=== PATIENT | male | born 1965 | race Caucasian/White ===

== ENCOUNTER 2017-10-10 13:39 | Emergency (ER) | payer BC, OTHER, SELFPAY ==
[2017-10-10 15:47] VITALS: BP 210/110; PULSE 74; RESP 18; TEMP 37; O2SAT 96; BMI 31.0
[2017-10-10 16:05] LABS: Basophils # 0.1 K/mm3 (0-0.2); Basophils % 0.4 % (0.1-2.0); Eosinophils # 0.1 K/mm3 (0.0-0.4); Eosinophils % 1.1 % (0.1-12.0); Hematocrit 48.6 % (42.0-52.0); Hemoglobin 15.3 g/dL (14.1-18.0); Lymphocytes # 2.2 K/mm3 (0.7-4.5); Lymphocytes % 18.5 K/mm3 (10-50); Mean Corpuscular HGB Conc 31.5 g/dL (31.8-35.4); Mean Corpuscular Hemoglobin 25.1 pg (27.0-31.2); Mean Corpuscular Volume 79.5 fl (80-94); Monocytes # 0.6 K/mm3 (0.1-1.0); Monocytes % 5.3 % (1.7-9.3); Neutrophils # 8.8 K/mm3 (1.8-7.8); Neutrophils % 74.7 % (37.0-80.0); Platelet Count 303 K/mm3 (142-424); Red Blood Count 6.12 M/mm3 (4.60-6.20); Red Cell Distribution Width 14.4 % (11.5-17.5); White Blood Count 11.7 K/mm3 (4.8-10.8)
[2017-10-10 16:28] LABS: Alanine Aminotransferase 29 U/L (12-78); Albumin Level 3.6 gm/dL (3.4-5.0); Albumin/Globulin Ratio 1.1 (1.1-1.8); Alkaline Phosphatase 67 U/L (46-116); Anion Gap 8.5 mEq/L (5-15); Bilirubin,Total 0.4 mg/dL (0.2-1.0); Blood Urea Nitrogen 15 mg/dL (7-18); CKMB Relative Index 0.6 U/L (0-4.0); Calcium 8.4 mg/dL (8.5-10.1); Carbon Dioxide 31 mmol/L (21.0-32.0); Chloride 103 mmol/L (98-107); Creatine Kinase 136 U/L (38-174); Creatine Kinase MB 0.8 mg/ml (0.0-3.6); Creatinine Clearance Estimated 95 mg/ml (0-300); Estimated Glomerular Filt Rate > 60 ml/min (>60); GFR (African American) > 60 ML/MIN (>60); Globulin 3.4 gm/dl (1.3-3.2); Glucose 144 mg/dL (74-106); Sodium 139 mmol/L (136-145); Troponin I < 0.02 ng/ml (0.00-0.06)
[2017-10-10 16:30] LABS: Aspartate Amino Transferase 19 U/L (15-37)
[2017-10-10 16:31] LABS: Potassium 3.5 mmoL/L (3.5-5.1)
--- NOTE | 2017-10-10 16:43 | HMH.EDGENADL ---
ED Disposition Clinical Impression: Uncontrolled hypertension Disposition: Home, Self-Care Condition on Discharge: Good Instructions: High Blood Pressure Additional Instructions: See your physician in the office tomorrow as scheduled. Referrals: Oleksandr Velazquez MD [Primary Care Provider] - - Critical Care Critical Care Time: No Attestation: On 10/10/17, the high probability of a clinically significant, sudden or life threatening deterioration of the following system(s) required my full and direct attention, intervention and personal management. The time I documented below is in addition to time spent performing reported procedures but includes the following listed in this critical care notation. Medical Decision Making - Medical Records Medical records reviewed: Yes: I reviewed the patient's medical records. Vital Signs: 10/10/17 15:47 10/10/17 17:29 10/10/17 18:18 Temperature 98.6 F Temperature Source Oral Pulse Rate [Right Radial] 74 Respiratory Rate 18 Blood Pressure 197/103 206/112 Blood Pressure [Left Arm] 210/110 Blood Pressure Mean [Left Arm] 143 Blood Pressure Source [Left Arm] Manual Cuff/ Auscultation 02 Sat by Pulse Oximetry 96 Oxygen Delivery Method Room Air 10/10/17 19:05 Temperature Temperature Source Pulse Rate [Right Radial] Respiratory Rate Blood Pressure 202/109 Blood Pressure [Left Arm] Blood Pressure Mean [Left Arm] Blood Pressure Source [Left Arm] 02 Sat by Pulse Oximetry Oxygen Delivery Method - Lab Data Lab Results 10/10/17 15:56: WBC 11.7 H, RBC 6.12, Hgb 15.3, Hct 48.6, MCV 79.5 L, MCH 25.1 L, MCHC 31.5 L, RDW 14.4, Plt Count 303, MPV 8.0, Neut % (Auto) 74.7, Lymph % (Auto) 18.5, [place] % (Auto) 5.3, Eos % (Auto) 1.1, Baso % (Auto) 0.4, Neut # (Auto) 8.8 H, Lymph # (Auto) 2.2, [place] # (Auto) 0.6, Eos # (Auto) 0.1, Baso # (Auto) 0.1 10/10/17 15:56: Sodium 139, Potassium 3.5, Chloride 103, Carbon Dioxide 31, Anion Gap 8.5, BUN 15, Creatinine 1.20, Estimated Creat Clear 95, Estimated GFR > 60, Est GFR ( Amer) > 60, Glucose 144 H, Calcium 8.4 L, Total Bilirubin 0.4, AST 19, ALT 29, Alkaline Phosphatase 67, Total Creatine Kinase 136, CK-MB (CK-2) 0.8, CK-MB (CK-2) Rel Index 0.6, Troponin I < 0.02, Total Protein 7.0, Albumin 3.6, Globulin 3.4 H, Albumin/Globulin Ratio 1.1 Result diagrams: 10/10/17 15:56 10/10/17 15:56 Orders (Tests/Meds): ED MEDICATIONS Generic Name Dose Route Start Last Admin Trade Name Freq PRN Reason Stop Dose Admin Sodium Chloride 10 ml 10/10/17 16:22 Saline Flush 10ml Syringe IV 11/09/17 16:21 NEEDED PRN Maintain IV Site Discontinued Medications Generic Name Dose Route Start Last Admin Trade Name Freq PRN Reason Stop Dose Admin Labetalol HCl 10 mg 10/10/17 16:52 10/10/17 17:29 Labetalol Hcl 20mg/4ml Syringe IV 10/10/17 16:53 10 mg ONCE ONE Administration Labetalol HCl 10 mg 10/10/17 18:15 10/10/17 18:18 Labetalol Hcl 20mg/4ml Syringe IV 10/10/17 18:16 10 mg ONCE ONE Administration Labetalol HCl 20 mg 10/10/17 19:01 10/10/17 19:05 Labetalol 5mg/Ml 20ml Mdv IV 10/10/17 19:02 20 mg ONCE ONE Administration ORDERS Category Date Time Status EKG Request [ECG Request by /Spenser] Stat Y 10/10/17 16:38 Ordered - ECG Data Tracing #1 EKG interpreted by Sotero Vee MD: Rhythm: sinus Rate: 72 [place]: normal Ectopy: none Conduction: normal ST Segment Changes: none T Wave Changes: none Q Waves: none No evidence of acute ischemia or injury Baseline artifact present, but I consider the EKG adequate for accurate interpretation. - Max Inquiry Pt receiving controlled substance: No Medical Decision Making Narrative: Patient declines prescription for blood pressure medication. He says that he sees his physician tomorrow and wants to wait to get his prescription from him. He has not seen his physician for a year.
[2017-10-10 17:29] VITALS: BP 197/103
[2017-10-10 18:18] VITALS: BP 206/112
[2017-10-10 19:05] VITALS: BP 202/109
== END 2017-10-10 20:38 | disposition home or self-care (01) ==
PROVIDERS: Emergency Provider Emergency Medicine; PCP Family Medicine
DX: I10 Essential (primary) hypertension (principal)
CPT/HCPCS: 80053; 82550; 82553; 84484; 85025; 93005; 93041; 96374; 96376; 99284

== ENCOUNTER 2020-02-06 14:03 | Emergency (ER) | payer BC, SELFPAY ==
[2020-02-06 14:09] VITALS: BP 188/95; PULSE 102; RESP 22; TEMP 36.7; O2SAT 98; BMI 31.1
[2020-02-06 14:19] VITALS: BP 188/95; PULSE 102; RESP 16; TEMP 36.7; O2SAT 98; BMI 30.2
--- NOTE | 2020-02-06 14:26 | HMH.EDUTC ---
[facility] [place] Clinical Impression: Bronchitis Sinusitis Qualifiers: Sinusitis location: unspecified location Chronicity: unspecified Qualified Code(s): J32.9 - Chronic sinusitis, unspecified Disposition: Home, Self-Care Condition on Discharge: Good Instructions: Sinusitis, Sinus Headache, Acute Bronchitis, DI for Sinusitis, DI for Acute Bronchitis, Albuterol, Azithromycin Additional Instructions: ? Start antibiotic today. Be sure to complete entire prescription even if feeling better ? Monitor temp. Tylenol every 4 hours as needed and / or ibuprofen every 6 hours as needed ( As long as your primary care physician has told you that it ok to take both. For fever/aches/pains ER if no less than 101 despite Tylenol or Motrin ? Humidifier/vaporizer or hot steamy shower ? Inhaler every 4-6 hours as needed like we discussed. If unsure how to use it, ask pharmacist to demonstrate how. Should help open airways and improve cough, wheezing, and shortness of breath ? Mucinex during the day for your cough and cough suppressant only at night. Be sure to drink lots of water. Insurance may not cover a prescriptions for mucinex. Might be cheaper to get 400mg tablets and take 2 tablet in the morning, mid-day and evening with lots of water. Follow up IMMEDIATELY for new or worsening of symptoms OR no noticeable improvement over the next 48-72 hours. 911 immediately for any life threatening symptoms such as chest pain or difficulty breathing Your blood pressure was elevated today in the [facility] make sure to follow up with Your family doctor for evaluation and further treatment Prescriptions: Albuterol Sulfate [Albuterol HFA Inhaler] 1 - 2 puffs IH Q4-6H PRN #1 inh PRN Reason: Shortness Of Breath Or Wheezing Prescription Printed Mometasone Furoate [Nasonex] 2 sprays NS DAILY #1 spray.pump Prescription Printed Azithromycin [Z-Adriano 250mg Tab] 250 mg PO DIRECTED #6 tab Prescription Printed Referrals: Provider,Referral, MD [Primary Care Provider] - As needed Time of Disposition: 14:53 Medical Decision Making - Max Inquiry Pt receiving controlled substance: No Max was queried for this patient: No Vital Signs: 02/06/20 14:09 02/06/20 14:19 02/06/20 15:07 Temperature 98.1 F 98.1 F 98.2 F Temperature Source Oral Oral Oral Pulse Rate 80 Pulse Rate [Right] 102 H 102 H Respiratory Rate 22 16 16 Blood Pressure 180/80 H Blood Pressure [Right Arm] 188/95 H 188/95 H Blood Pressure Mean [Right Arm] 126 126 Blood Pressure Source Automatic Cuff Blood Pressure Source [Right Arm] Automatic Cuff Blood Pressure Position Sitting Blood Pressure Position [Right Arm] Sitting 02 Sat by Pulse Oximetry 98 98 Oxygen Delivery Method Room Air Room Air [facility] [place] HPI - General Stated complaint: sore throat,cough,SOA Time Seen by Provider: 02/06/20 14:26 Mode of Arrival: Ambulatory Source of Information: Patient Limitations: No Limitations Description of Symptoms (Recalled from Triage Doc. by RN): Pt advises he has had a dry nagging cough for the past month. Non-productive, denies fever and advises at times he becomes SOA HEENT Symptoms (Recalled from RN notes): No Resp Symptoms (Recalled from RN notes): No Skin Symptoms (Recalled from RN notes): No MS Symptoms (Recalled from RN notes): No Functional Status (Recalled from RN notes): na - History of Present Illness Provider Complaint: Patient state that he has been having a nagging non-productive cough on and off for about a month States that he has been having throat irritation and feeling scratchy at times States that when he is sitting sometimes the cough feels worse and feels like he gets short of breath at times. 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 - Related Data Home Medications Medication Instructions Recorded Confirmed Pravastatin Sodium [Pravachol 40mg 40 mg PO DAILY 10/10/17 10/10/17 Tablet] Previous Rx's
--- NOTE | 2020-02-06 14:27 | XR_ITS ---
PROCEDURE: XR CHEST 2V CLINICAL HISTORY: cough COMPARISON: No exams were available for comparison FINDINGS: The cardiomediastinal silhouette and pulmonary vascularity are within normal limits. The lungs are clear without infiltrates, suspicious nodules, or pleural effusions. There is evidence of old granulomatous disease. IMPRESSION: No acute findings. Dictated by: Fortunato Aranda MD 02/06/2020 14:52 Electronically signed by Fortunato Aranda MD in [place] 02/06/2020 14:52
[2020-02-06 15:07] VITALS: BP 180/80; PULSE 80; RESP 16; TEMP 36.8; O2SAT 98
== END 2020-02-06 15:08 | disposition home or self-care (01) ==
PROVIDERS: Emergency Provider Nurse Practitioner
DX: J20.9 Acute bronchitis, unspecified (principal); J32.9 Chronic sinusitis, unspecified
CPT/HCPCS: 71046; 99201

== ENCOUNTER 2020-06-08 13:57 | Emergency (ER) | payer BC, SELFPAY ==
[2020-06-08 13:58] VITALS: BP 137/100; PULSE 69; RESP 20; O2SAT 97; BMI 22.9
[2020-06-08 14:33] VITALS: BP 213/104; PULSE 62; RESP 20; TEMP 36.7; O2SAT 97; BMI 22.8
--- NOTE | 2020-06-08 15:04 | HMH.EDUTC ---
[facility] [place] Disposition Clinical Impression: Dental abscess Hypertension Qualifiers: Hypertension type: unspecified Qualified Code(s): I10 - Essential (primary) hypertension Disposition: Home, Self-Care Condition on Discharge: Good Instructions: Hypertension (Alternative Therapy), Tooth Abscess Additional Instructions: You was given list of accepting physicans make sure to get Family Doctor and follow up for further treatment Return if needed Straight to ER if any life threatening symptoms Straight to ER if any life threatening symptoms Follow up with Dentist as soon as possible Prescriptions: Amlodipine Besylate/Benazepril [Amlodipine-Benazepril 10-40 mg] 1 each PO DAILY 30 Days #30 cap Transmission [facility]: [facility] Amoxicillin [Amoxicillin 500mg Cap] 500 mg PO TID #30 cap Transmission Status: Received by [facility] 359 Referrals: PCP,No [Primary Care Provider] - As needed Cresencio Trotter [Referring] - Forms: Work/School Release Time of Disposition: 15:15 Medical Decision Making - Max Inquiry Pt receiving controlled substance: No Max was queried for this patient: No Vital Signs: 06/08/20 13:58 06/08/20 14:33 06/08/20 15:06 Temperature 98.0 F Temperature Source Oral Pulse Rate Pulse Rate [Left Radial] 69 62 Respiratory Rate 20 20 Blood Pressure Blood Pressure [Right Arm] 137/100 H 213/104 H 148/78 H Blood Pressure Mean [Right Arm] 112 140 101 Blood Pressure Source [Right Arm] Automatic Cuff Automatic Cuff Blood Pressure Position [Right Arm] Sitting Sitting 02 Sat by Pulse Oximetry 97 97 Oxygen Delivery Method Room Air Room Air 06/08/20 15:13 06/08/20 15:17 Temperature 98.0 F Temperature Source Pulse Rate 62 Pulse Rate [Left Radial] Respiratory Rate 20 Blood Pressure 148/78 H Blood Pressure [Right Arm] 148/78 H Blood Pressure Mean [Right Arm] 101 Blood Pressure Source [Right Arm] Automatic Cuff Blood Pressure Position [Right Arm] Sitting 02 Sat by Pulse Oximetry Oxygen Delivery Method [facility] [place] HPI - General Stated complaint: bp high dizzy Time Seen by Provider: 06/08/20 15:04 Mode of Arrival: Ambulatory Source of Information: Patient Limitations: No Limitations Description of Symptoms (Recalled from Triage Doc. by RN): PATIENT C/O ELEVATED BLOOD PRESSURE. HE REPORTS HE HAS BEEN OUT OF HIS BLOOD PRESSURE MEDICATIONS FOR AT LEAST 1 MONTH. HE STATES HE DID HAVE SOME DIZZINESS EARLY IN THE DAY AT WORK, BUT THAT HAS SUBSIDED. DENIES ANY SYMPTOMS AT THIS TIME HEENT Symptoms (Recalled from RN notes): No Resp Symptoms (Recalled from RN notes): No Skin Symptoms (Recalled from RN notes): No MS Symptoms (Recalled from RN notes): No Functional Status (Recalled from RN notes): WNL - History of Present Illness Provider Complaint: Patient state that he has high blood pressure and has been out of his medication for over a month States that he thinks he is getting an abscessed tooth that for the last couple of days he has been having some swelling and pain in his right lower teeth and not sure if that is causing his blood pressure to be elevated or not States that he was dizzy earlier and they checked his blood pressure and it was elevated so they made him come in States that he is no longer feeling dizzy and feeling better but wanted to see if he could get a refill on his medication until he can get a PCP - Related Data Home Medications Medication Instructions Recorded Confirmed Pravastatin Sodium [Pravachol 40mg 40 mg PO DAILY 10/10/17 10/10/17 Tablet] Amlodipine Besylate/Benazepril 1 cap PO DAILY 06/08/20 06/08/20 [Amlodipine-Benazepril 10-40 mg] Previous Rx's Medication Instructions Recorded Albuterol Sulfate [Albuterol HFA 1 - 2 puffs IH Q4-6H PRN #1 inh 02/06/20 Inhaler] Azithromycin [Z-Adriano 250mg Tab] 250 mg PO DIRECTED #6 tab 02/06/20 Mometasone Furoate [Nasonex] 2 sprays NS DAILY #1 spray.pump 02/06/20
[2020-06-08 15:06] VITALS: BP 148/78
[2020-06-08 15:13] VITALS: BP 148/78
[2020-06-08 15:17] VITALS: BP 148/78; PULSE 62; RESP 20; TEMP 36.7; O2SAT 97
== END 2020-06-08 15:20 | disposition home or self-care (01) ==
PROVIDERS: Emergency Provider Nurse Practitioner
DX: K04.7 Periapical abscess without sinus (principal); I10 Essential (primary) hypertension
CPT/HCPCS: 99202

== ENCOUNTER → 2020-08-25 14:33 | Outpatient (CLI) | payer BC, SELFPAY ==
[2020-08-27 10:10] LABS: Covid-19 Nasal PCR Sendout Lex POSITIVE
== END ==
PROVIDERS: PCP Family Medicine; Visit Provider Family Medicine
DX: Z20.828 Contact with and (suspected) exposure to other viral communicable diseases (principal); U07.1 COVID-19
CPT/HCPCS: U0004

== ENCOUNTER → 2020-12-22 15:24 | Outpatient (CLI) | payer BC, SELFPAY | PROVIDERS: PCP Family Medicine; Visit Provider Family Medicine | DX: Z20.822 Contact with and (suspected) exposure to COVID-19 (principal) | CPT/HCPCS: U0003 ==

== ENCOUNTER 2020-12-29 21:40 | Inpatient (IN) | payer BC, SELFPAY ==
[2020-12-29] VITALS (7 sets, daily range): BP systolic 147–204; BP diastolic 100–160; PULSE 155–181; RESP 16–22; TEMP 37; O2SAT 93–96; BMI 30.4
--- NOTE | 2020-12-29 21:48 | ECG_ITS ---
APPROVED REPORT Exam: Resting ECG HR:186 bpm ECG Measurements Heart Rate 186 AXES QRSd 88 QRS 76 QT 248 T -26 QTc 436 Conclusion Atrial fibrillation with rapid ventricular response with premature ventricular or aberrantly conducted complexes Minimal voltage criteria for LVH, may be normal variant Septal infarct, age undetermined Abnormal ECG Electronically signed by : Christophe Mary, 12/30/2020 17:39:00
--- NOTE | 2020-12-29 22:01 | XR_ITS ---
PROCEDURE: XR CHEST PORTABLE CLINICAL HISTORY: SOa Shortness of air COMPARISON: CR XR CHEST 2V from 02/06/2020 FINDINGS: Cardiomegaly. There are low lung volumes. There is prominence of the interstitium which appears greater on the right compared to the left. This in part may be due to the radiographic technique with right aspect of the chest be less penetrated. No lobar consolidation or collapse. Nodularity is present in the left perihilar region. This had a somewhat similar appearance on the previous exam and is felt to be due to a overlapping vessels. No acute bony abnormalities. IMPRESSION: Low lung volumes with mild cardiomegaly. Interstitium appears prominent as described above which may in part be due to the low lung volumes and radiographic technique. Cannot exclude interstitial pneumonitis on the right. Upright PA and lateral chest or chest CT may provide further evaluation. Dictated by: Fortunato Aranda MD 12/30/2020 05:21 Fortunato Aranda MD in [place] 12/30/2020 05:21
[2020-12-29 22:12] LABS: Basophils # 0.1 K/mm3 (0-0.2); Basophils % 0.4 % (0.1-2.0); Eosinophils # 0.2 K/mm3 (0.0-0.4); Eosinophils % 1.7 % (0.1-12.0); Hematocrit 51.8 % (42.0-52.0); Hemoglobin 16.5 g/dL (14.1-18.0); Lymphocytes # 2.7 K/mm3 (0.7-4.5); Lymphocytes % 20.8 % (10-50); Mean Corpuscular HGB Conc 31.8 g/dL (31.8-35.4); Mean Corpuscular Hemoglobin 23.9 pg (27.0-31.2); Mean Corpuscular Volume 75.2 fl (80-94); Mean Platelet Volume 7.5 fl (7.4-10.4); Monocytes # 0.7 K/mm3 (0.1-1.0); Monocytes % 5.7 % (1.7-9.3); Neutrophils # 9.1 K/mm3 (1.8-7.8); Neutrophils % 71.4 % (37.0-80.0); Platelet Count 253 K/mm3 (142-424); Red Blood Count 6.89 M/mm3 (4.60-6.20); Red Cell Distribution Width 14.8 % (11.5-17.5); White Blood Count 12.8 K/mm3 (4.8-10.8)
[2020-12-29 22:14] LABS: Alanine Aminotransferase 25 U/L (12-78); Albumin Level 4.2 g/dl (3.5-5.0); Albumin/Globulin Ratio 1.4 (1.1-1.8); Alkaline Phosphatase 87 U/L (38-126); Aspartate Amino Transferase 26 U/L (17-59); Bilirubin,Total 0.7 mg/dl (0.2-1.3); Blood Urea Nitrogen 19 mg/dl (9-20); Calcium 9.4 mg/dl (8.4-10.2); Carbon Dioxide 21 mmol/L (22.0-30.0); Creatinine Clearance Estimated 105 mL/min (50-200); Estimated Glomerular Filt Rate 77 ml/min (>60); GFR (African American) 93 ML/MIN (>60); Globulin 2.9 g/dL (1.3-3.2); Glucose 128 mg/dl (74-100); Potassium 4.1 mmoL/L (3.5-5.1); Sodium 140 mmol/L (136-145); Total Protein,Serum 7.1 g/dl (6.3-8.2)
[2020-12-29 22:19] LABS: C-Reactive Protein 8.1 mg/L (0-4)
--- NOTE | 2020-12-29 22:29 | HMH.EDSOB ---
ED Disposition Clinical Impression: Atrial fibrillation with rapid ventricular response Disposition: Admitted As Inpatient Condition on Discharge: Good - Critical Care Critical Care Time: No Attestation: On 12/29/20, the high probability of a clinically significant, sudden or life threatening deterioration of the following system(s) required my full and direct attention, intervention and personal management. The time I documented below is in addition to time spent performing reported procedures but includes the following listed in this critical care notation. Medical Decision Making - Medical Records Medical records reviewed: Yes: I reviewed the patient's medical records. - Max Inquiry Pt receiving controlled substance: No Vital Signs: 12/29/20 21:41 12/29/20 22:30 Temperature 98.6 F Temperature Source Oral Pulse Rate 177 H Pulse Rate [Right] 179 H Respiratory Rate 16 20 Blood Pressure 147/119 H Blood Pressure [Right Arm] 165/128 H Blood Pressure Mean 126 Blood Pressure Mean [Right Arm] 140 02 Sat by Pulse Oximetry 95 94 L Oxygen Delivery Method Room Air Room Air - Lab Data Lab results reviewed: Yes: I reviewed the patient's lab results. Lab Results 12/29/20 21:55: WBC 12.8 H, RBC 6.89 H, Hgb 16.5, Hct 51.8, MCV 75.2 L, MCH 23.9 L, MCHC 31.8, RDW 14.8, Plt Count 253, MPV 7.5, Neut % (Auto) 71.4, Lymph % (Auto) 20.8, [place] % (Auto) 5.7, Eos % (Auto) 1.7, Baso % (Auto) 0.4, Neut # (Auto) 9.1 H, Lymph # (Auto) 2.7, [place] # (Auto) 0.7, Eos # (Auto) 0.2, Baso # (Auto) 0.1, ESR 1 12/29/20 21:55: Sodium 140, Potassium 4.1, Carbon Dioxide 21 L, BUN 19, Creatinine 1.00, Estimated Creat Clear 105, Estimated GFR 77, Est GFR ( Amer) 93, Glucose 128 H, Calcium 9.4, Total Bilirubin 0.7, AST 26, ALT 25, Alkaline Phosphatase 87, Troponin I < 0.01, C-Reactive Protein 8.1 H, Total Protein 7.1, Albumin 4.2, Globulin 2.9, Albumin/Globulin Ratio 1.4, Procalcitonin 0.056 Result diagrams: 12/29/20 21:55 12/29/20 21:55 Orders (Tests/Meds): ED MEDICATIONS Generic Name Dose Route Start Last Admin Trade Name Freq PRN Reason Stop Dose Admin Diltiazem HCl 100 mg/ Sodium 100 mls @ 5 mls/hr 12/29/20 22:15 12/29/20 22:13 Chloride IV 01/28/21 22:14 5 mls/hr .Q20H KARLIE Administration Protocol Discontinued Medications Generic Name Dose Route Start Last Admin Trade Name Freq PRN Reason Stop Dose Admin Diltiazem HCl 10 mg 12/29/20 22:11 12/29/20 22:13 Diltiazem 25mg/5ml Vial IV 12/29/20 22:12 10 mg ONCE ONE Administration Furosemide 40 mg 12/29/20 22:22 12/29/20 22:29 Furosemide 40mg/4ml Vial IV 12/29/20 22:23 40 mg ONCE ONE Administration ORDERS Category Date Time Status Chest XR -- portable [XR chest portable] Stat Exams 12/29/20 22:01 Taken BNP [Brain Natriuretic Peptide] Stat Lab 12/29/20 21:55 Received C-Reactive Protein Stat Lab 12/29/20 21:55 Results Comprehensive Metabolic Panel Stat Lab 12/29/20 21:55 Results Covid-19 Nasal PCR ([facility]) Routine Lab 12/29/20 22:10 Received Free T4 (Free Thyroxine) Stat Lab 12/29/20 21:55 Received Procalcitonin Stat Lab 12/29/20 21:55 Results Thyroid Stimulating Hormone Stat Lab 12/29/20 21:55 Results Troponin I Q3H Lab 12/30/20 01:15 Ordered Troponin I Q3H Lab 12/30/20 04:15 Ordered Troponin I Stat Lab 12/29/20 21:55 Results - Radiology Data #1 Image(s): Chest Image Reviewed: Yes I reviewed the patient's radiology image Preliminary Findings: Abnormal (cm/chf) - ECG Data Tracing #1 Arrhythmias present: afib, aflutter Ischemic changes: non-specific ST-T wave changes - Physician Consults Physician Consulted: rosa Reason -: Pt condition - KISHORE Score for Non-Stemi Age of Patient: 50-59 years old Heart Rate: 150-199 bpm Systolic Blood Pressure: 160-199 mmHg Serum Creatinine: 0.80-1.19 mg/dl CHF [place] Class: II-Pulmonary Rales or Jug Other Risk Factors: None Non-Stemi Risk Sco
[2020-12-29 22:33] LABS: Procalcitonin 0.056 ng/mL (0.0-2.0)
[2020-12-29 22:36] LABS: Erythrocyte Sedimentation Rate 1 mm/hr (0-20); Troponin I < 0.01 ng/ml (0.00-0.034)
[2020-12-29 22:46] LABS: NT Pro Brain Natriuretic Pep. 2370 pg/mL (0-125)
[2020-12-29 22:57] LABS: Lactic Acid 0.9 mmol/L (0.7-2.1)
[2020-12-29 22:57] LABS: Anion Gap 13.1 mEq/L (5-15); Chloride 110 mmol/L (98-107)
[2020-12-29 23:02] LABS: Thyroid Stimulating Hormone < 0.02 uIU/mL (0.465-4.68)
--- NOTE | 2020-12-29 23:07 | PC.NURSE ---
cardizem increased to 10
--- NOTE | 2020-12-29 23:11 | PC.NURSE ---
Enoxaparin medication would not scan. verified by Briana Barone.
[2020-12-29 23:14] LABS: Free T4 (Free Thyroxine) 4.05 ng/dl (0.78-2.19)
--- NOTE | 2020-12-29 23:27 | PC.NURSE ---
cardizem increased to 15
[2020-12-30] VITALS (26 sets, daily range): BP systolic 119–164; BP diastolic 77–109; PULSE 100–186; RESP 15–20; TEMP 36.6–37.3; O2SAT 90–98; BMI 30.3; BMI 28.2
--- NOTE | 2020-12-30 00:20 | PC.NURSE ---
cardizem dcreased to 10
--- NOTE | 2020-12-30 00:58 | PC.NURSE ---
patient to the floor at this time via wheelchair.
--- NOTE | 2020-12-30 01:04 | PC.NURSE ---
patient up to floor via wheelchair.
[2020-12-30 01:22] LABS: Troponin I < 0.01 ng/ml (0.00-0.034)
--- NOTE | 2020-12-30 03:46 | PC.NURSE ---
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 blood pressures remain systolic greater than 130s and diastolic greater than 100. patient denies any soa. o2 was applied for history of sleep apnea, patient states he doesn't wear cpap at home but is supposed to. denies pain, soa, cp. dr. bolanos notified, no new orders received
[2020-12-30 04:26] LABS: Basophils % 0.2 % (0.1-2.0); Eosinophils # 0.1 K/mm3 (0.0-0.4); Hematocrit 50.9 % (42.0-52.0); Hemoglobin 16.3 g/dL (14.1-18.0); Lymphocytes # 0.7 K/mm3 (0.7-4.5); Lymphocytes % 5.5 % (10-50); Mean Corpuscular Hemoglobin 24.3 pg (27.0-31.2); Mean Corpuscular Volume 75.9 fl (80-94); Mean Platelet Volume 7.6 fl (7.4-10.4); Monocytes # 0.2 K/mm3 (0.1-1.0); Monocytes % 1.8 % (1.7-9.3); Neutrophils # 11.5 K/mm3 (1.8-7.8); Neutrophils % 91.6 % (37.0-80.0); Platelet Count 245 K/mm3 (142-424); White Blood Count 12.6 K/mm3 (4.8-10.8)
[2020-12-30 04:32] LABS: MANUAL DIFFERENTIAL MANUAL DIFFERENTIAL (MANUAL DIFF)
[2020-12-30 04:33] LABS: Anion Gap 15.7 mEq/L (5-15); Blood Urea Nitrogen 19 mg/dl (9-20); Calcium 9.3 mg/dl (8.4-10.2); Carbon Dioxide 19 mmol/L (22.0-30.0); Chloride 109 mmol/L (98-107); Chol/HDL Ratio 6.1 (1-3.5); Cholesterol 188 mg/dl (140-200); Creatinine Clearance Estimated 97 mL/min (50-200); Estimated Glomerular Filt Rate 77 ml/min (>60); GFR (African American) 93 ML/MIN (>60); Glucose 163 mg/dl (74-100); HDL Cholesterol 31 mg/dl (40-60); Magnesium 2.1 mg/dl (1.6-2.3); Potassium 3.7 mmoL/L (3.5-5.1); Sodium 140 mmol/L (136-145); Triglycerides 66 mg/dl (30-150); VLDL Cholesterol 13 mg/dL (0-40)
[2020-12-30 04:45] LABS: Direct LDL Cholesterol 136.34 mg/dL (100-129)
[2020-12-30 05:05] LABS: Troponin I < 0.01 ng/ml (0.00-0.034)
[2020-12-30 05:26] LABS: Lymphocytes % 4 % (10-50); Neutrophils % 96 % (42-76); Total Cells Counted 100
[2020-12-30 05:27] LABS: Acanthocytes 1+; Ovalocytes 1+; Platelet Estimate Normal; Stomatocytes 1+
--- NOTE | 2020-12-30 05:34 | PC.NURSE ---
shift summary. patient has denies cp, soa, nausea or vomiting. panel monitor has continued to show afib with rvr with rate 130s to 160s. patient remains hypertensive. patient prepped for possible heart cath with cardiology consult. voiding clear, yellow urine.
--- NOTE | 2020-12-30 07:33 | HMH.HP ---
*Admission Date: 12/30/20 *Chief complaint: Shortness of breath *History of present illness: 55-year-old male with history of hypertension presented to the emergency department after 2 to 3 days of shortness of breath with activity. Patient admits that approximately 4 to 5 days prior to his visit to the ER he was out walking was able to walk the [place]. The following day he noticed significant lack of activity tolerance and became winded rather easily when ambulating. He denies having chest pain during any of these events. He does report 1 day prior to coming to the ER sensation as if his heart was beating rapidly. He denies diaphoresis. He denies cough, orthopnea, paroxysmal nocturnal dyspnea. He denies swelling in the feet. Patient's past medical history is significant for hypertension. Patient was admitted and placed on a Cardizem drip with very little change in heart rate as patient remains in atrial fibrillation with pulse of 150s to 160s [facility] History I have reviewed the patient's past medical history: Yes Medical History: Reports:: Hypertension Denies:: Cancer, Diabetes Mellitus Type 1, Diabetes Mellitus Type 2, MRSA *Have you ever received a pneumonia vaccine?: No *Have you received a flu vaccine this season?: No Laterality Cases: Bilateral: Other Amputation: No Fractures: No - *Social History Smoking Status: Never smoker Alcohol Intake: never *Occupational Status:: employed *Travel in the last 8 weeks: None Family Hx:: Coronary Artery Disease Comment: Possible arrhythmia in his mother Review of Systems - Constitutional Denies anorexia, Denies body ache(s) - Eyes Denies blind spots, Denies blurry vision - ENT Denies difficulty swallowing - *Cardiovascular Reports shortness of breath with activity, Reports rapid, pounding, or irregular heartbeat, Denies chest pain, Denies chest pain at rest, Denies chest pain with activity, Denies leg pain with activity, Denies generalized swelling, Denies irregular heart rhythm - *Respiratory Reports shortness of breath with activity, Denies change in phlegm color, Denies chest congestion, Denies cough, Denies shortness of breath - *Gastrointestinal Denies belching, Denies bloating - *Genitourinary Denies difficulty urinating, Denies difficulty with ejaculations - *Musculoskeletal Denies abnormal walking, Denies joint pain - Integumentary/Breasts Denies hair loss - *Neurologic Denies abnormal walking, Denies localized weakness, Denies headache(s) - Psychiatric Denies abnormal sleep pattern, Denies lack of enjoyment Meds Home Medications Medication Instructions Recorded Confirmed Type Amlodipine Besylate/Benazepril 1 cap PO DAILY 06/08/20 12/30/20 History [Amlodipine-Benazepril 10-40 mg] Allergies Allergy/AdvReac Type Severity Reaction Status Date / Time From [facility] (FOOD/DRUG) Allergy Intermediate I-ITCHING Uncoded 09/25/17 15:04 Exam Vital signs and Labs for Last 24 Hours: Temp Pulse Resp BP Pulse Ox 98.7 F 152 H 20 152/86 H 94 L 12/30/20 04:00 12/30/20 06:00 12/30/20 06:00 12/30/20 06:00 12/30/20 06:00 Laboratory Results - last 24 hr 12/29/20 21:55: WBC 12.8 H, RBC 6.89 H, Hgb 16.5, Hct 51.8, MCV 75.2 L, MCH 23.9 L, MCHC 31.8, RDW 14.8, Plt Count 253, MPV 7.5, Neut % (Auto) 71.4, Lymph % (Auto) 20.8, [place] % (Auto) 5.7, Eos % (Auto) 1.7, Baso % (Auto) 0.4, Neut # (Auto) 9.1 H, Lymph # (Auto) 2.7, [place] # (Auto) 0.7, Eos # (Auto) 0.2, Baso # (Auto) 0.1, ESR 1 12/29/20 21:55: Sodium 140, Potassium 4.1, Chloride 110 H, Carbon Dioxide 21 L, Anion Gap 13.1, BUN 19, Creatinine 1.00, Estimated Creat Clear 105, Estimated GFR 77, Est GFR ( Amer) 93, Glucose 128 H, Calcium 9.4, Total Bilirubin 0.7, AST 26, ALT 25, Alkaline Phosphatase 87, Troponin I < 0.01, C-Reactive Protein 8.1 H, Total Protein 7.1, Albumin 4.2, Globulin 2.9, Albumin/Globulin Ratio 1.4, Procalcitonin 0.056, TSH < 0.02 L 12/29
--- NOTE | 2020-12-30 07:43 | P.CONPHA_ITS ---
[facility] Pharmacy VTE Monitoring - Patient Demographics Admission date: 12/30/20 Report Date: 12/30/20 Time: 07:43 Allergies/Adverse Reactions: Patient Allergies From [facility] (FOOD/DRUG) Allergy (Intermediate, Uncoded 09/25/17 15:04) I-ITCHING Height: 1.73 m Weight: 84.141 kg Patient Problems: Current Active Problems Hypertension (Acute) Atrial fibrillation with rapid ventricular response (Acute) - VTE Risk Labs: VTE Related Lab Results Hgb 16.3 g/dL (14.1-18.0) 12/30/20 04:15 Hct 50.9 % (42.0-52.0) 12/30/20 04:15 Plt Count 245 K/mm3 (142-424) 12/30/20 04:15 BUN 19 mg/dl (9-20) 12/30/20 04:15 Creatinine 1.00 mg/dl (0.66-1.25) 12/30/20 04:15 Estimated Creat Clear 97 mL/min (50-200) 12/30/20 04:15 VTE Score: 2 VTE Risk Level: Very Low Risk - Prophylaxis VTE Prophylaxis Ordered?: Yes Types of VTE Prophylaxis: TEDS Knee High, Pharmacological Location of Applied Device: Bilateral Lower Extremeties Pharmacologic Type: Other (ELIQUIS)
--- NOTE | 2020-12-30 07:55 | US_ITS ---
PROCEDURE: US THYROID CLINICAL INDICATION: hyperthyroidism COMPARISON: No exams were available for comparison FINDINGS: Right lobe: 3.9cm x 5.8cm x 4.0cm there is diffuse heterogeneous echogenicity. 11 mm mostly cystic nodule present in the upper pole. In light of the diffuse heterogeneous echogenicity some areas have a nodular contour but not demonstrated in both planes. Left lobe: 3.5cm x 5.8cm x 4.1cm. Diffuse heterogeneous echogenicity. Complex cystic nodule in the mid polar region at 12 mm. The isthmus is thickened at 17 mm. Isthmus: Thickened at 17 mm Additional findings: IMPRESSION: Enlarged thyroid gland consistent with goiter with diffuse heterogeneous echogenicity. Some areas have a nodular contour but not definitely identified in both planes. Benign-appearing cystic nodules are present bilaterally. Consider six-month follow-up to confirm stability of the heterogeneous echogenicity with questionable nodular involvement. Dictated by: Fortunato Aranda MD 12/31/2020 06:01 Fortunato Aranda MD in [place] 12/31/2020 06:01
--- NOTE | 2020-12-30 08:00 | CA_ITS ---
APPROVED REPORT EXAM: Comprehensive 2D, Doppler, and color-flow Echocardiogram Land [employer] Specialist: Almaz Harris RVT Ht: 5 ft 8 in Wt: 200lbs BSA: 2.04 BP: 147/119 mmHg Indications: A-FIB,SOA 2D Dimensions LVOT 1.59 cm (M/F) 1.5-2.5 LA Volume 73.00 mL LA Volume Index 35.78 mL/m2 (M/F) 16-34 M-Mode Dimensions RVDd 2.45 cm (0.9-2.6) LA Diam 5.09 cm (1.9-4.0) LVDd 5.07 cm (3.5-5.7) Ao Diam 2.93 cm (2.0-3.7) LVDs 3.62 cm (3.5-5.7) IVSd 0.84 cm (0.6-1.1) PWd 1.17 cm (0.6-1.1) EF (Teich) 54.80% FS 28.60% EDV (Teich) 122.10 mL ESV (Teich) 55.20 mL Pulmonary Valve PV Peak Velocity 118.00 (50-150 cm/s) Tricuspid Valve TR P. Velocity 248.00 cm/s RAP Estimate 10.00 mmHg RVSP 34.60 mmHg Left Ventricle Technically difficult study because of the patient factors, patient was in atrial fibrillation with rapid ventricular response throughout this study. Left atrium is moderately enlarged, left ventricle is normal size, visually estimated ejection fraction is 40 to 45%, there is no obvious regional wall motion abnormality, ejection fraction is difficult for accurate assessment due to A. fib with rapid ventricular response. Right Ventricle Right atrium and right ventricle are normal size and contractility. Aortic Valve Aortic valve is minimally thickened and calcified, there is no aortic stenosis or aortic insufficiency. Mitral Valve Mitral valve is grossly normal, there is mild mitral regurgitation. Tricuspid Valve Tricuspid valve grossly normal, there is trace tricuspid regurgitation. Pulmonic Valve Pulmonic valve is poorly visualized. Great Vessels Aortic root is normal size. Pericardium No significant pericardial effusion noted. Conclusion 1. Technically difficult study because of the patient factors and patient was in atrial fibrillation with rapid ventricular response throughout this study, which makes it difficult to accurately assess systolic function. Visually estimated ejection fraction is approximately 40 to 45%. 2. Mild mitral and tricuspid regurgitation. 3. No significant pericardial effusion noted. Electronically signed by : Dipak Bradford, 12/30/2020 17:03:41
--- NOTE | 2020-12-30 09:57 | HMH.CNCARD ---
History of Present Illness Consult date: 12/30/20 Requesting physician: Christophe Kumar Consult reason: atrial fibrillation Chief complaint: SOA Additional Medical History:: 1. Hypertension, treated for about 10 years 2. Hyperthyroidism, noticed this admission 12/2020 3. Family history of coronary artery disease in his mother and father in their 70s 4. Obstructive sleep apnea, noncompliant with CPAP therapy History of present illness: 55-year-old male with history of hypertension presented to the emergency department after 2 to 3 days of shortness of breath with activity. Patient admits that approximately 4 to 5 days prior to his visit to the ER he was out walking was able to walk the [place]. The following day he noticed significant lack of activity tolerance and became winded rather easily when ambulating. He denies having chest pain during any of these events. He does report 1 day prior to coming to the ER sensation as if his heart was beating rapidly. He denies diaphoresis. He denies cough, orthopnea, paroxysmal nocturnal dyspnea. He denies swelling in the feet. The above per Dr. Kumar The patient does admit to missing his medication (including carvedilol) over the last several days after running out while being self quarantined due to 's recent Covid diagnosis prior to a procedure. Both have been asymptomatic except for the patient's above shortness of air for the last couple of days. He does admit that he has sleep apnea but has not been using his CPAP regularly. Non-smoker, nondrinker Denies history of diabetes or hyperlipidemia. [facility] History Medical History: Reports:: Hypertension Denies:: Cancer, Diabetes Mellitus Type 1, Diabetes Mellitus Type 2, MRSA *Have you ever received a pneumonia vaccine?: No *Have you received a flu vaccine this season?: No Laterality Cases: Bilateral: Other Amputation: No Fractures: No - *Social History Smoking Status: Never smoker Alcohol Intake: never *Occupational Status:: employed *Travel in the last 8 weeks: None Family Hx:: Coronary Artery Disease Meds Home Medications Medication Instructions Recorded Confirmed Type Amlodipine Besylate/Benazepril 1 cap PO DAILY 06/08/20 12/30/20 History [Amlodipine-Benazepril 10-40 mg] carvediloL [Carvedilol 12.5mg Tab] 12.5 mg PO BID 12/30/20 12/30/20 History Allergies Allergy/AdvReac Type Severity Reaction Status Date / Time From [facility] (FOOD/DRUG) Allergy Intermediate I-ITCHING Uncoded 09/25/17 15:04 Exam Vital signs and Labs for Last 24 Hours: Temp Pulse Resp BP Pulse Ox 98.2 F 152 H 20 152/86 H 94 L 12/30/20 07:58 12/30/20 06:00 12/30/20 06:00 12/30/20 06:00 12/30/20 06:00 Laboratory Results - last 24 hr 12/29/20 21:55: WBC 12.8 H, RBC 6.89 H, Hgb 16.5, Hct 51.8, MCV 75.2 L, MCH 23.9 L, MCHC 31.8, RDW 14.8, Plt Count 253, MPV 7.5, Neut % (Auto) 71.4, Lymph % (Auto) 20.8, [place] % (Auto) 5.7, Eos % (Auto) 1.7, Baso % (Auto) 0.4, Neut # (Auto) 9.1 H, Lymph # (Auto) 2.7, [place] # (Auto) 0.7, Eos # (Auto) 0.2, Baso # (Auto) 0.1, ESR 1 12/29/20 21:55: Sodium 140, Potassium 4.1, Chloride 110 H, Carbon Dioxide 21 L, Anion Gap 13.1, BUN 19, Creatinine 1.00, Estimated Creat Clear 105, Estimated GFR 77, Est GFR ( Amer) 93, Glucose 128 H, Calcium 9.4, Total Bilirubin 0.7, AST 26, ALT 25, Alkaline Phosphatase 87, Troponin I < 0.01, C-Reactive Protein 8.1 H, Total Protein 7.1, Albumin 4.2, Globulin 2.9, Albumin/Globulin Ratio 1.4, Procalcitonin 0.056, TSH < 0.02 L 12/29/20 21:55: Free T4 4.05 H 12/29/20 21:55: NT-Pro-B Natriuret Pep 2370 H 12/29/20 22:25: Lactate 0.9 12/30/20 00:53: Troponin I < 0.01 12/30/20 04:15: Troponin I < 0.01 12/30/20 04:15: WBC 12.6 H, RBC 6.70 H, Hgb 16.3, Hct 50.9, MCV 75.9 L, MCH 24.3 L, MCHC 32.0, RDW 15.0, Plt Count 245, MPV 7.6, Neut % (Auto) 91.6 H, Lymph % (Auto) 5.5 L, [place] % (Auto) 1.8, Eos % (Auto) 1.0, Baso % (Auto) 0.2, Neut # (Auto) 11.5 H, Lymp
--- NOTE | 2020-12-30 10:15 | HMH.PHAINT ---
MEDICATION RECONCILIATION COMPLETED ON PATIENT USING LIST FROM MD OFFICE. -LEATHA LIU, ABDULLAHID
--- NOTE | 2020-12-30 10:28 | CT_ITS ---
PROCEDURE: CT ANGIO CHEST CLINCIAL INDICATION: Interstitial pneumonitis on R, SOA, look for PE COMPARISON: CR XR CHEST PORTABLE from 12/29/2020 TECHNIQUE: IV Contrast: 70ML Isovue 370 Axial images obtained with sagittal and coronal reformats. All CT scans at the facility use one or more dose reduction, viz: automated exposure control, ma/kV adjustment per patient size (including targeted exams where dose is matched to indication, i.e. head), or iterative reconstruction technique. FINDINGS: Routine post enhanced images are performed along with. The thyroid gland is enlarged on both sides and is incompletely imaged. There is a 8 mm nodule in the right thyroid lobe with heterogeneous density bilaterally. There is mild deviation of the trachea toward the right. High-resolution images. No evidence of aortic aneurysm. No evidence of pulmonary embolus. No mediastinal or hilar mass. There is a small medium-sized right effusion and a small left effusion. There is bibasilar atelectasis. There is a faint nodular opacity in the right CP angle laterally. This measures approximately 6 mm and may be due to an area of atelectasis. Stability may be confirmed with follow-up There is evidence of old granulomatous disease. No lobar consolidation or collapse is evident. Previous radiograph suggested prominence of the interstitium of the right lung greater than left. High-resolution images are obtained in do not support that finding. The abnormality may been related to interstitial changes from CHF which have improved. None the less common interstitium has an unremarkable appearance at this time. No acute bony findings. IMPRESSION: 1. Medium-sized right effusion and small left effusion with bibasilar atelectasis. 2. Enlarged thyroid gland 3. Unremarkable appearing pulmonary interstitium 4. Nonspecific 6 mm nodular opacity right CP angle which may be due to overlying atelectatic change. Stability may be confirmed with follow-up Dictated by: Fortunato Aranda MD 12/30/2020 15:04 Fortunato Aranda MD in [place] 12/30/2020 15:04
--- NOTE | 2020-12-30 14:29 | PC.NURSE ---
Addendum entered by Ирина Denney RN 12/30/20 14:34: new orders: dc ivf Original Note: notified Sushma Denny that pt CTA shows possible excess fluid. pt hr also noted to be consistently 120's to 130's. and pt states he would like to have something to eat, new orders: 60mg IV Lasix (order entered by cherie) metoprolol 25mg (order entered by cherie) pt may have diet order.
--- NOTE | 2020-12-30 19:40 | PC.NURSE ---
pt has rested well, lung sounds are clear. hr has remained in the mid 110's -to upper 120's. pt has remained asymptomatic. multiple meds attempted to lower rate without success. nad noted.
[2020-12-31] VITALS (15 sets, daily range): BP systolic 105–151; BP diastolic 60–102; PULSE 82–139; RESP 17–18; TEMP 36.8; O2SAT 92–95; BMI 28.4
--- NOTE | 2020-12-31 05:31 | PC.NURSE ---
shift summary. patient remains in a-fib with more controlled rate this am. cardizem drip increased to 10 approximately 2200 for rates sustaining 105 to 120s. cardizahidam
--- NOTE | 2020-12-31 05:38 | PC.NURSE ---
shift summary patient remains in afib with more controlled rate this am. cardizem drip currently infusing at 5 mg/hr with rate sustaining 70s to 90s. cardizem was increased at 2200 for rates up into the 120s. at approximately 0200 rates where sustaining in the high 90s low 100s so cardizem drip decreased back down to 5 mg. patient had one short episode of run of aberrant beats, patient remained symptom free. breath sounds remain clear throughout. voiding clear yellow urine. denies pain, nausea, vomiting or diarrhea
--- NOTE | 2020-12-31 07:24 | HMH.ACPN2 ---
Internal Medicine - PN: Subj *Date: 12/31/20 *Time: 07:24 Interval history: Patient remains in A. fib. Right has been as low as the high 90s but when patient is awake primarily is in the 110s to 120s. Additional thyroid labs and ultrasound results are still pending Exam Vital signs and Labs for Last 24 Hours: Temp Pulse Resp BP Pulse Ox 98.2 F 99 H 18 128/75 92 L 12/31/20 04:00 12/31/20 06:00 12/31/20 06:00 12/31/20 06:00 12/31/20 06:00 I & O for Last 24 hours: Intake & Output 12/28/20 12/29/20 12/30/20 12/31/20 11:59 11:59 11:59 11:59 Intake Total 326 / 326 449 / 449 Output Total 1480 / 1480 2049 / 2049 Balance -1154 / -1154 -1601 / -1601 Weight 185 lb 8 oz 187 lb 7 oz Narrative: Patient looks well. Lungs remain clear. Heart is irregularly irregular and tachycardic. Abdomen is soft. Extremities are without edema Assessment and Plan (1) Atrial fibrillation with rapid ventricular response Status: Acute Category: Medical Code(s): I48.91 - Unspecified atrial fibrillation (2) Hypertension Status: Acute Qualifiers: Hypertension type: unspecified Qualified Code(s): I10 - Essential (primary) hypertension Category: Medical Code(s): I10 - Essential (primary) hypertension (3) Obstructive sleep apnea Status: Acute Category: Medical Code(s): G47.33 - Obstructive sleep apnea (adult) (pediatric) (4) Hyperthyroidism Status: Acute Category: Medical Code(s): E05.90 - Thyrotoxicosis, unspecified without thyrotoxic crisis or storm - Assessment and plan all Dx Assessment and Plan for all problems:: 1. Increase his metoprolol to 100 mg twice daily. 2. Start propylthiouracil 50 mg every 8 hours first dose this morning
--- NOTE | 2020-12-31 11:01 | HMH.PNCARD ---
Subjective Date: 12/31/20 Time: 10:00 Principal diagnosis: Atrial fibrillation with RVR Interval history: 55-year-old male with history of hypertension presented to the emergency department after 2 to 3 days of shortness of breath with activity yesterday. The following day he noticed significant lack of activity tolerance and became winded rather easily when ambulating. He denies having chest pain during any of these events. Pt does complain of palpitations. Patient denies chest pain, tightness or pressure this a.m. Patient denies shortness of breath. Patient does admit he has not been taking his medications as he should. Stressed to patient the importance of taking medications as prescribed. Patient verbalized understanding. teletypesetter monitor reveals atrial fibrillation RVR. Patient does remain on Cardizem drip at 5 mg/h. Heart rate ranges from 111 to 136 bpm. Patient is noted to have hyperthyroidism in which medication has been started per PCP. Hyperthyroidism may be attributed to the atrial fibrillation RVR. Once hyperthyroidism is more manageable, hopefully the atrial fibrillation will be more controlled. PCP did increase metoprolol 100 mg twice daily for better heart rate and BP control. Will add digoxin 0.125 mg daily for rate and rhythm control. We will continue Cardizem drip at 5 mg/h and will also try to titrate down as long as heart rate and BP can be tolerated. Echo: Conclusion 1. Technically difficult study because of the patient factors and patient was in atrial fibrillation with rapid ventricular response throughout this study, which makes it difficult to accurately assess systolic function. Visually estimated ejection fraction is approximately 40 to 45%. 2. Mild mitral and tricuspid regurgitation. 3. No significant pericardial effusion noted. Chest CTA:IMPRESSION: 1. Medium-sized right effusion and small left effusion with bibasilar atelectasis. 2. Enlarged thyroid gland 3. Unremarkable appearing pulmonary interstitium 4. Nonspecific 6 mm nodular opacity right CP angle which may be due to overlying atelectatic change. Stability may be confirmed with follow-up Thank you for allowing cardiology to participate in the care of this patient. Exam Vital signs and Labs for Last 24 Hours: Temp Pulse Resp BP Pulse Ox 98.2 F 130 H 18 151/79 H 93 L 12/31/20 04:00 12/31/20 10:00 12/31/20 10:00 12/31/20 10:00 12/31/20 10:00 I & O for Last 24 hours: Intake & Output 12/28/20 12/29/20 12/30/20 12/31/20 23:59 23:59 23:59 23:59 Intake Total 686 / 686 449 / 449 Output Total 980 / 980 2350 / 2350 200 / 200 Balance -980 / -980 -1664 / -1664 249 / 249 Weight 200 lb 185 lb 8 oz 187 lb 7 oz - Constitutional no acute distress, mild distress, average body habitus, cooperative - *Routine HEENT Exam Head: Present: normocephalic ENT: Present: mucous membranes moist - *Routine Neck Exam Present: supple, full ROM, normal carotid upstroke. Absent: JVD, carotid bruit, lymphadenopathy - *Routine Respiratory Exam Present: accessory muscle use, CTA bilaterally - *Routine Cardiovascular Exam Present: RRR, Normal S1, Normal S2, irregular rhythm, irregularly irregular. Absent: JVD - *Routine Abdominal Exam Present: soft, normoactive bowel sounds. Absent: distended, rebound - *Routine Extremities Exam Present: full ROM, pulses intact, normal capillary refill. Absent: edema - *Routine Skin Exam Present: intact, dry, warm - *Routine Neurological Exam Present: alert, oriented X3, CN II-XII intact, moving all extremities, normal speech - Routine Psychiatric Exam Present: normal affect, normal thought process Progress Note: A&P (1) Atrial fibrillation with rapid ventricular response Status: Acute (2) Hypertension Status: Acute (3) Obstructive sleep apnea Status: Acute (4) Hyperthyroidism Status: Acute Assessment and Plan for All Diagnoses:: Plan
[2020-12-31 14:01] LABS: Thyroid Peroxidase Antibodies 77 IU/mL (0-34); Triiodothyronine (T3) Free 9.9 pg/mL (2.0-4.4)
--- NOTE | 2020-12-31 17:40 | PC.NURSE ---
Late Entry: Sushma Anthony called for update on pt at 0850. notified Sushma Anthony of new orders to increase dilt drip to 10ml/hr. Orders adjusted at this time. new order for DIgoxin 250mcg and to get pt off the drip if able, do not increase to 10ml/hr. Notified sushma Anthony at 1451 that the pt hr has not been consistently below 100 and he is still on Diltiazem drip at 5ml. Per Sushma Anthony change metoprolol to 150mg po Bid, give an additional 50mg now. given 40mg lasix and 20meq potassium at this time. also given order to check BMP in the am.
--- NOTE | 2020-12-31 20:19 | PC.NURSE ---
Pt has had a good day today. was at bedside visiting. has remained in afib and hypertensive. lungs clear, pt was able to get a shower today and states he feels much better. nad noted. pt kept informed of all changes of medications when made by MD.
--- NOTE | 2020-12-31 21:00 | PC.NURSE ---
pt had no needs,restock gloves in room tech already did snacks. Sherman
[2021-01-01] VITALS (19 sets, daily range): BP systolic 120–163; BP diastolic 74–119; PULSE 70–153; RESP 12–22; TEMP 36.6–37.2; O2SAT 91–98; BMI 28.1
--- NOTE | 2021-01-01 04:33 | PC.NURSE ---
His pulse has fluctuated between 112-150s but did drop to 86 once. He denies SOA and dizziness.
--- NOTE | 2021-01-01 05:32 | PC.NURSE ---
pt has no needs. Ice water,trash,dirty linen and room straighten done by other tech angela.Sherman
[2021-01-01 06:25] LABS: Anion Gap 11.3 mEq/L (5-15); Blood Urea Nitrogen 26 mg/dl (9-20); Carbon Dioxide 25 mmol/L (22.0-30.0); Chloride 107 mmol/L (98-107); Creatinine Clearance Estimated 108 mL/min (50-200); Estimated Glomerular Filt Rate 87 ml/min (>60); GFR (African American) 105 ML/MIN (>60); Glucose 109 mg/dl (74-100); Potassium 4.3 mmoL/L (3.5-5.1); Sodium 139 mmol/L (136-145)
--- NOTE | 2021-01-01 07:55 | PC.NURSE ---
Dr. Kumar rounded and ordered to restart Dilt gtt secondary to uncontrolled Afib 150s. Medication started @ 0805. Per gtt protocol, gave initial bolus of 0.25mg/kg IV over 2min (84kg x 0.25 = 21mg/21mL over 2min). After initial bolus, gtt started @ 10mg/hr. Uncontrolled Afib 120s continues after bolus and initiation of cont rate. BP 141/89 @ 0815 after gtt started.
--- NOTE | 2021-01-01 08:26 | P.PN_ITS ---
Internal Medicine - PN: Subj *Date: 01/01/21 *Time: 08:26 Interval history: Patient complains of some dyspnea. Patient's Cardizem drip was turned off yesterday evening. Since that time heart rates have been between 130 and 160 Exam Vital signs and Labs for Last 24 Hours: Temp Pulse Resp BP Pulse Ox 97.8 F 150 H 16 156/98 H 94 L 01/01/21 07:51 01/01/21 08:00 01/01/21 03:59 01/01/21 07:00 01/01/21 07:00 Laboratory Results - last 24 hr 12/30/20 04:15: Free T3 9.9 H, Thyroid Peroxidase Ab 77 H 01/01/21 05:20: Sodium 139, Potassium 4.3, Chloride 107, Carbon Dioxide 25 D, Anion Gap 11.3, BUN 26 H D, Creatinine 0.90, Estimated Creat Clear 108, Estimated GFR 87, Est GFR ( Amer) 105, Glucose 109 H, Calcium 9.0 I & O for Last 24 hours: Intake & Output 12/29/20 12/30/20 12/31/20 01/01/21 11:59 11:59 11:59 11:59 Intake Total 326 / 326 809 / 809 620 / 620 Output Total 1480 / 1480 2049 / 0 1705 / 1705 Balance -1154 / -1154 -1241 / -1241 -1085 / -1085 Weight 185 lb 8 oz 187 lb 7 oz 185 lb 9 oz Microbiology Reports for the Last 24 Hours: Microbiology 12/29/20 22:25 Blood Blood Culture - Preliminary NO GROWTH AFTER 48 HOURS 12/29/20 22:25 Blood Blood Culture - Preliminary NO GROWTH AFTER 48 HOURS - Constitutional no acute distress - *Routine Respiratory Exam Comments: Diminished breath sounds right base - *Routine Cardiovascular Exam Present: tachycardia, irregularly irregular Assessment and Plan (1) Atrial fibrillation with rapid ventricular response Status: Acute Category: Medical Code(s): I48.91 - Unspecified atrial fibrillation (2) Hypertension Status: Acute Qualifiers: Hypertension type: unspecified Qualified Code(s): I10 - Essential (primary) hypertension Category: Medical Code(s): I10 - Essential (primary) hypertension (3) Obstructive sleep apnea Status: Acute Category: Medical Code(s): G47.33 - Obstructive sleep apnea (a dult) (pediatric) (4) Hyperthyroidism Status: Acute Category: Medical Code(s): E05.90 - Thyrotoxicosis, unspecified without thyrotoxic crisis or storm - Assessment and plan all Dx Assessment and Plan for all problems:: 1. Restart Cardizem drip. Continue digoxin and metoprolol 2. Increase propylthiouracil to 150 every 8 hours
--- NOTE | 2021-01-01 09:42 | PC.NURSE ---
Per Dr. Kumar' note, Digoxin and Metoprolol given this morning. Cardizem gtt continues @ 10mg/hr. Uncontrolled Afib persists with rate 75-115. Occasional PVCs noted on tele.
[2021-01-02] VITALS (14 sets, daily range): BP systolic 107–155; BP diastolic 77–97; PULSE 80–120; RESP 16–20; TEMP 37.2; O2SAT 92–97; BMI 28.0
--- NOTE | 2021-01-02 00:52 | PC.NURSE ---
He reports that he feels better tonight. Denies SOA and dizziness. He ambulated to the BR and tolerated well. Controlled afib on telemetry with pulse ranging from 70s-90s. Cardizem has remained at 10mg/hr. His only compliant tonight has been nasal congestion.
[2021-01-02 06:26] LABS: Basophils # 0.1 K/mm3 (0-0.2); Basophils % 0.4 % (0.1-2.0); Eosinophils # 0.3 K/mm3 (0.0-0.4); Eosinophils % 2.2 % (0.1-12.0); Hematocrit 47.4 % (42.0-52.0); Lymphocytes # 3.4 K/mm3 (0.7-4.5); Lymphocytes % 22.7 % (10-50); Mean Corpuscular HGB Conc 31.6 g/dL (31.8-35.4); Mean Corpuscular Hemoglobin 23.7 pg (27.0-31.2); Mean Corpuscular Volume 74.8 fl (80-94); Mean Platelet Volume 7.1 fl (7.4-10.4); Monocytes # 1.2 K/mm3 (0.1-1.0); Monocytes % 8.1 % (1.7-9.3); Neutrophils # 9.8 K/mm3 (1.8-7.8); Neutrophils % 66.6 % (37.0-80.0); Platelet Count 257 K/mm3 (142-424); Red Blood Count 6.33 M/mm3 (4.60-6.20); Red Cell Distribution Width 14.7 % (11.5-17.5); White Blood Count 14.8 K/mm3 (4.8-10.8)
[2021-01-02 06:33] LABS: Chloride 106 mmol/L (98-107); Sodium 137 mmol/L (136-145)
[2021-01-02 06:34] LABS: Potassium 3.8 mmoL/L (3.5-5.1)
[2021-01-02 06:37] LABS: Anion Gap 9.8 mEq/L (5-15); Blood Urea Nitrogen 21 mg/dl (9-20); Carbon Dioxide 25 mmol/L (22.0-30.0); Creatinine Clearance Estimated 108 mL/min (50-200); Estimated Glomerular Filt Rate 87 ml/min (>60); GFR (African American) 105 ML/MIN (>60); Glucose 103 mg/dl (74-100)
--- NOTE | 2021-01-02 08:01 | HMH.ACPN2 ---
Internal Medicine - PN: Subj *Date: 01/02/21 *Time: 08:01 Interval history: No acute events over the last 24 hours. After restarting Cardizem drip patient's pulse rate came down to the 90s when he is stationary. Only complaint from patient over the last 24 hours is nasal congestion successfully treated with Flonase Exam Vital signs and Labs for Last 24 Hours: Temp Pulse Resp BP Pulse Ox 98.9 F 115 H 16 122/88 93 L 01/02/21 07:56 01/02/21 08:00 01/01/21 20:00 01/02/21 06:00 01/02/21 06:00 Laboratory Results - last 24 hr 01/02/21 05:25: WBC 14.8 H, RBC 6.33 H, Hgb 15.0, Hct 47.4, MCV 74.8 L, MCH 23.7 L, MCHC 31.6 L, RDW 14.7, Plt Count 257, MPV 7.1 L, Neut % (Auto) 66.6, Lymph % (Auto) 22.7, [place] % (Auto) 8.1, Eos % (Auto) 2.2, Baso % (Auto) 0.4, Neut # (Auto) 9.8 H, Lymph # (Auto) 3.4, [place] # (Auto) 1.2 H, Eos # (Auto) 0.3, Baso # (Auto) 0.1 01/02/21 05:25: Sodium 137, Potassium 3.8, Chloride 106, Carbon Dioxide 25, Anion Gap 9.8, BUN 21 H, Creatinine 0.90, Estimated Creat Clear 108, Estimated GFR 87, Est GFR ( Amer) 105, Glucose 103 H, Calcium 9.0 I & O for Last 24 hours: Intake & Output 12/30/20 12/31/20 01/01/21 01/02/21 11:59 11:59 11:59 11:59 Intake Total 326 / 326 809 / 809 860 / 860 1318 / 1318 Output Total 1480 / 1480 2049 / 2049 2305 / 2305 2380 / 2380 Balance -1154 / -1154 -1241 / -1241 -1445 / -1445 -1062 / -1062 Weight 185 lb 8 oz 187 lb 7 oz 185 lb 9 oz 185 lb 8.656 oz - Constitutional no acute distress - *Routine Neck Exam Comments: Nontender thyroid - *Routine Respiratory Exam Comments: Overall clear with diminished breath sounds right base consistent with small pleural effusion - *Routine Cardiovascular Exam Present: tachycardia, irregularly irregular - *Routine Abdominal Exam Present: soft - *Routine Extremities Exam Absent: edema Assessment and Plan (1) Atrial fibrillation with rapid ventricular response Status: Acute Category: Medical Code(s): I48.91 - Unspecified atrial fibrillation (2) Hypertension Status: Acute Qualifiers: Hypertension type: unspecified Qualified Code(s): I10 - Essential (primary) hypertension Category: Medical Code(s): I10 - Essential (primary) hypertension (3) Obstructive sleep apnea Status: Acute Category: Medical Code(s): G47.33 - Obstructive sleep apnea (adult) (pediatric) (4) Hyperthyroidism Status: Acute Category: Medical Code(s): E05.90 - Thyrotoxicosis, unspecified without thyrotoxic crisis or storm - Assessment and plan all Dx Assessment and Plan for all problems:: 1. Continue digoxin, metoprolol, and I will transition the patient to oral Cardizem in an attempt for better heart rate control. 2. For patient's hyperthyroidism will increase propylthiouracil to 150 mg every 8 hours. Repeat TSH tomorrow. Thyroid receptor antibody is still pending
[2021-01-02 08:23] LABS: Magnesium 2.3 mg/dl (1.6-2.3)
--- NOTE | 2021-01-02 09:00 | PC.NURSE ---
Diltiazem 60mg po given @ 0900.
--- NOTE | 2021-01-02 09:30 | PC.NURSE ---
Diltiazem gtt decreased to 5mg/hr. Uncontrolled Afib continues @ 70-110.
--- NOTE | 2021-01-02 10:00 | PC.NURSE ---
Diltiazem gtt turned OFF @ 1000. Uncontrolled Afib continues @ 70-110.
[2021-01-03] VITALS (9 sets, daily range): BP systolic 105–151; BP diastolic 66–97; PULSE 65–130; RESP 14–20; TEMP 36.4–36.8; O2SAT 92–98; BMI 28.0
--- NOTE | 2021-01-03 05:47 | PC.NURSE ---
His pulse was 120s-130s upon shift change. Approximately 1.5 hours after med administration his rate became controlled. No complaints tonight.
[2021-01-03 06:29] LABS: Basophils % 0.3 % (0.1-2.0); Eosinophils # 0.2 K/mm3 (0.0-0.4); Eosinophils % 1.8 % (0.1-12.0); Hemoglobin 14.9 g/dL (14.1-18.0); Lymphocytes % 23.9 % (10-50); Mean Corpuscular HGB Conc 31.8 g/dL (31.8-35.4); Mean Corpuscular Hemoglobin 23.9 pg (27.0-31.2); Mean Corpuscular Volume 75.3 fl (80-94); Mean Platelet Volume 8.2 fl (7.4-10.4); Monocytes # 0.9 K/mm3 (0.1-1.0); Monocytes % 7.4 % (1.7-9.3); Neutrophils # 8.3 K/mm3 (1.8-7.8); Neutrophils % 66.5 % (37.0-80.0); Platelet Count 271 K/mm3 (142-424); Red Blood Count 6.24 M/mm3 (4.60-6.20); Red Cell Distribution Width 14.9 % (11.5-17.5); White Blood Count 12.4 K/mm3 (4.8-10.8)
[2021-01-03 06:36] LABS: Anion Gap 11.3 mEq/L (5-15); Blood Urea Nitrogen 20 mg/dl (9-20); Calcium 8.8 mg/dl (8.4-10.2); Carbon Dioxide 24 mmol/L (22.0-30.0); Chloride 106 mmol/L (98-107); Creatinine Clearance Estimated 108 mL/min (50-200); Estimated Glomerular Filt Rate 87 ml/min (>60); GFR (African American) 105 ML/MIN (>60); Glucose 107 mg/dl (74-100); Potassium 4.3 mmoL/L (3.5-5.1); Sodium 137 mmol/L (136-145)
--- NOTE | 2021-01-03 07:02 | PC.NURSE ---
[facility]. He denied SOA. HR in 120s.
[2021-01-03 07:07] LABS: Thyroid Stimulating Hormone < 0.02 uIU/mL (0.465-4.68)
--- NOTE | 2021-01-03 07:19 | HMH.ACPN2 ---
Internal Medicine - PN: Subj *Date: 01/03/21 *Time: 07:19 Interval history: With transition off of the Cardizem drip to oral Cardizem in addition to the metoprolol and digoxin patient's pulse rate has remained between 70 and 120. It generally is in the 120s with ambulation. With ambulation in the hallway patient denies shortness of breath, chest pain, palpitations. Exam Vital signs and Labs for Last 24 Hours: Temp Pulse Resp BP Pulse Ox 97.6 F 106 H 16 146/68 H 94 L 01/03/21 04:00 01/03/21 06:00 01/03/21 04:00 01/03/21 06:00 01/03/21 06:00 Laboratory Results - last 24 hr 01/02/21 00:00: Magnesium 2.3 I & O for Last 24 hours: Intake & Output 12/31/20 01/01/21 01/02/21 01/03/21 11:59 11:59 11:59 11:59 Intake Total 809 / 809 860 / 860 1678 / 1678 423 / 423 Output Total 2049 / 2049 2305 / 2305 3030 / 3030 1055 / 1055 Balance -1241 / -1241 -1445 / -1445 -1352 / -1352 -632 / -632 Weight 187 lb 7 oz 185 lb 9 oz 185 lb 8.656 oz 185 lb 4 oz - Constitutional no acute distress - *Routine Respiratory Exam Present: CTA bilaterally - *Routine Cardiovascular Exam Present: tachycardia, irregular rhythm - *Routine Abdominal Exam Present: soft. Absent: tenderness Assessment and Plan (1) Atrial fibrillation with rapid ventricular response Status: Acute Category: Medical Code(s): I48.91 - Unspecified atrial fibrillation (2) Hypertension Status: Acute Qualifiers: Hypertension type: unspecified Qualified Code(s): I10 - Essential (primary) hypertension Category: Medical Code(s): I10 - Essential (primary) hypertension (3) Obstructive sleep apnea Status: Acute Category: Medical Code(s): G47.33 - Obstructive sleep apnea (adult) (pediatric) (4) Hyperthyroidism Status: Acute Category: Medical Code(s): E05.90 - Thyrotoxicosis, unspecified without thyrotoxic crisis or storm - Assessment and plan all Dx Assessment and Plan for all problems:: 1. Increase patient's beta-marko to 150 3 times daily 2. Continue to ambulate in hallways and monitor closely for bradycardia 3. Repeat TSH is pending
--- NOTE | 2021-01-03 15:40 | PC.NURSE ---
No acute changes noted this shift, remains afib per telemetry, rate 70-120, has ambulated in hallway, alert and oriented x4, perrla, supervisor graphite equal, HR irregular, lungs cta, on RA, abd soft and nontender, active bowel sounds in all quads, reports BM this morning, peripheral pulses 2+, no edema noted, voids per urinal w/o difficulty, vss, denies any cp or soa, will continue to monitor.
--- NOTE | 2021-01-03 17:16 | HMH.DCSUM ---
General - General Admission date:: 12/30/20 Discharge date: 01/03/21 HPI HPI: 55-year-old male with history of hypertension presented to the emergency department after 2 to 3 days of shortness of breath with activity. Patient admits that approximately 4 to 5 days prior to his visit to the ER he was out walking was able to walk the [place]. The following day he noticed significant lack of activity tolerance and became winded rather easily when ambulating. He denies having chest pain during any of these events. He does report 1 day prior to coming to the ER sensation as if his heart was beating rapidly. He denies diaphoresis. He denies cough, orthopnea, paroxysmal nocturnal dyspnea. He denies swelling in the feet. Patient's past medical history is significant for hypertension and obstructive sleep apnea. Patient was admitted and placed on a Cardizem drip with very little change in heart rate as patient remains in atrial fibrillation with pulse of 150s to 160s Hospital Course Hospital Course: Patient was admitted and placed on Cardizem drip with initial poor response. Patient's atrial fibrillation was primarily felt to be secondary to his hyperthyroid state. Patient was placed on oral metoprolol which was gradually titrated upward. At discharge patient was being placed on metoprolol 150 mg every 8 hours. Digoxin was added onto the patient's regimen at a dose of 0.125 mg daily. Patient was on a Cardizem drip for over 24 hours initially and this was discontinued on the afternoon of the . Subsequently patient's heart rate climbed back to the 150s and patient noticed a return of dyspnea. Patient was started on a Cardizem drip again on January 01 and this was continued for 24 hours and then patient was transitioned to oral immediate release Cardizem 60 mg 4 times per day. The combination of metoprolol, digoxin, Cardizem did bring the patient's heart rate down to a range of 70-110. With ambulation heart rate would climb to 120 but patient remained asymptomatic in regards to dyspnea. Once patient's heart rate was better controlled and he was asymptomatic he was discharged to home. Patient was found to be in a hyperthyroid state with depressed TSH and elevated free T4 and free T3. Patient did not had fevers and had mild leukocytosis which was likely due to to his hyperthyroid state. On further questioning there is a family history of Graves' disease and his mother had radioiodine ablation therapy for her Graves' disease. Thyroid receptor antibody and thyroperoxidase antibodies were ordered. At discharge thyroid peroxidase antibody was back and elevated at 77. Patient was started on propylthiouracil initially 50 mg every 8 hours and this was increased to 150 mg every 8 hours during his hospitalization. Patient will require close outpatient follow-up. He will begin with follow-up in my office in 48 hours for reassessment of symptoms. Patient has a home blood pressure and pulse monitor and has been advised to use these twice daily to assess his pulse rate. Patient should contact me if his pulse is below 60. Patient will require outpatient endocrinology referral for his hyperthyroidism as well. His thyroid receptor antibody test is still pending. On January 03 patient was discharged home in stable condition. He will follow-up in the office in 48 hours Objective Vital signs: Temp Pulse Resp BP Pulse Ox 97.9 F 65 14 145/80 H 98 01/03/21 16:00 01/03/21 16:00 01/03/21 16:00 01/03/21 16:00 01/03/21 16:00 no acute distress - *Routine Respiratory Exam Present: CTA bilaterally - *Routine Cardiovascular Exam Present: tachycardia, irregular rhythm Results Labs on day of discharge: Labs from last 24 hours 01/03/21 01/03/21 05:25 05:25 WBC 12.4 H RBC 6.24 H Hgb 14.9 Hct 47.0 MCV 75.3 L MCH 23.9 L MCHC 31.8 RDW 14.9 Plt Count 271 MPV 8.2 Neut % (Aut
[2021-01-12 10:45] LABS: Thyroid Stimulating Immunoglob 3.55
== END 2021-01-03 18:01 | disposition home or self-care (01) | DRG 310 ==
LOC: ER 22:32 → 2ND 12-30 10:28
PROVIDERS: Physician Assistant; Admitting Provider Emergency Medicine; Emergency Provider Emergency Medicine; PCP Family Medicine; Visit Provider Family Medicine
DX: I48.91 Unspecified atrial fibrillation (principal); I48.92 Unspecified atrial flutter; Z91.018 Allergy to other foods; I10 Essential (primary) hypertension; Z82.49 Family history of ischemic heart disease and other diseases of the circulatory system; E05.90 Thyrotoxicosis, unspecified without thyrotoxic crisis or storm; G47.33 Obstructive sleep apnea (adult) (pediatric); Z79.899 Other long term (current) drug therapy
CPT/HCPCS: 36415; 71045; 71275; 76536; 80048; 80053; 80061; 83605; 83735; 83880; 84145; 84439; 84443; 84445; 84481; 84484; 85007; 85025; 85651; 86140; 86376; 87040; 93005; 93306; 96365; 96366; 99284; Q9967; U0003

== ENCOUNTER → 2021-01-12 10:50 | Outpatient (CLI) | payer BC, SELFPAY ==
[2021-01-12 12:34] LABS: Free T4 (Free Thyroxine) 2.76 ng/dl (0.78-2.19)
[2021-01-13 14:04] LABS: Triiodothyronine (T3) Free 5.1 pg/mL (2.0-4.4)
== END ==
PROVIDERS: Visit Provider Family Medicine
DX: E05.00 Thyrotoxicosis with diffuse goiter without thyrotoxic crisis or storm (principal)
CPT/HCPCS: 36415; 84439; 84481

== ENCOUNTER 2021-01-24 19:25 | Emergency (ER) | payer BC, SELFPAY ==
[2021-01-24 20:09] VITALS: BP 127/110; PULSE 86; RESP 18; TEMP 36.6; O2SAT 94
[2021-01-24 20:11] VITALS: BP 157/110; PULSE 91; RESP 18; TEMP 36.6; O2SAT 96; BMI 27.2
--- NOTE | 2021-01-24 20:34 | XR_ITS ---
PROCEDURE: XR CHEST 2V CLINICAL HISTORY: palpatations COMPARISON: CR XR CHEST 2V from 02/06/2020 CR XR CHEST PORTABLE from 12/29/[address] ANGIO CHEST from 12/30/2020 FINDINGS: Mild cardiomegaly without failure. There are small bilateral pleural effusions. No lobar consolidation or collapse. No acute bony findings. IMPRESSION: Cardiomegaly with small bilateral pleural effusions. Dictated by: Fortunato Aranda MD 01/25/2021 05:31 Fortunato Aranda MD in [facility] 01/25/2021 05:31
--- NOTE | 2021-01-24 20:47 | ECG_ITS ---
APPROVED REPORT Exam: Resting ECG HR:146 bpm ECG Measurements Heart Rate 146 AXES QRSd 90 QRS 99 QT 298 T -41 QTc 464 Conclusion Atrial fibrillation with rapid ventricular response with premature ventricular or aberrantly conducted complexes Rightward axis Septal infarct, age undetermined ST & T wave abnormality, consider inferior ischemia or digitalis effect Abnormal ECG Electronically signed by : Christophe Mary, 01/26/2021 17:36:32
[2021-01-24 20:53] LABS: Basophils % 0.4 % (0.1-2.0); Eosinophils # 0.4 K/mm3 (0.0-0.4); Eosinophils % 3.3 % (0.1-12.0); Hemoglobin 16.1 g/dL (14.1-18.0); Lymphocytes # 2.6 K/mm3 (0.7-4.5); Lymphocytes % 23.1 % (10-50); Mean Corpuscular HGB Conc 31.6 g/dL (31.8-35.4); Mean Corpuscular Hemoglobin 23.8 pg (27.0-31.2); Mean Corpuscular Volume 75.3 fl (80-94); Mean Platelet Volume 7.5 fl (7.4-10.4); Monocytes # 0.6 K/mm3 (0.1-1.0); Monocytes % 5.7 % (1.7-9.3); Neutrophils # 7.5 K/mm3 (1.8-7.8); Neutrophils % 67.5 % (37.0-80.0); Platelet Count 302 K/mm3 (142-424); Red Blood Count 6.77 M/mm3 (4.60-6.20); Red Cell Distribution Width 15.4 % (11.5-17.5); White Blood Count 11.1 K/mm3 (4.8-10.8)
[2021-01-24 20:56] LABS: Chloride 105 mmol/L (98-107); Sodium 139 mmol/L (136-145)
[2021-01-24 20:59] LABS: Alanine Aminotransferase 28 U/L (12-78); Albumin Level 4.4 g/dl (3.5-5.0); Albumin/Globulin Ratio 1.6 (1.1-1.8); Alkaline Phosphatase 89 U/L (38-126); Aspartate Amino Transferase 23 U/L (17-59); Bilirubin,Total 0.7 mg/dl (0.2-1.3); Blood Urea Nitrogen 14 mg/dl (9-20); Calcium 9.7 mg/dl (8.4-10.2); Carbon Dioxide 26 mmol/L (22.0-30.0); Creatinine Clearance Estimated 107 mL/min (50-200); Estimated Glomerular Filt Rate 87 ml/min (>60); GFR (African American) 105 ML/MIN (>60); Globulin 2.8 g/dL (1.3-3.2); Glucose 108 mg/dl (74-100); Total Protein,Serum 7.2 g/dl (6.3-8.2)
[2021-01-24 21:05] LABS: C-Reactive Protein 7.6 mg/L (0-4)
--- NOTE | 2021-01-24 21:11 | HMH.EDARPALP ---
ED Disposition Clinical Impression: Atrial fibrillation with rapid ventricular response, Hyperthyroidism Disposition: Home, Self-Care Condition on Discharge: Good Instructions: DI for Atrial Fibrillation Additional Instructions: call pcp in am Referrals: Christophe Kumar MD [Primary Care Provider] - - Critical Care Critical Care Time: No Attestation: On 01/24/21, the high probability of a clinically significant, sudden or life threatening deterioration of the following system(s) required my full and direct attention, intervention and personal management. The time I documented below is in addition to time spent performing reported procedures but includes the following listed in this critical care notation. Medical Decision Making - Medical Records Medical records reviewed: Yes: I reviewed the patient's medical records. - Max Inquiry Pt receiving controlled substance: No Vital Signs: 01/24/21 20:09 01/24/21 20:11 01/24/21 21:30 Temperature 97.8 F 97.8 F Temperature Source Oral Oral Pulse Rate 86 173 H Pulse Rate [Apical] 91 H Respiratory Rate 18 18 16 Blood Pressure 127/110 H 174/118 H Blood Pressure [Right Arm] 157/110 H Blood Pressure Mean [Right Arm] 125 Blood Pressure Source Automatic Cuff Automatic Cuff Blood Pressure Source [Right Arm] Automatic Cuff Blood Pressure Position Sitting Blood Pressure Position [Right Arm] Sitting 02 Sat by Pulse Oximetry 94 L 96 95 Oxygen Delivery Method Room Air Room Air Room Air - Lab Data Lab results reviewed: Yes: I reviewed the patient's lab results. Lab Results 01/24/21 20:40: TSH < 0.02 L, Thyroxine (T4) 18.9 H 01/24/21 20:40: Digoxin 0.40 01/24/21 20:41: WBC 11.1 H, RBC 6.77 H, Hgb 16.1, Hct 51.0, MCV 75.3 L, MCH 23.8 L, MCHC 31.6 L, RDW 15.4, Plt Count 302, MPV 7.5, Neut % (Auto) 67.5, Lymph % (Auto) 23.1, Rich % (Auto) 5.7, Eos % (Auto) 3.3, Baso % (Auto) 0.4, Neut # (Auto) 7.5, Lymph # (Auto) 2.6, Rich # (Auto) 0.6, Eos # (Auto) 0.4, Baso # (Auto) 0.0 01/24/21 20:41: Sodium 139, Potassium 4.0, Chloride 105, Carbon Dioxide 26, Anion Gap 12.0, BUN 14, Creatinine 0.90, Estimated Creat Clear 107, Estimated GFR 87, Est GFR ( Amer) 105, Glucose 108 H, Calcium 9.7, Total Bilirubin 0.7, AST 23, ALT 28, Alkaline Phosphatase 89, Troponin I < 0.01, C-Reactive Protein 7.6 H, Total Protein 7.2, Albumin 4.4, Globulin 2.8, Albumin/Globulin Ratio 1.6 01/24/21 20:41: ESR 1 01/24/21 20:41: Procalcitonin 0.049 Result diagrams: 01/24/21 20:41 01/24/21 20:41 Orders (Tests/Meds): ED MEDICATIONS Generic Name Dose Route Start Last Admin Trade Name Freq PRN Reason Stop Dose Admin Sodium Chloride 500 mls @ 999 mls/hr 01/24/21 21:45 01/24/21 21:46 Sod Chlor 0.9% 1000ml Bag IV 01/24/21 22:15 999 mls/hr .Q31M KARLIE Administration Discontinued Medications Generic Name Dose Route Start Last Admin Trade Name Freq PRN Reason Stop Dose Admin Diltiazem HCl 10 mg 01/24/21 21:28 01/24/21 21:43 Diltiazem 25mg/5ml Vial IV 01/24/21 21:29 10 mg ONCE ONE Administration Lorazepam 0.5 mg 01/24/21 21:27 01/24/21 21:42 Lorazepam 0.5mg Tablet PO 01/24/21 21:28 0.5 mg ONCE ONE Administration Metoprolol Tartrate 2.5 mg 01/24/21 22:02 01/24/21 22:04 Metoprolol Tartrate 5mg/5ml Vial IV 01/24/21 22:03 2.5 mg ONCE ONE Administration ORDERS Category Date Time Status CXR 2 view (NOT portable) [XR chest 2V] Stat Exams 01/24/21 20:34 Taken Troponin I Q3H Lab 01/24/21 23:45 Ordered Troponin I Q3H Lab 01/25/21 02:45 Ordered - Radiology Data #1 Image(s): Chest Image Reviewed: Yes I reviewed the patient's radiology image Preliminary Findings: Normal/NAD - ECG Data Tracing #1 Arrhythmias present: afib Ischemic changes: non-specific ST-T wave changes - Physician Consults Physician Consulted: nella Reason -: Pt condition - Reevaluation(s) Time: 22:20 Reevaluation #1: doing better -
[2021-01-24 21:17] LABS: Procalcitonin 0.049 ng/mL (0.0-2.0); Troponin I < 0.01 ng/ml (0.00-0.034)
[2021-01-24 21:28] LABS: Erythrocyte Sedimentation Rate 1 mm/hr (0-20)
[2021-01-24 21:30] VITALS: BP 174/118; PULSE 173; RESP 16; O2SAT 95
[2021-01-24 21:43] LABS: T4 (Thyroxine) 18.9 ug/dl (5.53-11.0)
[2021-01-24 21:56] LABS: Thyroid Stimulating Hormone < 0.02 uIU/mL (0.465-4.68)
[2021-01-24 23:11] VITALS: BP 162/102; PULSE 132; RESP 18; TEMP 36.6; O2SAT 95
== END 2021-01-24 23:15 | disposition home or self-care (01) ==
PROVIDERS: Emergency Medicine; Emergency Provider Emergency Medicine; PCP Family Medicine
DX: I48.20 Chronic atrial fibrillation, unspecified (principal); E05.90 Thyrotoxicosis, unspecified without thyrotoxic crisis or storm; I10 Essential (primary) hypertension; F41.9 Anxiety disorder, unspecified; Z79.899 Other long term (current) drug therapy
CPT/HCPCS: 71046; 80053; 80162; 84145; 84436; 84443; 84484; 85025; 85651; 86140; 93005; 96365; 96375; 99282

== ENCOUNTER → 2021-02-02 10:45 | Outpatient (CLI) | payer BC, SELFPAY ==
--- NOTE | 2021-02-02 10:52 | XR_ITS ---
PROCEDURE: XR CHEST 2V CLINICAL HISTORY: SOB COMPARISON: CR XR CHEST 2V from 02/06/2020 CR XR CHEST PORTABLE from 12/29/[address] ANGIO CHEST from 12/30/2020 CR XR CHEST 2V from 01/24/2021 FINDINGS: There is mild cardiomegaly without failure. There are small bilateral pleural effusions. Calcified granuloma is present in the left upper lobe. No acute bony abnormalities. IMPRESSION: Cardiomegaly with small bilateral pleural effusions Dictated by: Fortunato Aranda MD 02/02/2021 11:54 Fortunato Aranda MD in [facility] 02/02/2021 11:54
== END ==
PROVIDERS: PCP Family Medicine; Visit Provider Family Medicine
DX: R06.02 Shortness of breath (principal)
CPT/HCPCS: 71046

== ENCOUNTER 2021-02-03 12:24 | Emergency (ER) | payer BC, SELFPAY ==
[2021-02-03 12:24] VITALS: BP 137/110; PULSE 60; RESP 16; TEMP 36.8; O2SAT 99; BMI 28.3
--- NOTE | 2021-02-03 12:36 | XR_ITS ---
PROCEDURE: XR CHEST PORTABLE CLINICAL HISTORY: soa COMPARISON: CR XR CHEST PORTABLE from 12/29/[address] ANGIO CHEST from 12/30/2020 CR XR CHEST 2V from 01/24/2021 CR XR CHEST 2V from 02/02/2021 FINDINGS: Mild cardiomegaly without failure. Small bilateral pleural effusions. No lobar consolidation or collapse No acute bony abnormalities. IMPRESSION: Cardiomegaly with small bilateral pleural effusions overall not significantly changed Dictated by: Fortunato Aranda MD 02/03/2021 14:49 Fortunato Aranda MD in [facility] 02/03/2021 14:49
[2021-02-03 13:00] VITALS: BP 139/94; PULSE 70; O2SAT 98
[2021-02-03 13:04] LABS: Basophils # 0.1 K/mm3 (0-0.2); Basophils % 0.4 % (0.1-2.0); Eosinophils # 0.1 K/mm3 (0.0-0.4); Eosinophils % 1.4 % (0.1-12.0); Hematocrit 51.1 % (42.0-52.0); Lymphocytes # 2.1 K/mm3 (0.7-4.5); Lymphocytes % 20.3 % (10-50); Mean Corpuscular HGB Conc 31.4 g/dL (31.8-35.4); Mean Corpuscular Hemoglobin 24.4 pg (27.0-31.2); Mean Corpuscular Volume 77.8 fl (80-94); Mean Platelet Volume 7.9 fl (7.4-10.4); Monocytes # 0.6 K/mm3 (0.1-1.0); Monocytes % 5.8 % (1.7-9.3); Neutrophils # 7.4 K/mm3 (1.8-7.8); Neutrophils % 72.1 % (37.0-80.0); Platelet Count 225 K/mm3 (142-424); Red Blood Count 6.57 M/mm3 (4.60-6.20); Red Cell Distribution Width 16.1 % (11.5-17.5); White Blood Count 10.3 K/mm3 (4.8-10.8)
[2021-02-03 13:06] LABS: Chloride 105 mmol/L (98-107); Potassium 3.9 mmoL/L (3.5-5.1); Sodium 139 mmol/L (136-145)
--- NOTE | 2021-02-03 13:07 | HMH.EDGENADL ---
ED Disposition Clinical Impression: Bilateral pleural effusion, Acute pulmonary edema Disposition: Home, Self-Care Condition on Discharge: Good Additional Instructions: Follow-up with your primary care physician within the next few days. Take Lasix as instructed return for difficulty breathing chest pain or any other concerns Prescriptions: Furosemide [Lasix 20mg tab] 20 mg PO DAILY 5 Days #5 tab Transmission Status: Pending to [facility] [place] [address] Referrals: Christophe Kumar MD [Primary Care Provider] - - Critical Care Critical Care Time: No Attestation: On 02/03/21, the high probability of a clinically significant, sudden or life threatening deterioration of the following system(s) required my full and direct attention, intervention and personal management. The time I documented below is in addition to time spent performing reported procedures but includes the following listed in this critical care notation. Medical Decision Making - Medical Records Medical records reviewed: Yes: I reviewed the patient's medical records. - Max Inquiry Pt receiving controlled substance: No Vital Signs: 02/03/21 12:24 02/03/21 13:00 02/03/21 13:30 Temperature 98.3 F Temperature Source Oral Pulse Rate 70 75 Pulse Rate [Right] 60 Respiratory Rate 16 Blood Pressure 139/94 H 150/117 H Blood Pressure [Right Arm] 137/110 H Blood Pressure Mean 114 128 Blood Pressure Mean [Right Arm] 119 Blood Pressure Source [Right Arm] Automatic Cuff Blood Pressure Position [Right Arm] Sitting 02 Sat by Pulse Oximetry 99 98 98 Oxygen Delivery Method Room Air 02/03/21 14:06 Temperature Temperature Source Pulse Rate 52 L Pulse Rate [Right] Respiratory Rate 18 Blood Pressure 149/99 H Blood Pressure [Right Arm] Blood Pressure Mean 129 Blood Pressure Mean [Right Arm] Blood Pressure Source [Right Arm] Blood Pressure Position [Right Arm] 02 Sat by Pulse Oximetry 96 Oxygen Delivery Method - Lab Data Lab Results 02/03/21 12:36: VBG pH 7.35, VBG pCO2 43.1, VBG pO2 49.5 H, VBG HCO3 23.5, VBG Total CO2 24.8, VBG O2 Saturation 83.9 H, VBG Base Excess -2.1 02/03/21 12:44: WBC 10.3, RBC 6.57 H, Hgb 16.0, Hct 51.1, MCV 77.8 L, MCH 24.4 L, MCHC 31.4 L, RDW 16.1, Plt Count 225, MPV 7.9, Neut % (Auto) 72.1, Lymph % (Auto) 20.3, [place] % (Auto) 5.8, Eos % (Auto) 1.4, Baso % (Auto) 0.4, Neut # (Auto) 7.4, Lymph # (Auto) 2.1, [place] # (Auto) 0.6, Eos # (Auto) 0.1, Baso # (Auto) 0.1 02/03/21 12:44: D-Dimer 0.62 H 02/03/21 12:44: Sodium 139, Potassium 3.9, Chloride 105, Carbon Dioxide 25, Anion Gap 12.9, BUN 18, Creatinine 1.10, Estimated Creat Clear 88, Estimated GFR 69, Est GFR ( Amer) 83, Glucose 135 H, Calcium 9.1, Troponin I < 0.01, NT-Pro-B Natriuret Pep 6260 H, TSH < 0.02 L Result diagrams: 02/03/21 12:44 02/03/21 12:44 Orders (Tests/Meds): ED MEDICATIONS Discontinued Medications Generic Name Dose Route Start Last Admin Trade Name Freq PRN Reason Stop Dose Admin Furosemide 20 mg 02/03/21 13:56 02/03/21 14:21 Furosemide 20 Mg/2 Ml Vial IV 02/03/21 13:57 20 mg ONCE ONE Administration Iopamidol 70 ml 02/03/21 13:46 02/03/21 13:47 Iopamidol-370 (76%);100ml Bottle IV 02/03/21 13:47 70 ml ONCE ONE Administration Sodium Chloride 10 ml 02/03/21 13:46 02/03/21 13:47 Sodium Chloride 0.9% 10ml Syr (Rad Only) IV 02/03/21 13:47 10 ml ONCE ONE Administration Sodium Chloride 50 ml 02/03/21 13:46 02/03/21 13:47 0.9 % Sodium Chloride 50 Ml Vial IV 02/03/21 13:47 50 ml ONCE ONE Administration ORDERS Category Date Time Status Troponin I Q3H Lab 02/03/21 15:45 Ordered Troponin I Q3H Lab 02/03/21 18:45 Ordered Medical Decision Narrative: The patient in [id number] exam. On my exam he was in no acute distress nontoxic-appearing with saturations near 100%. History is consistent with torsional dyspnea. D-dimer was elevated 0.6, CTA obtained that show
[2021-02-03 13:09] LABS: Anion Gap 12.9 mEq/L (5-15); Blood Urea Nitrogen 18 mg/dl (9-20); Calcium 9.1 mg/dl (8.4-10.2); Carbon Dioxide 25 mmol/L (22.0-30.0); Creatinine Clearance Estimated 88 mL/min (50-200); Estimated Glomerular Filt Rate 69 ml/min (>60); GFR (African American) 83 ML/MIN (>60); Glucose 135 mg/dl (74-100)
[2021-02-03 13:15] LABS: D-Dimer 0.62 ug/mL (0.0-0.5)
--- NOTE | 2021-02-03 13:18 | CT_ITS ---
PROCEDURE: CT ANGIO CHEST CLINCIAL INDICATION: pulmonary embolism Shortness of air COMPARISON: CT CT ANGIO CHEST from 12/30/2020 TECHNIQUE: IV Contrast: 70ML Isovue 370 Axial images obtained with sagittal and coronal reformats. All CT scans at the facility use one or more dose reduction, viz: automated exposure control, ma/kV adjustment per patient size (including targeted exams where dose is matched to indication, i.e. head), or iterative reconstruction technique. FINDINGS: HEART AND MEDIASTINAL STRUCTURES: Thyroid gland is enlarged. No evidence of aortic aneurysm. No evidence of pulmonary embolus. There is mild haziness of the anterior mediastinal fat nonspecific and unchanged. Small amount fluid is present in the superior recess of the pericardium. Mild cardiomegaly. LUNGS AND PLEURAL SPACES: Small to medium-sized bilateral pleural effusions are present with atelectatic changes in the lung bases. BONY STRUCTURES: No acute bony abnormalities apparent. UPPER ABDOMEN: Unusual layering contrast is present within the inferior vena cava. The gallbladder wall appears thickened. ADDITIONAL FINDINGS: No other significant abnormalities. IMPRESSION: 1. No evidence of pulmonary embolus. 2. Medium-sized bilateral pleural effusions with bibasilar atelectatic changes. The right effusion is not significantly changed. The left effusion is slightly larger. Dictated by: Fortunato Aranda MD 02/03/2021 14:24 Fortunato Aranda MD in [facility] 02/03/2021 14:24
[2021-02-03 13:21] LABS: NT Pro Brain Natriuretic Pep. 6260 pg/mL (0-125)
[2021-02-03 13:28] LABS: Troponin I < 0.01 ng/ml (0.00-0.034)
[2021-02-03 13:30] VITALS: BP 150/117; PULSE 75; O2SAT 98
--- NOTE | 2021-02-03 13:38 | ECG_ITS ---
APPROVED REPORT Exam: Resting ECG HR:107 bpm ECG Measurements Heart Rate 107 AXES QRSd 98 QRS -20 QT 346 T 202 QTc 461 Conclusion Atrial fibrillation with rapid ventricular response with premature ventricular or aberrantly conducted complexes Possible Anterior infarct, age undetermined Abnormal ECG Electronically signed by : Christophe Mary, 02/04/2021 10:35:49
[2021-02-03 13:40] LABS: VBG Base Excess -2.1 mmol/L (-2.4-2.3); VBG HCO3 23.5 mmol/L (23-30); VBG Oxygen Saturation 83.9 % (50-70); VBG PCO2 43.1 mmol/L (35-51); VBG PH 7.35 mmol/L (7.31-7.41); VBG PO2 49.5 mmol/L (28-40); VBG Total CO2 24.8 mmol/L (23-27)
[2021-02-03 13:42] LABS: Thyroid Stimulating Hormone < 0.02 uIU/mL (0.465-4.68)
[2021-02-03 14:06] VITALS: BP 149/99; PULSE 52; RESP 18; O2SAT 96
[2021-02-03 15:17] VITALS: BP 132/70; PULSE 78; RESP 16; TEMP 36.8; O2SAT 98
== END 2021-02-03 15:19 | disposition home or self-care (01) ==
PROVIDERS: Emergency Provider Emergency Medicine; PCP Family Medicine
DX: J90 Pleural effusion, not elsewhere classified (principal); J81.0 Acute pulmonary edema; I10 Essential (primary) hypertension; Z79.899 Other long term (current) drug therapy
CPT/HCPCS: 71045; 71275; 80048; 82803; 83880; 84443; 84484; 85025; 85378; 93005; 96374; 99282; Q9967

== ENCOUNTER → 2021-02-09 09:14 | Outpatient (CLI) | payer BC, SELFPAY ==
[2021-02-09 10:43] LABS: Blood Urea Nitrogen 21 mg/dl (9-20); Calcium 9.4 mg/dl (8.4-10.2); Carbon Dioxide 25 mmol/L (22.0-30.0); Chloride 107 mmol/L (98-107); Estimated Glomerular Filt Rate 77 ml/min (>60); GFR (African American) 93 ML/MIN (>60); Glucose 122 mg/dl (74-100); Sodium 137 mmol/L (136-145)
[2021-02-09 11:01] LABS: Free T4 (Free Thyroxine) 2.07 ng/dl (0.78-2.19)
[2021-02-09 11:16] LABS: Thyroid Stimulating Hormone < 0.02 uIU/mL (0.465-4.68)
== END ==
PROVIDERS: Visit Provider Family Medicine
DX: E05.90 Thyrotoxicosis, unspecified without thyrotoxic crisis or storm (principal); I10 Essential (primary) hypertension
CPT/HCPCS: 36415; 80048; 84439; 84443; 84481

== ENCOUNTER 2021-02-27 23:03 | Emergency (ER) | payer BC, SELFPAY ==
[2021-02-27 23:04] VITALS: BMI 28.4
--- NOTE | 2021-02-27 23:16 | ECG_ITS ---
APPROVED REPORT Exam: Resting ECG HR:117 bpm ECG Measurements Heart Rate 117 AXES QRSd 94 QRS -6 QT 314 T 249 QTc 438 Conclusion Atrial fibrillation with rapid ventricular response STTW changes are old Old Rwave progression delay Abnormal ECG Electronically signed by : Christophe Mary, 03/05/2021 07:40:15
[2021-02-27 23:19] VITALS: BP 151/110; PULSE 113; RESP 18; TEMP 36.9; O2SAT 98; BMI 28.4
[2021-02-27 23:25] LABS: Basophils # 0.1 K/mm3 (0-0.2); Basophils % 0.7 % (0.1-2.0); Eosinophils # 0.4 K/mm3 (0.0-0.4); Eosinophils % 3.2 % (0.1-12.0); Hematocrit 49.8 % (42.0-52.0); Hemoglobin 15.9 g/dL (14.1-18.0); Lymphocytes # 2.5 K/mm3 (0.7-4.5); Lymphocytes % 21.4 % (10-50); Mean Corpuscular HGB Conc 31.9 g/dL (31.8-35.4); Mean Corpuscular Hemoglobin 24.8 pg (27.0-31.2); Mean Corpuscular Volume 77.9 fl (80-94); Mean Platelet Volume 8.1 fl (7.4-10.4); Monocytes # 0.7 K/mm3 (0.1-1.0); Monocytes % 5.7 % (1.7-9.3); Neutrophils # 7.9 K/mm3 (1.8-7.8); Platelet Count 203 K/mm3 (142-424); Red Blood Count 6.39 M/mm3 (4.60-6.20); Red Cell Distribution Width 16.1 % (11.5-17.5); White Blood Count 11.4 K/mm3 (4.8-10.8)
[2021-02-27 23:29] VITALS: BP 151/110; PULSE 118; RESP 14; O2SAT 98
[2021-02-27 23:30] VITALS: BP 152/116; PULSE 112; RESP 17; O2SAT 98
[2021-02-27 23:33] LABS: Adenovirus,PCR Not Detected (NotDetected); Bordetella Pertussis Not Detected (NotDetected); Chlamydophila Pneumoniae, PCR Not Detected (NotDetected); Coronavirus 19, PCR Not Detected (NotDetected); Coronavirus 229E Not Detected (NotDetected); Coronavirus NL63 Not Detected (NotDetected); Coronavirus OC43 Not Detected (NotDetected); Coronovirus HKU1,PCR Not Detected (NotDetected); Human Metapneumovirus Not Detected (NotDetected); Influenza A, PCR Not Detected (NotDetected); Influenza AH1, 2009 Not Detected (NotDetected); Influenza AH1, PCR Not Detected (NotDetected); Influenza AH3,PCR Not Detected (NotDetected); Influenza B, PCR Not Detected (NotDetected); Mycoplasma Pneumoniae, PCR Not Detected (NotDetected); Parainfluenza 1, PCR Not Detected (NotDetected); Parainfluenza 2, PCR Not Detected (NotDetected); Parainfluenza 3, PCR Not Detected (NotDetected); Parainfluenza 4, PCR Not Detected (NotDetected); Respiratory Syncytial Virus Not Detected (NotDetected); Rhinovirus/Enterovirus Not Detected (NotDetected)
[2021-02-27 23:33] LABS: Alanine Aminotransferase 29 U/L (12-78); Alkaline Phosphatase 65 U/L (38-126); Aspartate Amino Transferase 27 U/L (17-59); Bilirubin,Direct 0.4 mg/dl (0.0-0.4); Bilirubin,Indirect 0.4 mg/dL (0.0-0.9); Bilirubin,Total 0.8 mg/dl (0.2-1.3); Bilirubin,Unconjugated 0.3 mg/dL (0.0-1.1); Blood Urea Nitrogen 23 mg/dl (9-20); Calcium 9.1 mg/dl (8.4-10.2); Carbon Dioxide 29 mmol/L (22.0-30.0); Chloride 106 mmol/L (98-107); Creatinine Clearance Estimated 81 mL/min (50-200); Estimated Glomerular Filt Rate 62 ml/min (>60); GFR (African American) 76 ML/MIN (>60); Glucose 111 mg/dl (74-100); Sodium 141 mmol/L (136-145); Total Protein,Serum 6.6 g/dl (6.3-8.2)
[2021-02-27 23:42] LABS: NT Pro Brain Natriuretic Pep. 6880 pg/mL (0-125)
[2021-02-27 23:45] VITALS: PULSE 81; RESP 17; O2SAT 96
[2021-02-27 23:47] LABS: Troponin I < 0.01 ng/ml (0.00-0.034)
[2021-02-27 23:55] LABS: C-Reactive Protein 4.1 mg/L (0-4)
--- NOTE | 2021-02-28 00:01 | XR_ITS ---
PROCEDURE INFORMATION: Exam: XR Chest Exam date and time: 02/28/21 12:01 AM Age: 55 years old Clinical indication: Shortness of breath; Patient HX: Near syncope, SOA, a fib TECHNIQUE: Imaging protocol: XR of the chest. Views: 2 views. COMPARISON: CR XR CHEST PORTABLE 02/03/21 12:45 PM FINDINGS: Lungs: Unremarkable. No consolidation. Pleural spaces: Unremarkable. No pleural effusion. No pneumothorax. Heart/Mediastinum: Unremarkable. No cardiomegaly. Bones/joints: Unremarkable. IMPRESSION: No acute findings.
--- NOTE | 2021-02-28 00:01 | CT_ITS ---
PROCEDURE INFORMATION: Exam: CT Head Without Contrast Exam date and time: 02/28/21 12:01 AM Age: 55 years old Clinical indication: Syncope and collapse; Patient HX: Near syncope, a fib, nonsmoker TECHNIQUE: Imaging protocol: Computed tomography of the head without contrast. Radiation optimization: All CT scans at this facility use at least one of these dose optimization techniques: automated exposure control; mA and/or kV adjustment per patient size (includes targeted exams where dose is matched to clinical indication); or iterative reconstruction. COMPARISON: No relevant prior studies available. FINDINGS: Brain: Normal. No hemorrhage. Unremarkable white matter. No mass effect. Cerebral ventricles: No ventriculomegaly. Bones/joints: Unremarkable. No acute fracture. Paranasal sinuses: Visualized sinuses are unremarkable. No fluid levels. Mastoid air cells: Visualized mastoid air cells are well aerated. Soft tissues: Unremarkable. IMPRESSION: No acute intracranial abnormality.
[2021-02-28 00:05] LABS: Thyroid Stimulating Hormone < 0.02 uIU/mL (0.465-4.68)
[2021-02-28 00:09] LABS: Procalcitonin 0.067 ng/mL (0.0-2.0)
[2021-02-28 00:10] VITALS: PULSE 86; O2SAT 99
[2021-02-28 00:11] LABS: Erythrocyte Sedimentation Rate 1 mm/hr (0-20)
[2021-02-28 00:15] VITALS: BP 160/114; PULSE 130; RESP 17; O2SAT 98
[2021-02-28 00:30] VITALS: BP 162/121; PULSE 82; RESP 14; O2SAT 95
--- NOTE | 2021-02-28 00:52 | HMH.EDCP ---
ED Disposition Clinical Impression: Atypical chest pain, Atrial fibrillation with rapid ventricular response, Hyperthyroidism Disposition: Home, Self-Care Condition on Discharge: Good Instructions: DI for Atypical Chest Pain Additional Instructions: see pcp this week Referrals: Christophe Kumar MD [Primary Care Provider] - - Critical Care Critical Care Time: No Attestation: On 02/27/21, the high probability of a clinically significant, sudden or life threatening deterioration of the following system(s) required my full and direct attention, intervention and personal management. The time I documented below is in addition to time spent performing reported procedures but includes the following listed in this critical care notation. Medical Decision Making - Medical Records Medical records reviewed: Yes: I reviewed the patient's medical records. - Max Inquiry Pt receiving controlled substance: No Vital Signs: 02/27/21 23:19 02/27/21 23:29 02/27/21 23:30 Temperature 98.4 F Temperature Source Oral Pulse Rate 118 H 112 H Pulse Rate [Right Brachial] 113 H Respiratory Rate 18 14 17 Blood Pressure 151/110 H 152/116 H Blood Pressure [rt arm] 151/110 H Blood Pressure Mean 117 125 Blood Pressure Mean [rt arm] 123 Blood Pressure Source Blood Pressure Source [rt arm] Automatic Cuff Blood Pressure Position [rt arm] Sitting 02 Sat by Pulse Oximetry 98 98 98 Oxygen Delivery Method Room Air 02/27/21 23:45 02/28/21 00:10 02/28/21 00:15 Temperature Temperature Source Pulse Rate 81 86 130 H Pulse Rate [Right Brachial] Respiratory Rate 17 17 Blood Pressure 160/114 H Blood Pressure [rt arm] Blood Pressure Mean Blood Pressure Mean [rt arm] Blood Pressure Source Manual Cuff/ Auscultation Blood Pressure Source [rt arm] Blood Pressure Position [rt arm] 02 Sat by Pulse Oximetry 96 99 98 Oxygen Delivery Method 02/28/21 00:30 02/28/21 01:00 Temperature Temperature Source Pulse Rate 82 Pulse Rate [Right Brachial] Respiratory Rate 14 Blood Pressure 162/121 H 154/110 H Blood Pressure [rt arm] Blood Pressure Mean 124 Blood Pressure Mean [rt arm] Blood Pressure Source Blood Pressure Source [rt arm] Blood Pressure Position [rt arm] 02 Sat by Pulse Oximetry 95 Oxygen Delivery Method - Lab Data Lab results reviewed: Yes: I reviewed the patient's lab results. Lab Results 02/27/21 23:18: WBC 11.4 H, RBC 6.39 H, Hgb 15.9, Hct 49.8, MCV 77.9 L, MCH 24.8 L, MCHC 31.9, RDW 16.1, Plt Count 203, MPV 8.1, Neut % (Auto) 69.0, Lymph % (Auto) 21.4, [place] % (Auto) 5.7, Eos % (Auto) 3.2, Baso % (Auto) 0.7, Neut # (Auto) 7.9 H, Lymph # (Auto) 2.5, [place] # (Auto) 0.7, Eos # (Auto) 0.4, Baso # (Auto) 0.1 02/27/21 23:18: Sodium 141, Potassium 4.0, Chloride 106, Carbon Dioxide 29, Anion Gap 10.0, BUN 23 H, Creatinine 1.20, Estimated Creat Clear 81, Estimated GFR 62, Est GFR ( Amer) 76, Glucose 111 H, Calcium 9.1, Total Bilirubin 0.8, Direct Bilirubin 0.4, Conjugated Bilirubin 0.0, Indirect Bilirubin 0.4, Unconjugated Bilirubin 0.3, AST 27, ALT 29, Alkaline Phosphatase 65, Troponin I < 0.01, Total Protein 6.6, Albumin 4.0, TSH < 0.02 L, Thyroxine (T4) 10.0 02/27/21 23:18: NT-Pro-B Natriuret Pep 6880 H 02/27/21 23:18: ESR 1 02/27/21 23:18: C-Reactive Protein 4.1 H, Procalcitonin 0.067 Result diagrams: 02/27/21 23:18 02/27/21 23:18 Orders (Tests/Meds): ED MEDICATIONS Generic Name Dose Route Start Last Admin Trade Name Freq PRN Reason Stop Dose Admin Sodium Chloride 1,000 mls @ 999 mls/hr 02/27/21 23:30 02/27/21 23:24 Sod Chlor 0.9% 1000ml Bag IV 02/28/21 00:30 999 mls/hr .Q1H1M KARLIE Administration ORDERS Category Date Time Status Digoxin Stat Lab 02/28/21 00:00 Received Full Resp Panel w/COVID ([facility]) Routine Lab 02/27/21 23:25 Received Troponin I Q3H Lab 02/28/21 02:30 Ordered Troponin I Q3H Lab 02/28/21 05:30 Ordered
[2021-02-28 01:00] VITALS: BP 154/110
--- NOTE | 2021-02-28 01:10 | PC.NURSE ---
Dr. Serrano s/w Dr. Kumar
[2021-02-28 01:14] VITALS: BP 154/100; PULSE 107; RESP 18; TEMP 36.6; O2SAT 95
== END 2021-02-28 01:31 | disposition home or self-care (01) ==
PROVIDERS: Emergency Provider Emergency Medicine; PCP Family Medicine
DX: R07.89 Other chest pain (principal); I48.91 Unspecified atrial fibrillation; E05.90 Thyrotoxicosis, unspecified without thyrotoxic crisis or storm; I10 Essential (primary) hypertension; Z79.899 Other long term (current) drug therapy
CPT/HCPCS: 70450; 71046; 80048; 80076; 80162; 83880; 84145; 84436; 84443; 84484; 85025; 85651; 86140; 87581; 87633; 87798; 93005; 96365; 99283

== ENCOUNTER → 2021-03-03 11:50 | Outpatient (CLI) | payer BC, SELFPAY | PROVIDERS: PCP Family Medicine; Visit Provider Family Medicine | DX: G47.30 Sleep apnea, unspecified (principal); R40.0 Somnolence | CPT/HCPCS: G0399 ==

== ENCOUNTER 2021-03-07 01:48 | Inpatient (IN) | payer BC, SELFPAY ==
[2021-03-07] VITALS (41 sets, daily range): BP systolic 101–175; BP diastolic 62–113; PULSE 68–147; RESP 16–40; TEMP 36.2–36.6; O2SAT 91–97; BMI 31.4; BMI 28.0
--- NOTE | 2021-03-07 01:48 | ECG_ITS ---
APPROVED REPORT Exam: Resting ECG HR:152 bpm ECG Measurements Heart Rate 152 AXES QRSd 86 QRS 96 QT 276 T -28 QTc 438 Conclusion Atrial fibrillation with rapid ventricular response Rightward axis Septal infarct, age undetermined ST & T wave abnormality, consider inferolateral ischemia or digitalis effect Abnormal ECG Electronically signed by : Christophe Mary, 03/07/2021 07:09:12
--- NOTE | 2021-03-07 01:54 | XR_ITS ---
PROCEDURE INFORMATION: Exam: XR Chest Exam date and time: 03/07/2021 1:54 AM Age: 55 years old Clinical indication: Shortness of breath; Patient HX: SOA; Additional info: Dyspnea TECHNIQUE: Imaging protocol: XR of the chest. Views: 1 view. COMPARISON: CR XR CHEST 2V 02/27/2021 11:52 PM FINDINGS: Tubes, catheters and devices: Leads overlying chest. Lungs: Mild underinflation. Perihilar interstitial and alveolar opacities. Pleural spaces: Probable small bilateral pleural effusions. No pneumothorax. Heart/Mediastinum: Mild cardiomegaly. Prominence of central pulmonary vasculature. Bones/joints: No displaced fracture. Soft tissues: Unremarkable. IMPRESSION: Findings compatible with mild pulmonary edema. Clinical correlation is needed.
--- NOTE | 2021-03-07 02:26 | HMH.EDSOB ---
ED Disposition Clinical Impression: Acute respiratory acidosis Acute respiratory failure Qualifiers: Respiratory failure complication: hypercapnia Qualified Code(s): J96.02 - Acute respiratory failure with hypercapnia CHF exacerbation Qualifiers: Heart failure type: diastolic Qualified Code(s): I50.33 - Acute on chronic diastolic (congestive) heart failure Sepsis Qualifiers: Sepsis acute organ dysfunction status: with acute organ dysfunction Disposition: Admitted As Inpatient Condition on Discharge: Serious Time of Disposition: 03:42 - Critical Care Critical Care Time: Yes Attestation: On 03/07/21, the high probability of a clinically significant, sudden or life threatening deterioration of the following system(s) required my full and direct attention, intervention and personal management. The time I documented below is in addition to time spent performing reported procedures but includes the following listed in this critical care notation. Total Critical Care Time: 30 Vital system(s) involved:: Circulatory Failure, Respiratory Failure My critical care processes included: Assessment & monitoring of V/S, Initial and Re-exams, Data Review/Interpretation, Coordinating Care, Medication Orders and management Medical Decision Making - Medical Records Medical records reviewed: Yes: I reviewed the patient's medical records. - Max Inquiry Pt receiving controlled substance: No Vital Signs: 03/07/21 01:49 Temperature 97.9 F Temperature Source Oral Pulse Rate [Right] 147 H Respiratory Rate 28 H Blood Pressure [Right Arm] 175/113 H Blood Pressure Mean [Right Arm] 133 02 Sat by Pulse Oximetry 93 L - Lab Data Lab Results 03/07/21 02:05: WBC 17.4 H, RBC 6.83 H, Hgb 16.8, Hct 55.4 H, MCV 81.0, MCH 24.6 L, MCHC 30.4 L, RDW 16.3, Plt Count 236, MPV 9.2, Neut % (Auto) 84.0 H, Lymph % (Auto) 11.2, [place] % (Auto) 3.4, Eos % (Auto) 0.9, Baso % (Auto) 0.4, Neut # (Auto) 14.6 H, Lymph # (Auto) 2.0, [place] # (Auto) 0.6, Eos # (Auto) 0.2, Baso # (Auto) 0.1, Total Counted 100, Neutrophils % (Manual) 83 H, Lymphocytes % (Manual) 12, Atypical Lymphs % 3.0, Monocytes % (Manual) 1 L, Eosinophils % (Manual) 1, Platelet Estimate Normal, RBC Morphology Not Reportable, Microcytosis 1+, Spherocytes 1+ 03/07/21 02:05: Sodium 135 L, Potassium 4.8, Chloride 101, Carbon Dioxide 23, Anion Gap 15.8 H, BUN 17, Creatinine 1.50 H, Estimated Creat Clear 78, Estimated GFR 48 L, Est GFR ( Amer) 58 L, Glucose 277 H, Calcium 9.5, Total Bilirubin 1.6 H, AST 32, ALT 32, Alkaline Phosphatase 70, Troponin I 0.01, Total Protein 6.9, Albumin 4.4, Globulin 2.5, Albumin/Globulin Ratio 1.8, TSH < 0.02 L 03/07/21 02:05: Free T4 1.32 03/07/21 02:05: NT-Pro-B Natriuret Pep 52419 H 03/07/21 02:05: Digoxin 0.60 03/07/21 02:30: Lactate 4.5 H 03/07/21 02:48: VBG pH 7.20 L, VBG pCO2 56.9 H, VBG pO2 29.6, VBG HCO3 21.8 L, VBG Total CO2 23.5, VBG O2 Saturation 49.1 L, VBG Base Excess -6.2 L Result diagrams: 03/07/21 02:05 03/07/21 02:05 Orders (Tests/Meds): ED MEDICATIONS Generic Name Dose Route Start Last Admin Trade Name Freq PRN Reason Stop Dose Admin Diltiazem HCl 100 mg/ Sodium 100 mls @ 5 mls/hr 03/07/21 02:10 03/07/21 02:16 Chloride IV 04/06/21 02:09 5 mls/hr .Q20H KARLIE Administration Protocol Ceftriaxone Sodium 1 gm/ 50 mls @ 100 mls/hr 03/07/21 02:45 03/07/21 03:29 Sodium Chloride IV 03/21/21 02:44 100 mls/hr Q24H KARLIE Administration Protocol Discontinued Medications Generic Name Dose Route Start Last Admin Trade Name Freq PRN Reason Stop Dose Admin Albuterol/Ipratropium 3 ml 03/07/21 02:33 03/07/21 02:34 Ipratropium/Albuterol 3 Ml Neb IH 03/07/21 02:34 3 ml ONCE ONE Administration Diltiazem HCl 10 mg 03/07/21 01:55 03/07/21 02:15 Diltiazem 25mg/5ml Vial IV 03/07/21 01:56 10 mg ONCE ONE Administration Furosemide 40 mg 03/07/21 02:36 03/07/21 02:47 Furosemide 40mg/4ml Vial IV
[2021-03-07 02:28] LABS: Alanine Aminotransferase 32 U/L (12-78); Albumin Level 4.4 g/dl (3.5-5.0); Albumin/Globulin Ratio 1.8 (1.1-1.8); Alkaline Phosphatase 70 U/L (38-126); Anion Gap 15.8 mEq/L (5-15); Aspartate Amino Transferase 32 U/L (17-59); Bilirubin,Total 1.6 mg/dl (0.2-1.3); Blood Urea Nitrogen 17 mg/dl (9-20); Calcium 9.5 mg/dl (8.4-10.2); Carbon Dioxide 23 mmol/L (22.0-30.0); Chloride 101 mmol/L (98-107); Creatinine Clearance Estimated 78 mL/min (50-200); Estimated Glomerular Filt Rate 48 ml/min (>60); GFR (African American) 58 ML/MIN (>60); Globulin 2.5 g/dL (1.3-3.2); Glucose 277 mg/dl (74-100); Potassium 4.8 mmoL/L (3.5-5.1); Sodium 135 mmol/L (136-145); Total Protein,Serum 6.9 g/dl (6.3-8.2)
[2021-03-07 02:29] LABS: Basophils # 0.1 K/mm3 (0-0.2); Basophils % 0.4 % (0.1-2.0); Eosinophils # 0.2 K/mm3 (0.0-0.4); Eosinophils % 0.9 % (0.1-12.0); Hematocrit 55.4 % (42.0-52.0); Hemoglobin 16.8 g/dL (14.1-18.0); Lymphocytes % 11.2 % (10-50); Mean Corpuscular HGB Conc 30.4 g/dL (31.8-35.4); Mean Corpuscular Hemoglobin 24.6 pg (27.0-31.2); Mean Platelet Volume 9.2 fl (7.4-10.4); Monocytes # 0.6 K/mm3 (0.1-1.0); Monocytes % 3.4 % (1.7-9.3); Neutrophils # 14.6 K/mm3 (1.8-7.8); Platelet Count 236 K/mm3 (142-424); Red Blood Count 6.83 M/mm3 (4.60-6.20); Red Cell Distribution Width 16.3 % (11.5-17.5); White Blood Count 17.4 K/mm3 (4.8-10.8)
[2021-03-07 02:32] LABS: MANUAL DIFFERENTIAL MANUAL DIFFERENTIAL (MANUAL DIFF)
[2021-03-07 02:41] LABS: NT Pro Brain Natriuretic Pep. 16300 pg/mL (0-125)
[2021-03-07 02:44] LABS: Free T4 (Free Thyroxine) 1.32 ng/dl (0.78-2.19)
[2021-03-07 02:49] LABS: VBG Base Excess -6.2 mmol/L (-2.4-2.3); VBG HCO3 21.8 mmol/L (23-30); VBG Oxygen Saturation 49.1 % (50-70); VBG PCO2 56.9 mmol/L (35-51); VBG PO2 29.6 mmol/L (28-40); VBG Total CO2 23.5 mmol/L (23-27)
[2021-03-07 02:54] LABS: Troponin I 0.01 ng/ml (0.00-0.034)
[2021-03-07 02:54] LABS: Lactic Acid 4.5 mmol/L (0.7-2.1)
--- NOTE | 2021-03-07 02:55 | PC.NURSE ---
Critical Lactic Acid called from lab and relayed to Dr Chau
[2021-03-07 02:57] LABS: Eosinophils % 1 % (0-3); Lymphocytes % 12 % (10-50); Monocytes % 1 % (2-9); Neutrophils % 83 % (42-76); Platelet Estimate Normal; Total Cells Counted 100
[2021-03-07 02:58] LABS: Microcytosis 1+; Spherocytes 1+
[2021-03-07 02:59] LABS: Thyroid Stimulating Hormone < 0.02 uIU/mL (0.465-4.68)
[2021-03-07 03:31] LABS: Microscopic, Urine URINE MICROSCOPIC (MICROSCOPIC)
[2021-03-07 03:36] LABS: Appearance,Urine SL CLOUDY (Clear); Bilirubin,Urine Negative (Negative); Blood, Urine 1+ (Negative); Color,Urine DK YELLOW (Yellow); Glucose,Urine (UA) Negative (Negative); Ketones,Urine TRACE (Negative); Leukocyte Esterase,Urine Negative (Negative); Nitrate,Urine Negative (Negative); PH,Urine 5.5 (5.0-8.5); Protein,Urine 3+ (Negative); Specific Gravity, Urine >= 1.030 (1.005-1.030); Urobilinogen,Urine 0.2 EU/dl (0.2)
[2021-03-07 03:52] LABS: Bacteria,Urine 1+ /lpf; Mucus,Urine 3+ /lpf; Squamous Epithelial Cell,Urine Occasional #/hpf (0-5)
[2021-03-07 05:36] LABS: Troponin I 0.03 ng/ml (0.00-0.034)
[2021-03-07 06:34] LABS: Reflex Lactic Add Lactic Reflex
--- NOTE | 2021-03-07 08:33 | HMH.HP ---
*Admission Date: 03/07/21 *Chief complaint: Shortness of breath *History of present illness: 55-year-old male with hyperthyroidism and atrial fibrillation presented to the emergency department after acute onset of shortness of breath at home yesterday evening. Patient was attending a family event when he began to feel short of breath. As the evening progressed his dyspnea worsened and patient had unrelenting cough. He denies chest pain. Patient had run out of furosemide 48 hours prior. Earlier in the week patient had also seen local cardiology were medication adjustments were made to his rate control regimen. When patient's dyspnea progressed to the point where patient was afraid he presented to the emergency department. Patient was found to be in acute respiratory failure from acute congestive heart failure. Patient was placed on BiPAP and diuresed with Lasix. Patient was admitted to the stepdown unit due to his need for IV Cardizem drip for his A. fib with RVR and BiPAP for respiratory failure. Since administration of Lasix patient has had over 1700 mL of urine output. Patient's pulse rate is in the low 100s on a Cardizem drip. Patient reports improvement with diuresis. During interview patient was taken off BiPAP and placed on nasal cannula at 2 L/min which has maintained his O2 sats between 93 and 97%. Past medical history is significant for hospitalization in late December when patient presented with atrial fibrillation and hyperthyroidism. At that time patient required high doses of both metoprolol tartrate and diltiazem to keep his heart rate below 100. Patient was also started on propylthiouracil 150 mg 3 times daily at that time. Since that time patient is undergone periodic adjustments to medications to control his rate as his hyperthyroidism has become under better control. He is seeing endocrinology in [place] and current dose of propylthiouracil is 100 mg each morning, 50 mg in the afternoon, and 50 mg at night. Patient was treated with 10 days of SSKI by his tobacco primer machine operator. Last free T4 (performed on admission) and free T3 (from February 10) are in a normal range. Patient believes he has been told by his tobacco primer machine operator he will need to have thyroidectomy. [facility] History I have reviewed the patient's past medical history: Yes Medical History: Reports:: Atrial Fibrillation, Congestive Heart Failure, Hypertension Denies:: Cancer, Diabetes Mellitus Type 1, Diabetes Mellitus Type 2, MRSA *Have you ever received a pneumonia vaccine?: No *Have you received a flu vaccine this season?: Yes Other Medical History: Reports: Thyroid Disease (Hyperthyroidism) Laterality Cases: Bilateral: Other Amputation: No Fractures: No - *Social History Smoking Status: Never smoker Alcohol Intake: never *Occupational Status:: disabled *Travel in the last 8 weeks: None Family Hx:: Coronary Artery Disease Review of Systems - Constitutional Denies anorexia, Denies body ache(s), Denies chills, Denies lack of energy - Eyes Denies blind spots - ENT Denies abnormal hearing - *Cardiovascular Reports leg swelling, Denies chest pain, Denies chest pain at rest - *Respiratory Reports chest congestion, Reports cough, Reports shortness of breath, Reports shortness of breath with activity, Denies change in phlegm color - *Gastrointestinal Reports bloating, Denies belching, Denies loose stools - *Genitourinary Denies difficulty urinating - *Musculoskeletal Denies abnormal walking - Integumentary/Breasts Denies hair loss - *Neurologic Denies abnormal walking, Denies abnormal hearing - Psychiatric Reports abnormal sleep pattern, Reports anxiety Meds Home Medications Medication Instructions Recorded Confirmed Type Apixaban [Eliquis 5mg Tablet] 5 mg PO BID 01/24/21 03/07/21 History Digoxin [Digoxin 0.125mg Tablet] 125 mcg PO DAILY 01/24/21 03/07/21 History propylthiouraciL [Propylthiouracil 150 mg PO Q8 01/24/21 03/07/21 History 50mg Ta
--- NOTE | 2021-03-07 09:11 | HMH.PHAVTE ---
[facility] Pharmacy VTE Monitoring - Patient Demographics Admission date: 03/07/21 Report Date: 03/07/21 Time: 09:11 Allergies/Adverse Reactions: Patient Allergies strawberry Allergy (Intermediate, Verified 03/03/21 09:36) Rash Height: 1.73 m Weight: 83.631 kg Patient Problems: Current Active Problems Acute respiratory failure (Acute) CHF exacerbation (Acute) Acute respiratory acidosis (Acute) Sepsis (Acute) Acute systolic (congestive) heart failure (Acute) Atrial fibrillation with rapid ventricular response (Acute) Obstructive sleep apnea (Acute) Hyperthyroidism (Acute) Graves disease (Acute) - VTE Risk Labs: VTE Related Lab Results Hgb 16.8 g/dL (14.1-18.0) 03/07/21 02:05 Hct 55.4 % (42.0-52.0) H 03/07/21 02:05 Plt Count 236 K/mm3 (142-424) 03/07/21 02:05 BUN 17 mg/dl (9-20) 03/07/21 02:05 Creatinine 1.50 mg/dl (0.66-1.25) H 03/07/21 02:05 Estimated Creat Clear 78 mL/min (50-200) 03/07/21 02:05 - Prophylaxis VTE Prophylaxis Ordered?: Yes Types of VTE Prophylaxis: TEDS Knee High, Pharmacological Location of Applied Device: Bilateral Lower Extremeties Pharmacologic Type: Other (ELIQUIS)
[2021-03-07 09:22] LABS: Lactic Acid Follow Up (RFLX 1) 0.9 mmol/L (0.7-2.1)
[2021-03-07 09:34] LABS: Troponin I 0.02 ng/ml (0.00-0.034)
--- NOTE | 2021-03-07 11:32 | HMH.PHAINT ---
MEDICATION RECONCILIATION COMPLETED ON PATIENT USING LIST FROM CARDIOLOGY OFFICE. -LEATHA LIU, ABDULLAHID
[2021-03-07 11:38] LABS: POC Glucose,Bedside 187 (70-110)
--- NOTE | 2021-03-07 15:00 | PC.NURSE ---
No acute changes noted this shift, remains in afib per telemetry, cardizem drip infusing at 10mg/hr, rate is now controlled 80-90, remains on 2LNC and tolerating well, alert and oriented x4, denies any pain, lung sounds diminished in bl bases with scattered rhonchi noted, abd soft and nontender, active bowel sounds in all quads, peripheral pulses 2+, voids per FC, urine yellow and clear, no s/s of distress noted, vss, will continue to monitor.
[2021-03-07 20:25] LABS: POC Glucose,Bedside 195 (70-110)
[2021-03-08] VITALS (15 sets, daily range): BP systolic 110–161; BP diastolic 53–114; PULSE 10–126; RESP 14–30; TEMP 36.6–36.9; O2SAT 90–97; BMI 28.0
--- NOTE | 2021-03-08 | CA_ITS ---
APPROVED REPORT Exam: Pharmacologic Technologist: yeni zhang, Ht: 5 ft 8 in Wt: 185 lbs BSA: 1.98 m2 HR: 102 bpm BP: 134/96 mmHg Indications: A-Fib, SOB Medical History Medications: Losartan,,,,, Metoprolol Succinate,,,,, Digoxin,,,,, DilTiazem,,,,, Apixaban,,,,, PropYLTHIOURARIL,,,,, Furosemide,,,,, Ceftriaxone,,,,, Allergies: [place] Cardiac Risk Factors: HTN, FHX of CAD Stress Test Details Test: LEXISCAN HR Resting HR: 95 bpm Max Heart Rate (APMHR): 163.664638 bpm Max HR Achieved: 136 bpm Target HR (85% APMHR): 138.884232 bpm % of APMHR: 83.44 Recovery HR: 123 bpm BP Resting BP: 134/96 mmHg Max BP: 145/90 mmHg Recovery BP: 137.0/104.0 mmHg ECG Resting ECG: A-fib, LVH, ST-T abns, possible dig effect Clinical Exercise duration: 04:01 min Highest Stage Achieved: Exercise capacity: 1.0 METs Stress ECG Conclusion No chest pain. Patient c/o SOA. Rare PVC vs abberrantly conducted beat. Mild exaggeration of baselineST abns. Non-diagnostic Lexiscan stress. Images reported separately. Test Summary REST 04:33 . . 95 . 134/ 96 . . Stage 1 01:00 . . 96 . . . . Stage 2 01:00 . . 103 . . . . Stage 3 01:00 . . 107 . 144/105 . . Stage 4 01:00 . . 103 . 141/ 96 . . Stage 4 01:01 . . 103 . 141/ 96 . Stop exercise at 04:01 RECOVERY 01:00 . . 94 . 137/104 . . RECOVERY 02:00 . . 103 . 137/104 . . RECOVERY 03:00 . . 117 . 140/104 . . RECOVERY 03:53 . . 107 . 145/ 90 . . Electronically signed by : Dipak Bradford, 03/08/2021 17:58:10
--- NOTE | 2021-03-08 04:45 | PC.NURSE ---
He continues in afib on telemetry and is controlled but his pulse does increase to 110-115 for short periods of time. He denies SOA. Trace edema BLE. Denies pain. Continues on RA. Voiding per urinal.
[2021-03-08 06:05] LABS: Basophils % 0.1 % (0.1-2.0); Eosinophils # 0.1 K/mm3 (0.0-0.4); Eosinophils % 0.3 % (0.1-12.0); Hematocrit 49.7 % (42.0-52.0); Hemoglobin 15.9 g/dL (14.1-18.0); Mean Corpuscular Hemoglobin 24.8 pg (27.0-31.2); Mean Corpuscular Volume 77.6 fl (80-94); Mean Platelet Volume 7.3 fl (7.4-10.4); Monocytes # 0.9 K/mm3 (0.1-1.0); Monocytes % 4.8 % (1.7-9.3); Neutrophils # 17.4 K/mm3 (1.8-7.8); Neutrophils % 89.8 % (37.0-80.0); Platelet Count 152 K/mm3 (142-424); Red Cell Distribution Width 16.2 % (11.5-17.5); White Blood Count 19.4 K/mm3 (4.8-10.8)
[2021-03-08 06:07] LABS: Chloride 102 mmol/L (98-107); MANUAL DIFFERENTIAL MANUAL DIFFERENTIAL (MANUAL DIFF); Sodium 138 mmol/L (136-145)
[2021-03-08 06:10] LABS: Blood Urea Nitrogen 29 mg/dl (9-20); Creatinine Clearance Estimated 81 mL/min (50-200); Estimated Glomerular Filt Rate 62 ml/min (>60); GFR (African American) 76 ML/MIN (>60)
[2021-03-08 06:11] LABS: Carbon Dioxide 30 mmol/L (22.0-30.0); Glucose 133 mg/dl (74-100)
[2021-03-08 06:22] LABS: Lymphocytes % 4 % (10-50); Monocytes % 2 % (2-9); Neutrophils % 94 % (42-76); Platelet Estimate Normal; Total Cells Counted 100
[2021-03-08 06:23] LABS: Acanthocytes 1+; Calcium 8.4 mg/dl (8.4-10.2); Ovalocytes 1+
--- NOTE | 2021-03-08 07:12 | HMH.ACPN2 ---
Internal Medicine - PN: Subj *Date: 03/08/21 *Time: 07:12 Interval history: Patient is feeling better this morning. Cardizem drip was discontinued yesterday afternoon and patient was transitioned to oral Cardizem ER 120 mg daily. Patient was also given an additional dose of metoprolol ER 100 mg yesterday evening. Since discontinuation of Cardizem drip patient's pulse rate is ranged between 80 and 120. Patient's pulse will elevate with minor activities such as movement within the bed or movement of the upper extremities. Patient reports significant improvement in shortness of breath. Patient slept well without need for supplemental oxygen or hypnotic medication. Exam Vital signs and Labs for Last 24 Hours: Temp Pulse Resp BP Pulse Ox 97.9 F 109 H 17 139/99 H 95 03/08/21 04:00 03/08/21 06:00 03/08/21 04:00 03/08/21 06:00 03/08/21 06:00 Laboratory Results - last 24 hr 03/07/21 08:41: Troponin I 0.02 03/07/21 08:41: Lactate 0.9 03/07/21 11:21: POC Glucose 187 H 03/07/21 20:06: POC Glucose 195 H 03/08/21 05:45: WBC 19.4 H, RBC 6.40 H, Hgb 15.9, Hct 49.7, MCV 77.6 L, MCH 24.8 L, MCHC 32.0, RDW 16.2, Plt Count 152 D, MPV 7.3 L, Neut % (Auto) 89.8 H, Lymph % (Auto) 5.0 L, [place] % (Auto) 4.8, Eos % (Auto) 0.3, Baso % (Auto) 0.1, Neut # (Auto) 17.4 H, Lymph # (Auto) 1.0, [place] # (Auto) 0.9, Eos # (Auto) 0.1, Baso # (Auto) 0.0, Total Counted 100, Neutrophils % (Manual) 94 H, Lymphocytes % (Manual) 4 L, Monocytes % (Manual) 2, Platelet Estimate Normal, Ovalocytes 1+, Acanthocytes (Spur) 1+ 03/08/21 05:45: Sodium 138, Potassium 4.0, Chloride 102, Carbon Dioxide 30 D, Anion Gap 10.0, BUN 29 H D, Creatinine 1.20, Estimated Creat Clear 81, Estimated GFR 62, Est GFR ( Amer) 76 D, Glucose 133 H, Calcium 8.4 D I & O for Last 24 hours: Intake & Output 03/05/21 03/06/21 03/07/21 03/08/21 11:59 11:59 11:59 11:59 Intake Total 320 / 320 780 / 780 Output Total 1750 / 1750 3230 / 3230 Balance -1430 / -1430 -2450 / -2450 Weight 184 lb 6 oz 185 lb Microbiology Reports for the Last 24 Hours: Microbiology 03/07/21 03:00 Nasopharyngeal Coronavirus COVID-19 PCR - Final - Constitutional no acute distress - *Routine Respiratory Exam Present: CTA bilaterally - *Routine Cardiovascular Exam Present: irregularly irregular - *Routine Extremities Exam Absent: edema Assessment and Plan (1) Acute systolic (congestive) heart failure Status: Acute Category: Medical Code(s): I50.21 - Acute systolic (congestive) heart failure (2) Acute respiratory failure Status: Resolved Qualifiers: Respiratory failure complication: hypercapnia Qualified Code(s): J96.02 - Acute respiratory failure with hypercapnia Category: Medical Code(s): J96.00 - Acute respiratory failure, unspecified whether with hypoxia or hypercapnia (3) Atrial fibrillation with rapid ventricular response Status: Acute Category: Medical Code(s): I48.91 - Unspecified atrial fibrillation (4) Graves disease Status: Acute Category: Medical Code(s): E05.00 - Thyrotoxicosis with diffuse goiter without thyrotoxic crisis or storm (5) Hyperthyroidism Status: Acute Category: Medical Code(s): E05.90 - Thyrotoxicosis, unspecified without thyrotoxic crisis or storm (6) Obstructive sleep apnea Status: Acute Category: Medical Code(s): G47.33 - Obstructive sleep apnea (adult) (pediatric) - Assessment and plan all Dx Assessment and Plan for all problems:: 1. Increase metoprolol to 200 mg daily. Continue Cardizem and digoxin. Consult cardiology to maintain continuity as patient saw Dr. Bradford last week 2. Continue Lasix 40 mg p.o. daily 3. Patient's hyperthyroidism is controlled with his current medical regimen after a 10-day course of SSKI. Patient free T3 and free T4 levels are normal. Patient has follow-up with his medical social consultant in 2 weeks 4. White blood cell count remains elevated. Continue to
--- NOTE | 2021-03-08 07:59 | HMH.CNCARD ---
History of Present Illness Consult date: 03/08/21 Requesting physician: Christophe Kumar Consult reason: atrial fibrillation Chief complaint: atrial fib with RVR History of present illness: 55-year-old male admitted to [facility] for atrial fibrillation with RVR. Patient states he was seen by housing assistant property manager on 03/03/2021 for new onset atrial fibrillation diagnosed December 2020. Atrial fibrillation RVR was a result of thyroid storm. Since that time patient, patient has been treated for his hyperthyroidism which at this time is within normal. Patient does see Dr. Jessa Horn strip roller for hyperthyroidism. Patient does have active Graves' disease and is being treated by Dr. Horn. Patient does complain of a cough. Patient states when he was seen by cardiology a few days ago, medications were changed. Patient also states on Sunday, prior to coming to the emergency room, patient was given his first dose of Covid vaccine. Patient states he is unsure if it was just a reaction to the vaccine or if it was changes in the medications that caused him to have increased shortness of breath accompanied with palpitations. Patient states he felt like he was smothering prior to arriving to the ED. Patient stated he felt swollen. Patient denied chest pain, tightness or pressure. Patient was noted to be in atrial fibrillation with RVR upon arrival to the ED. Patient was placed on a Cardizem drip at that time. Cardizem drip has been DC'd. PCP prescribed patient Cardizem ER p.o. and did increase metoprolol to 200 mg p.o. daily this a.m. Patient does remain in atrial fibrillation with a heart rate ranging from 90bmp to 130bpm. Patient is on Eliquis twice daily for atrial fibrillation. Denies any bleeding issues. Patient denies chest pain, tightness or pressure. Patient states his increased shortness of breath has improved. Patient states he is only shortness of breath with slight exertion. Denies fever, nausea or diarrhea. No swelling noted of the lower extremity. Echocardiogram from December 2020 revealed EF 40 to 45% with mild MR and TR regurgitation no pericardial effusion noted. Echo-Conclusion DECEMBER 2020 1. Technically difficult study because of the patient factors and patient was in atrial fibrillation with rapid ventricular response throughout this study, which makes it difficult to accurately assess systolic function. Visually estimated ejection fraction is approximately 40 to 45%. 2. Mild mitral and tricuspid regurgitation. 3. No significant pericardial effusion noted. Discussed plan of care with Dr. Sarkar. Will have patient undergo Lexiscan Myoview to determine coronary artery disease. Will obtain echocardiogram to assess LV function and valve status. Pending on the results of Lexiscan Myoview and echocardiogram, medication and treatment changes may be recommended. Thank you for allowing cardiology to participate in the care of this patient. [facility] History I have reviewed the patient's past medical history: Yes Medical History: Reports:: Atrial Fibrillation, Congestive Heart Failure, Hypertension Denies:: Cancer, Diabetes Mellitus Type 1, Diabetes Mellitus Type 2, MRSA *Have you ever received a pneumonia vaccine?: Yes *Have you received a flu vaccine this season?: Yes Other Medical History: Reports: Thyroid Disease (Hyperthyroidism) Laterality Cases: Bilateral: Other Other Surgeries: Yes: Angiogram Amputation: No Fractures: No - *Social History Last grade of school completed: Some college Smoking Status: Never smoker Alcohol Intake: never *Occupational Status:: retired Housing: house Household Members: spouse, family, children *Travel in the last 8 weeks: None Family Hx:: Hyperlipidemia, Hypertension, Thyroid Disorder Meds Home Medications Medication Instructions Recorded Confirmed Type RX: Apixaban [Eliquis 5mg Tablet] 5 mg PO BID 01/24/21 03/07/21 History RX: Digoxin [Digoxin 0.125mg 125 mcg PO DAILY 01/24/21 03/07/21
--- NOTE | 2021-03-08 10:44 | NM_ITS ---
APPROVED REPORT Exam: Nuclear Stress Test Indication: short of breath Patient Location: Inpatient Stress Tech: Loren Hirsch HI Tech:YVETTE Nolen RT(R)(N) Ht: 5 ft 8 in Wt: 180 lbs HR: 102 bpm BP: 134/96 mmHg BSA: 1.95 m2 BMI: 27.3 History: short of breath Procedure: Patient received a 0.4 mg of intravenous Lexiscan, resting heart rate 102 bpm, resting blood pressure 134/96 mmHg, with Lexiscan maximum heart rate achived was 103 bpm which is 85 % of the maximum predicted heart rate and blood pressure was 144/105 mmHg. With Lexiscan, patient denied any complaint of chest pain. Electrocardiogram Resting electrocardiogram showed atrial fibrillation nonspecific ST-T changes possible dig effect, with Lexiscan there is less than 1.[address] segment depression noted from the baseline EKG. The EKG portion of the Lexiscan is nondiagnostic. Cardiac Stress and Resting SPECT Images: Cardiac Stress and Resting SPECT images were obtained using technetium 99m Myoview 30.6 mCi stress and 9.48 mCi at rest. Gated SPECT for analysis of segmental wall motion and calculation of the ejection fraction also done. Prone images were also obtained. Cardiac stress and resting SPECT images show uniform myocardial activity without segmental perfusion abnormality, the left ventricle is dilated both stress and rest, there is severe left ventricular systolic dysfunction, computer derived ejection fraction is 15% with left ventricle global hypokinesis. Right ventricle is mildly enlarged with normal contractility. Conclusion: 1. The EKG portion of the Lexiscan Myoview is nondiagnostic 2. No scintigraphic evidence of reversible ischemia seen, computer derived ejection fraction is 50% with severe left ventricular global hypokinesis, right ventricle is mildly enlarged with normal contractility, left ventricle is dilated both stress and rest, however during the study patient was in atrial fibrillation with variable ventricular response that may underestimate the ejection fraction by gated SPECT. An echocardiogram will be better modality to evaluate left ventricular systolic function in this patient. 3. Abnormal Lexiscan Myoview study. Electronically signed by : Dipak Bradford, 03/08/2021 18:02:53
--- NOTE | 2021-03-08 10:45 | CA_ITS ---
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 Velocity 225.00 cm/s RAP Estimate 10.00 mmHg RVSP 30.30 mmHg Left Ventricle Left atrium is moderately enlarged, left ventricle is mildly dilated, severe reduced left ventricular systolic function, visually estimated ejection fraction 15 to 20%, left ventricle is globally hypokinetic. Diastolic parameters are inconclusive. Right Ventricle Right atrium and right ventricle are normal size with normal contractility. Aortic Valve Aortic valve is minimally thickened and fibrosed, there is no aortic stenosis or aortic insufficiency. Mitral Valve Mitral valve grossly normal, mitral annulus is mildly dilated, there is moderate mitral regurgitation. Tricuspid Valve Tricuspid valve is grossly normal, there is mild tricuspid regurgitation, tricuspid regurgitation jet velocity is inadequate for calculation of the right ventricular systolic pressure. Pulmonic Valve Pulmonic valve is poorly visualized. Great Vessels Aortic root is normal size. Pericardium No significant pericardial effusion noted. Conclusion 1. Moderately enlarged left atrium, mildly dilated left ventricle, severe reduced left ventricular systolic function, visually estimated ejection fraction 15 to 20%, left ventricle is globally hypokinetic. Diastolic parameters are inconclusive. 2. Moderate mitral and mild tricuspid regurgitation. 3. No significant pericardial effusion noted. Electronically signed by : Dipak Bradford, 03/08/2021 18:32:41
[2021-03-08 17:06] LABS: POC Glucose,Bedside 99 (70-110)
[2021-03-08 17:06] LABS: POC Glucose,Bedside 133 (70-110)
--- NOTE | 2021-03-08 17:44 | PC.NURSE ---
shift note: pt has been stable this shift. Up ad deacon. Had stress test and nuclear med test today. Is tolerating cardiac diet. Remains on RA with O2 sat high 90s. Continues in uncontrolled Afib with rate 110-120s. Denies pain. FSBS 99 and 133 today. No issues noted.
[2021-03-09] VITALS (26 sets, daily range): BP systolic 114–152; BP diastolic 59–106; PULSE 61–140; RESP 13–24; TEMP 36.7–36.8; O2SAT 91–98; BMI 27.4
--- NOTE | 2021-03-09 | IR_ITS ---
APPROVED REPORT Patient Location: Inpatient PROCEDURES Left heart catheterization Left ventriculogram Selective coronary angiogram INDICATION Cardiomyopathy ejection fraction 20%, Atrial fibrillation rapid ventricular response Informed consent was obtained prior to the procedure. COMPLICATIONS None Estimated Blood Loss: Less than 10 mls TECHNIQUE One percent lidocaine used to anesthetize the right anterior aspect of the wrist. The right radial artery was accessed via the Seldinger technique. A 6 [place] sheath was placed in the right radial artery. 2.5 mg of verapamil, 800 mcg of nitroglycerin, 1mg Lidocaine and 5000 U Heparin were given through the arterial sheath. The trap catheter was also used to perform left heart catheterization, left ventriculogram and selective coronary angiogram. At the end of the procedure the sheath was removed good hemostasis was achieved using Traclet band, patient was transferred to the postop holding area in stable condition. ANGIOGRAPHIC RESULTS The left main artery Normal The left anterior descending artery Has mild proximal 10% stenoses and mid vessel 10% stenoses. MAGGIE II flow was present down the LAD The circumflex artery Is a codominant vessel and has had mild mid vessel and distal 10% nonflow limiting stenoses The right coronary artery Is a codominant vessel with proximal 20 to 30% stenoses mid vessel 40% stenosis at a 2.25 mm vessel. A distal marginal branch has a concentric 80 to 90% stenosis in 1.5 mm posterior lateral vessel The CHOI ventriculogram reveals Dilated ventricle global hypokinesis estimate ejection fraction 25% The left ventricular end-diastolic pressure 30 mmHg IMPRESSION Mild nonflow limiting coronary disease in the LAD and circumflex artery Severe stenosis in a small 1.5 mm posterior lateral branch which is too small for coronary revascularization Dilated left ventricle with global hypokinesis Elevated LVEDP PLAN 1. Standard therapy for cardiomyopathy 2. Rate control with beta-marko therapy, metoprolol or bisoprolol, combined with digoxin 3. I would like to better understand the etiology of patient's hyperthyroidism prior to starting amiodarone therapy. If the etiology of the hyperthyroidism is better understood patient may be a candidate for amiodarone usage 4. Continue anticoagulation for atrial fibrillation 5. Standard therapy for systolic heart failure including Entresto and diuretics 6. Patient should be discharged home with a LifeVest given his severe cardiomyopathy 7. The etiology for the cardiomyopathy is currently unknown. We may want to consider performing a cardiac MRI in the future after rate control has been achieved Electronically signed by : Los Sarkar, 03/09/2021 13:52:56
[2021-03-09 01:02] LABS: POC Glucose,Bedside 127 (70-110)
--- NOTE | 2021-03-09 02:15 | PC.NURSE ---
patient complained of pain in epigastric region, zofran given. patient states that it has helped some.
[2021-03-09 06:36] LABS: POC Glucose,Bedside 95 (70-110)
--- NOTE | 2021-03-09 06:40 | PC.NURSE ---
patient has not rested well tonight, refused ambian. no further complaints of epigastric pain throughout remainder of this shift. 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 o2 sats have remained 92% or greater.
[2021-03-09 06:50] LABS: Basophils % 0.2 % (0.1-2.0); Eosinophils # 0.3 K/mm3 (0.0-0.4); Eosinophils % 2.1 % (0.1-12.0); Hematocrit 50.4 % (42.0-52.0); Hemoglobin 15.9 g/dL (14.1-18.0); Lymphocytes # 2.2 K/mm3 (0.7-4.5); Lymphocytes % 15.5 % (10-50); Mean Corpuscular HGB Conc 31.6 g/dL (31.8-35.4); Mean Corpuscular Hemoglobin 24.8 pg (27.0-31.2); Mean Corpuscular Volume 78.5 fl (80-94); Mean Platelet Volume 8.7 fl (7.4-10.4); Monocytes # 0.9 K/mm3 (0.1-1.0); Neutrophils # 10.9 K/mm3 (1.8-7.8); Neutrophils % 76.3 % (37.0-80.0); Platelet Count 174 K/mm3 (142-424); Red Blood Count 6.41 M/mm3 (4.60-6.20); Red Cell Distribution Width 16.3 % (11.5-17.5); White Blood Count 14.2 K/mm3 (4.8-10.8)
[2021-03-09 07:09] LABS: Anion Gap 5.7 mEq/L (5-15); Blood Urea Nitrogen 23 mg/dl (9-20); Calcium 8.3 mg/dl (8.4-10.2); Carbon Dioxide 30 mmol/L (22.0-30.0); Chloride 104 mmol/L (98-107); Creatinine Clearance Estimated 95 mL/min (50-200); Estimated Glomerular Filt Rate 77 ml/min (>60); GFR (African American) 93 ML/MIN (>60); Glucose 98 mg/dl (74-100); Potassium 3.7 mmoL/L (3.5-5.1); Sodium 136 mmol/L (136-145)
--- NOTE | 2021-03-09 07:18 | P.PN_ITS ---
Internal Medicine - PN: Subj *Date: 03/09/21 *Time: 07:18 Interval history: No new complaints. Pulse rate remains between 80 and 120. He did receive an additional dose of metoprolol ER 100 mg yesterday evening. Echocardiogram revealed EF of 15%. Patient was informed of results. Exam Vital signs and Labs for Last 24 Hours: Temp Pulse Resp BP Pulse Ox 98.2 F 82 16 148/82 H 93 L 03/09/21 04:00 03/09/21 06:00 03/09/21 06:00 03/09/21 06:00 03/09/21 06:00 Laboratory Results - last 24 hr 03/07/21 02:05: Free T3 3.0 03/08/21 11:57: POC Glucose 99 03/08/21 16:37: POC Glucose 133 H 03/08/21 20:10: POC Glucose 127 H 03/09/21 06:02: WBC 14.2 H D, RBC 6.41 H, Hgb 15.9, Hct 50.4, MCV 78.5 L, MCH 24.8 L, MCHC 31.6 L, RDW 16.3, Plt Count 174, MPV 8.7, Neut % (Auto) 76.3, Lymph % (Auto) 15.5, [place] % (Auto) 6.0, Eos % (Auto) 2.1, Baso % (Auto) 0.2, Neut # (Auto) 10.9 H, Lymph # (Auto) 2.2, [place] # (Auto) 0.9, Eos # (Auto) 0.3, Baso # (Auto) 0.0 03/09/21 06:02: Sodium 136, Potassium 3.7, Chloride 104, Carbon Dioxide 30, Anion Gap 5.7, BUN 23 H, Creatinine 1.00, Estimated Creat Clear 95, Estimated GFR 77, Est GFR ( Amer) 93 D, Glucose 98, Calcium 8.3 L 03/09/21 06:24: POC Glucose 95 I & O for Last 24 hours: Intake & Output 03/06/21 03/07/21 03/08/21 03/09/21 11:59 11:59 11:59 11:59 Intake Total 320 / 320 1260 / 1260 720 / 720 Output Total 1750 / 1750 3230 / 3230 900 / 900 Balance -1430 / -1430 -1970 / -1970 -180 / -180 Weight 184 lb 6 oz 185 lb 181 lb 2 oz - Constitutional no acute distress - *Routine Respiratory Exam Present: CTA bilaterally - *Routine Cardiovascular Exam Present: tachycardia, irregularly irregular Assessment and Plan (1) Acute systolic (congestive) heart failure Status: Acute Category: Medical Code(s): I50.21 - Acute systolic (congestive) heart failure (2) Acute respiratory failure Status: Resolved Qualifiers: Respiratory failure complication: hypercapnia Qualified Code(s): J96.02 - Acute respiratory failure with hypercapnia Category: Medical Code(s): J96.00 - Acute respiratory failure, unspecified whether with hypoxia or hypercapnia (3) Atrial fibrillation with rapid ventricular response Status: Acute Category: Medical Code(s): I48.91 - Unspecified atrial fibrillation (4) Graves disease Status: Acute Category: Medical Code(s): E05.00 - Thyrotoxicosis with diffuse goiter without thyrotoxic crisis or storm (5) Hyperthyroidism Status: Acute Category: Medical Code(s): E05.90 - Thyrotoxicosis, unspecified without thyrotoxic crisis or storm (6) Obstructive sleep apnea Status: Acute Category: Medical Code(s): G47.33 - Obstructive sleep apnea (adult) (pediatric) (7) Cardiomyopathy Status: Acute Category: Medical Code(s): I42.9 - Cardiomyopathy, unspecified - Assessment and plan all Dx Assessment and Plan for all problems:: 1. Await further cardiology recommendations. I have discontinued patient's Eliquis for the time being in the event that LHC is needed.
--- NOTE | 2021-03-09 07:27 | HMH.PNCARD ---
Subjective Date: 03/09/21 Time: 07:30 Principal diagnosis: Atrial fib Interval history: 55-year-old male admitted to [facility] with atrial fibrillation RVR. Patient remains in atrial fibrillation with a heart rate ranging from 90-133bpm. PCP stated throughout the night he did order an extra metoprolol which did lower his heart rate into the 90s. Patient denies chest pain, tightness or pressure. Patient denies shortness of breath. No swelling of the lower extremities noted. Patient states that he can feel that his heart is racing but does tend to slow down when he is relaxed. Patient was given anti-anxiety medication p.o. this morning due to increased anxiety over test results. Echocardiogram from December 2020 revealed EF 40 to 45% with mild MR and TR noted. Repeated limited echocardiogram reveals EF 15 to 20% with moderate mitral and mild tricuspid regurgitation. Patient did undergo Lexiscan Myoview stress test which revealed EF 15% with severe left ventricular global hypokinesis. Discussed with patient the risk and benefits of undergoing left heart catheterization today due to ischemic cardiomyopathy. Patient and verbalized understanding and is agreeable to procedure. PCP did stop Eliquis this a.m. due to pending procedure. Discussed with patient the possibility of LifeVest after heart catheterization is performed. Explained the risk and benefits of wearing the LifeVest due to ischemic cardiomyopathy. Patient verbalized understanding. Discussed other options including medication changes once left heart catheterization was performed. We will stop his diltiazem due to ischemic cardiomyopathy. Echo:Conclusion 1. Moderately enlarged left atrium, mildly dilated left ventricle, severe reduced left ventricular systolic function, visually estimated ejection fraction 15 to 20%, left ventricle is globally hypokinetic. Diastolic parameters are inconclusive. 2. Moderate mitral and mild tricuspid regurgitation. 3. No significant pericardial effusion noted Lexiscan stress test:Conclusion: 1. The EKG portion of the Lexiscan Myoview is nondiagnostic 2. No scintigraphic evidence of reversible ischemia seen, computer derived ejection fraction is 15% with severe left ventricular global hypokinesis, right ventricle is mildly enlarged with normal contractility, left ventricle is dilated both stress and rest, however during the study patient was in atrial fibrillation with variable ventricular response that may underestimate the ejection fraction by gated SPECT. An echocardiogram will be better modality to evaluate left ventricular systolic function in this patient. 3. Abnormal Lexiscan Myoview study. Thank you for allowing cardiology to participate in the care of this patient. Exam Vital signs and Labs for Last 24 Hours: Temp Pulse Resp BP Pulse Ox 98.2 F 82 16 148/82 H 93 L 03/09/21 04:00 03/09/21 06:00 03/09/21 06:00 03/09/21 06:00 03/09/21 06:00 Laboratory Results - last 24 hr 03/07/21 02:05: Free T3 3.0 03/08/21 11:57: POC Glucose 99 03/08/21 16:37: POC Glucose 133 H 03/08/21 20:10: POC Glucose 127 H 03/09/21 06:02: WBC 14.2 H D, RBC 6.41 H, Hgb 15.9, Hct 50.4, MCV 78.5 L, MCH 24.8 L, MCHC 31.6 L, RDW 16.3, Plt Count 174, MPV 8.7, Neut % (Auto) 76.3, Lymph % (Auto) 15.5, [place] % (Auto) 6.0, Eos % (Auto) 2.1, Baso % (Auto) 0.2, Neut # (Auto) 10.9 H, Lymph # (Auto) 2.2, [place] # (Auto) 0.9, Eos # (Auto) 0.3, Baso # (Auto) 0.0 03/09/21 06:02: Sodium 136, Potassium 3.7, Chloride 104, Carbon Dioxide 30, Anion Gap 5.7, BUN 23 H, Creatinine 1.00, Estimated Creat Clear 95, Estimated GFR 77, Est GFR ( Amer) 93 D, Glucose 98, Calcium 8.3 L 03/09/21 06:24: POC Glucose 95 I & O for Last 24 hours: Intake & Output 03/06/21 03/07/21 03/08/21 03/09/21 23:59 23:59 23:59 23:59 Intake Total 1040 / 1040 1140 / 1260 120 / 120 Output Total 4800 / 4800 380 / 380 700 / 700 Balance -3760 / -3760 760 / 880 -580 / -580 W
--- NOTE | 2021-03-09 12:52 | PC.NURSE ---
pt to cathlab
--- NOTE | 2021-03-09 15:44 | DIET.NUTRFU ---
PO intakes 75%, weight down 2# since admit. No nutritional concerns at this time, pt and have been provided with diet edu/counseling for CHF. Continuing to monitor.
--- NOTE | 2021-03-09 16:58 | PC.NURSE ---
received call from Dr. Sarkar with new orders: give Amio 150mg bolus over 10 min, start Amio gtt after bolus complete, restart Eliquis, and NPO @ MN. Pt to get cardioverted in cathlab tomorrow.
[2021-03-10] VITALS (20 sets, daily range): BP systolic 78–153; BP diastolic 40–103; PULSE 18–120; RESP 12–20; TEMP 36.6–37; O2SAT 6–99; BMI 27.4
--- NOTE | 2021-03-10 04:33 | PC.NURSE ---
Pt A&O. NO c/o this shiftt. Amio gtt was decreased at 0000 from 1mg/hr to 0.5mg/hr. No c/o pain. PT has rested well this shift. Lungs CTA, on room air. Pt voiding independently in urinal. R radial cath site drsg CDI. no hematoma noted. Pt able to make needs known to staff. IV patent, VSS, call light in reach, no concerns this time.
[2021-03-10 04:43] LABS: Basophils % 0.4 % (0.1-2.0); Eosinophils # 0.3 K/mm3 (0.0-0.4); Eosinophils % 2.6 % (0.1-12.0); Hematocrit 53.9 % (42.0-52.0); Lymphocytes # 2.3 K/mm3 (0.7-4.5); Lymphocytes % 19.3 % (10-50); Mean Corpuscular HGB Conc 31.5 g/dL (31.8-35.4); Mean Corpuscular Hemoglobin 24.7 pg (27.0-31.2); Mean Corpuscular Volume 78.3 fl (80-94); Mean Platelet Volume 8.9 fl (7.4-10.4); Monocytes # 0.9 K/mm3 (0.1-1.0); Monocytes % 7.6 % (1.7-9.3); Neutrophils # 8.4 K/mm3 (1.8-7.8); Neutrophils % 70.2 % (37.0-80.0); Platelet Count 199 K/mm3 (142-424); Red Blood Count 6.89 M/mm3 (4.60-6.20); Red Cell Distribution Width 16.1 % (11.5-17.5); White Blood Count 11.9 K/mm3 (4.8-10.8)
[2021-03-10 04:46] LABS: Anion Gap 8.5 mEq/L (5-15); Blood Urea Nitrogen 28 mg/dl (9-20); Calcium 8.2 mg/dl (8.4-10.2); Carbon Dioxide 30 mmol/L (22.0-30.0); Chloride 103 mmol/L (98-107); Creatinine Clearance Estimated 79 mL/min (50-200); Estimated Glomerular Filt Rate 62 ml/min (>60); GFR (African American) 76 ML/MIN (>60); Glucose 149 mg/dl (74-100); Potassium 3.5 mmoL/L (3.5-5.1); Sodium 138 mmol/L (136-145)
--- NOTE | 2021-03-10 08:22 | HMH.ACPN2 ---
Internal Medicine - PN: Subj *Date: 03/10/21 *Time: 08:22 Interval history: Patient underwent left heart catheterization yesterday with without findings of obstructive coronary disease. I spoke with patient's logistics loss prevention manager and he agreed amiodarone would be an option due to the patient being on propylthiouracil. I spoke with Dr. Sarkar yesterday who initiated amiodarone drip. This morning patient remains anxious over the news regarding his cardiomyopathy. He is scheduled for cardioversion in the [facility] today. He remains in A. fib Exam Vital signs and Labs for Last 24 Hours: Temp Pulse Resp BP Pulse Ox 98.0 F 95 H 20 142/101 H 94 L 03/10/21 08:00 03/10/21 08:00 03/10/21 08:00 03/10/21 08:00 03/10/21 08:00 Laboratory Results - last 24 hr 03/10/21 04:00: WBC 11.9 H, RBC 6.89 H, Hgb 17.0, Hct 53.9 H, MCV 78.3 L, MCH 24.7 L, MCHC 31.5 L, RDW 16.1, Plt Count 199, MPV 8.9, Neut % (Auto) 70.2, Lymph % (Auto) 19.3, [place] % (Auto) 7.6, Eos % (Auto) 2.6, Baso % (Auto) 0.4, Neut # (Auto) 8.4 H, Lymph # (Auto) 2.3, [place] # (Auto) 0.9, Eos # (Auto) 0.3, Baso # (Auto) 0.0 03/10/21 04:00: Sodium 138, Potassium 3.5, Chloride 103, Carbon Dioxide 30, Anion Gap 8.5, BUN 28 H, Creatinine 1.20, Estimated Creat Clear 79, Estimated GFR 62, Est GFR ( Amer) 76, Glucose 149 H D, Calcium 8.2 L I & O for Last 24 hours: Intake & Output 03/07/21 03/08/21 03/09/21 03/10/21 11:59 11:59 11:59 11:59 Intake Total 320 / 320 1260 / 1260 960 / 960 116 / 116 Output Total 1750 / 1750 3230 / 3230 900 / 900 Balance -1430 / -1430 -1969 60 / 60 116 / 116 Weight 184 lb 6 oz 185 lb 181 lb 2 oz 181 lb 2 oz Microbiology Reports for the Last 24 Hours: Microbiology 03/07/21 03:21 Blood Blood Culture - Preliminary NO GROWTH AFTER 48 HOURS 03/07/21 03:21 Blood Blood Culture - Preliminary NO GROWTH AFTER 48 HOURS Narrative: Patient is anxious. During the interview he prefers to stand at bedside. Heart rate is generally between 110 and 130. Lungs remain clear. Heart has a rapid irregularly irregular rhythm. Lower extremities have no edema Assessment and Plan (1) Acute systolic (congestive) heart failure Status: Acute Category: Medical Code(s): I50.21 - Acute systolic (congestive) heart failure (2) Acute respiratory failure Status: Resolved Qualifiers: Respiratory failure complication: hypercapnia Qualified Code(s): J96.02 - Acute respiratory failure with hypercapnia Category: Medical Code(s): J96.00 - Acute respiratory failure, unspecified whether with hypoxia or hypercapnia (3) Atrial fibrillation with rapid ventricular response Status: Acute Category: Medical Code(s): I48.91 - Unspecified atrial fibrillation (4) Graves disease Status: Acute Category: Medical Code(s): E05.00 - Thyrotoxicosis with diffuse goiter without thyrotoxic crisis or storm (5) Hyperthyroidism Status: Acute Category: Medical Code(s): E05.90 - Thyrotoxicosis, unspecified without thyrotoxic crisis or storm (6) Obstructive sleep apnea Status: Acute Category: Medical Code(s): G47.33 - Obstructive sleep apnea (adult) (pediatric) (7) Cardiomyopathy Status: Acute Category: Medical Code(s): I42.9 - Cardiomyopathy, unspecified - Assessment and plan all Dx Assessment and Plan for all problems:: 1. Plan cardioversion today. Continue amiodarone drip. 2. Patient will start Entresto this morning. As he was not on an DINESH inhibitor to begin with there is no need for a washout. 3. Continue twice daily Lasix with monitoring of electrolytes 4. Patient will also need a LifeVest
--- NOTE | 2021-03-10 09:09 | HMH.PNCARD ---
Subjective Date: 03/10/21 Time: 09:09 Principal diagnosis: Atrial fib Interval history: 55-year-old white male in bed in no acute distress but still very anxious regarding his cardiac and medical conditions. Telemetry continues to show atrial fibrillation with rates in the 100 to 130 bpm range depending on the patient's anxiety level. IV amiodarone is continued. Exam Vital signs and Labs for Last 24 Hours: Temp Pulse Resp BP Pulse Ox 98.0 F 115 H 20 142/101 H 94 L 03/10/21 08:00 03/10/21 08:38 03/10/21 08:00 03/10/21 08:00 03/10/21 08:00 Laboratory Results - last 24 hr 03/10/21 04:00: WBC 11.9 H, RBC 6.89 H, Hgb 17.0, Hct 53.9 H, MCV 78.3 L, MCH 24.7 L, MCHC 31.5 L, RDW 16.1, Plt Count 199, MPV 8.9, Neut % (Auto) 70.2, Lymph % (Auto) 19.3, [place] % (Auto) 7.6, Eos % (Auto) 2.6, Baso % (Auto) 0.4, Neut # (Auto) 8.4 H, Lymph # (Auto) 2.3, [place] # (Auto) 0.9, Eos # (Auto) 0.3, Baso # (Auto) 0.0 03/10/21 04:00: Sodium 138, Potassium 3.5, Chloride 103, Carbon Dioxide 30, Anion Gap 8.5, BUN 28 H, Creatinine 1.20, Estimated Creat Clear 79, Estimated GFR 62, Est GFR ( Amer) 76, Glucose 149 H D, Calcium 8.2 L I & O for Last 24 hours: Intake & Output 03/07/21 03/08/21 03/09/21 03/10/21 11:59 11:59 11:59 11:59 Intake Total 320 / 320 1260 / 1260 960 / 960 116 / 116 Output Total 1750 / 1750 3230 / 3230 900 / 900 Balance -1430 / -1430 -1969 / -1970 60 / 60 116 / 116 Weight 184 lb 6 oz 185 lb 181 lb 2 oz 181 lb 2 oz Microbiology Reports for the Last 24 Hours: Microbiology 03/07/21 03:21 Blood Blood Culture - Preliminary NO GROWTH AFTER 48 HOURS 03/07/21 03:21 Blood Blood Culture - Preliminary NO GROWTH AFTER 48 HOURS - *Routine Respiratory Exam Present: CTA bilaterally - *Routine Cardiovascular Exam Present: RRR, tachycardia, irregularly irregular - *Routine Extremities Exam Absent: cyanosis, clubbing, edema - *Routine Neurological Exam Present: alert, oriented X3 Progress Note: A&P (1) Acute systolic (congestive) heart failure Status: Acute Assessment and plan: Continue diuretic therapy with Lasix and spironolactone. Patient is on beta-marko and digoxin therapy with plans to start Entresto later tonight (2) Acute respiratory failure Status: Resolved (3) Atrial fibrillation with rapid ventricular response Status: Acute Assessment and plan: Continue metoprolol We will start Entresto later tonight Continue IV amiodarone with plans for cardioversion later today as patient is on Eliquis therapy for the last 2 to 3 months. Start PO amiodarone 200 mg BID tonight prior to IV completion. (4) Graves disease Status: Acute (5) Hyperthyroidism Status: Acute Assessment and plan: Recently finished radioactive iodine therapy Patient is on propylthiouracil therapy along with beta-marko therapy (6) Obstructive sleep apnea Status: Acute (7) Cardiomyopathy Status: Acute Assessment and plan: Continue beta-marko therapy with plans to start Entresto later today Continue spironolactone, Lasix and digoxin therapy Assessment and Plan for All Diagnoses:: Plans for cardioversion later today and continuing Eliquis therapy. LifeVest has been ordered with approval pending Further recommendations to follow pending above results
[2021-03-10 09:23] LABS: Thyroid Stimulating Hormone < 0.02 uIU/mL (0.465-4.68)
--- NOTE | 2021-03-10 10:21 | P.PCN_ITS ---
[facility] Cardioversion Date: 03/10/21 Provider:: CIRO Conde Procedure Performed:: Synchronized electrical cardioversion Diagnosis:: Atrial fibrillation with rapid ventricular response Procedure Summary:: Informed consent was obtained, anesthesia provided sedation and patient received a single synchronized 200 J shock which converted him from atrial fibrillation to a bradycardic rhythm which appears to be junctional initially then sinus in the 40s to 50s. Patient tolerated the procedure without complications. Complications:: None Conculsion:: Successful electrical cardioversion from atrial fibrillation to sinus rhythm routine post op care
--- NOTE | 2021-03-10 10:45 | P.PN_ITS ---
[facility] Anesthesia Checklist - Patient Identification Patient Identification: Arm Band - Structural Data Admitted From: Home Planned Operative Procedure/s: Cardioversion Consent for Planned Operative Procedure(s) Verified: Yes - NPO Status Verified Time NPO: 00:00 - Airway Assessment C-Spine Mobility Assessed: Yes TMJ Mobility Assessed: Yes Dentition: Poor Dentition - Neurological Assessment Level of Consciousness: Awake Hx Seizures: No Numbness or tingling in extremities: No - Anesthesia Plan Anesthesia Risk discussed: Yes Anesthesia Plan: Verified ASA Class: III Anesthesia Type: MAC [facility] History I have reviewed the patient's past medical history: Yes Medical History: Reports:: Atrial Fibrillation, Congestive Heart Failure, Hypertension Denies:: Cancer, Diabetes Mellitus Type 1, Diabetes Mellitus Type 2, MRSA *Have you ever received a pneumonia vaccine?: Yes *Have you received a flu vaccine this season?: Yes Other Medical History: Reports: Thyroid Disease (Hyperthyroidism) Anesthesia experience/problems:: None Laterality Cases: Bilateral: Other Other Surgeries: Yes: Angiogram Amputation: No Fractures: No - *Social History Last grade of school completed: Some college Smoking Status: Never smoker Alcohol Intake: never Substance Use Type: denies use *Occupational Status:: retired Housing: house Household Members: spouse, family, children *Travel in the last 8 weeks: None Family Hx:: Hyperlipidemia, Hypertension, Thyroid Disorder
--- NOTE | 2021-03-10 11:01 | P.PN_ITS ---
Internal Medicine - PN: Subj *Date: 03/10/21 *Time: 11:01 Exam Vital signs and Labs for Last 24 Hours: Temp Pulse Resp BP Pulse Ox 98.0 F 53 L 18 129/88 97 03/10/21 08:00 03/10/21 10:47 03/10/21 10:47 03/10/21 10:47 03/10/21 10:47 Laboratory Results - last 24 hr 03/10/21 04:00: WBC 11.9 H, RBC 6.89 H, Hgb 17.0, Hct 53.9 H, MCV 78.3 L, MCH 24.7 L, MCHC 31.5 L, RDW 16.1, Plt Count 199, MPV 8.9, Neut % (Auto) 70.2, Lymph % (Auto) 19.3, [place] % (Auto) 7.6, Eos % (Auto) 2.6, Baso % (Auto) 0.4, Neut # (Auto) 8.4 H, Lymph # (Auto) 2.3, [place] # (Auto) 0.9, Eos # (Auto) 0.3, Baso # (Auto) 0.0 03/10/21 04:00: Sodium 138, Potassium 3.5, Chloride 103, Carbon Dioxide 30, Anion Gap 8.5, BUN 28 H, Creatinine 1.20, Estimated Creat Clear 79, Estimated GFR 62, Est GFR ( Amer) 76, Glucose 149 H D, Calcium 8.2 L 03/10/21 04:00: TSH < 0.02 L I & O for Last 24 hours: Intake & Output 03/07/21 03/08/21 03/09/21 03/10/21 23:59 23:59 23:59 23:59 Intake Total 1040 / 1040 1140 / 1260 476 / 476 Output Total 4800 / 4800 380 / 380 700 / 700 Balance -3760 / -3760 760 / 880 -224 / -224 Weight 84 kg 83.915 kg 82.157 kg 82.157 kg Microbiology Reports for the Last 24 Hours: Microbiology 03/07/21 03:21 Blood Blood Culture - Preliminary NO GROWTH AFTER 48 HOURS 03/07/21 03:21 Blood Blood Culture - Preliminary NO GROWTH AFTER 48 HOURS Assessment and Plan (1) Acute systolic (congestive) heart failure Status: Acute Category: Medical Code(s): I50.21 - Acute systolic (congestive) heart failure (2) Acute respiratory failure Status: Resolved Qualifiers: Respiratory failure complication: hypercapnia Qualified Code(s): J96.02 - Acute respiratory failure with hypercapnia Category: Medical Code(s): J96.00 - Acute respiratory failure, unspecified whether with hypoxia or hypercapnia (3) Atrial fibrillation with rapid ventricular response Status: Acute Category: Medical Code(s): I48.91 - Unspecified atrial fibrillation (4) Graves disease Status: Acute Category: Medical Code(s): E05.00 - Thyrotoxicosis with diffuse goiter without thyrotoxic crisis or storm (5) Hyperthyroidism Status: Acute Category: Medical Code(s): E05.90 - Thyrotoxicosis, unspecified without thyrotoxic crisis or storm (6) Obstructive sleep apnea Status: Acute Category: Medical Code(s): G47.33 - Obstructive sleep apnea (adult) (pediatric) (7) Cardiomyopathy Status: Acute Category: Medical Code(s): I42.9 - Cardiomyopathy, unspecified The patient's infection will respond to the chosen ABx?: Yes Is the patient receiving the right drug, dose, and route?: Yes Could a more targeted ABx be ordered?: No
--- NOTE | 2021-03-10 11:10 | SUR.PHASEII ---
1009 XIMENA Rogers at bedside . defibrillator pads placed on patient. 1013 Dr. Sarkar, [facility]. [place]. at bedside timeout completed at this time, 1015 patient synchronized cardioversion, 200 j afib rate 120 prior to shock 1016 patient in sinus rogers rate 47 I remained at bedside until 1047, monitoring the patient present at bedside at 1050
--- NOTE | 2021-03-10 12:52 | PC.NURSE ---
Addendum entered by Zahraa Orellana RN 03/10/21 18:39: PT WAS GIVEN A PO DOSE OF AMIODARONE AT 1700. DRIP WAS TURNED OFF AT 1740. PCP STATED PT COULD BE TRANSFERRED OUT OF STEP DOWN. Original Note: PT IS RESTING IN BED WITH FAMILY AT BEDSIDE. ALERT AND ORIENTED X4. PT WAS REALLY ANXIOUS THIS MORNING. PT TOLERATED CARDIOVERSION WELL. PT DID HAVE SOME USSUES WITH WAKING UP AFTER SEDATION. ALL VSS. SINUS KIMBERLY ON THE MONITOR. LUNG SOUNDS CLEAR. ABDOMEN SOFT/NON TENDER WITH ACTIVE BOWEL SOUNDS. SKIN C/D/I. WILL CONTINUE TO MONITOR.
--- NOTE | 2021-03-10 18:17 | PC.NURSE ---
TURN O2 OFF AT THE WALL. PT IS ON RA. O2 IS ON STBY.
[2021-03-11] VITALS: BP 148/93; PULSE 60; PULSE 64; RESP 16; TEMP 36.7; O2SAT 99
[2021-03-11 04:00] VITALS: BP 146/96; PULSE 59; PULSE 60; RESP 16; TEMP 36.7; O2SAT 96
[2021-03-11 05:00] VITALS: BMI 27.5
--- NOTE | 2021-03-11 06:14 | PC.NURSE ---
Patient HR remained WNL throughout shift. Patient shows no s/s of acute distress, call light within reach, bed at lowest level for safety; will continue to monitor.
--- NOTE | 2021-03-11 07:09 | HMH.ACPN2 ---
Internal Medicine - PN: Subj *Date: 03/11/21 *Time: 07:09 Interval history: Patient was successfully cardioverted yesterday and has remained in sinus rhythm and at times sinus bradycardia. He reports feeling better this morning with better peace of mind . He denies shortness of breath or chest pain. He has been ambulating in his room without difficulty Exam Vital signs and Labs for Last 24 Hours: Temp Pulse Resp BP Pulse Ox 98.0 F 59 L 16 146/96 H 96 03/11/21 04:00 03/11/21 04:00 03/11/21 04:00 03/11/21 04:00 03/11/21 04:00 Laboratory Results - last 24 hr 03/10/21 04:00: TSH < 0.02 L I & O for Last 24 hours: Intake & Output 03/08/21 03/09/21 03/10/21 03/11/21 11:59 11:59 11:59 11:59 Intake Total 1260 / 1260 960 / 960 116 / 116 1261 / 1261 Output Total 3230 / 3230 900 / 900 900 / 900 Balance -1970 / -1969 60 / 60 116 / 116 361 / 361 Weight 185 lb 181 lb 2 oz 181 lb 2 oz 181 lb 8 oz - Constitutional no acute distress - *Routine Respiratory Exam Present: CTA bilaterally - *Routine Cardiovascular Exam Present: RRR Assessment and Plan (1) Acute systolic (congestive) heart failure Status: Acute Category: Medical Code(s): I50.21 - Acute systolic (congestive) heart failure (2) Acute respiratory failure Status: Resolved Qualifiers: Respiratory failure complication: hypercapnia Qualified Code(s): J96.02 - Acute respiratory failure with hypercapnia Category: Medical Code(s): J96.00 - Acute respiratory failure, unspecified whether with hypoxia or hypercapnia (3) Atrial fibrillation with rapid ventricular response Status: Acute Category: Medical Code(s): I48.91 - Unspecified atrial fibrillation (4) Graves disease Status: Acute Category: Medical Code(s): E05.00 - Thyrotoxicosis with diffuse goiter without thyrotoxic crisis or storm (5) Hyperthyroidism Status: Acute Category: Medical Code(s): E05.90 - Thyrotoxicosis, unspecified without thyrotoxic crisis or storm (6) Obstructive sleep apnea Status: Acute Category: Medical Code(s): G47.33 - Obstructive sleep apnea (adult) (pediatric) (7) Cardiomyopathy Status: Acute Qualifiers: Cardiomyopathy type: dilated Qualified Code(s): I42.0 - Dilated cardiomyopathy Category: Medical Code(s): I42.9 - Cardiomyopathy, unspecified - Assessment and plan all Dx Assessment and Plan for all problems:: 1. Patient is awaiting LifeVest approval 2. Await cardiology recommendations on medication regimen in addition to his amiodarone. Patient may possibly be discharged today.
--- NOTE | 2021-03-11 07:13 | HMH.DCSUM ---
General - General Admission date:: 03/07/21 Discharge date: 03/11/21 HPI HPI: 55-year-old male with hyperthyroidism and atrial fibrillation presented to the emergency department after acute onset of shortness of breath at home yesterday evening. Patient was attending a family event when he began to feel short of breath. As the evening progressed his dyspnea worsened and patient had unrelenting cough. He denies chest pain. Patient had run out of furosemide 48 hours prior. Earlier in the week patient had also seen local cardiology were medication adjustments were made to his rate control regimen. When patient's dyspnea progressed to the point where patient was afraid he presented to the emergency department. Patient was found to be in acute respiratory failure from acute congestive heart failure. Patient was placed on BiPAP and diuresed with Lasix. Patient was admitted to the stepdown unit due to his need for IV Cardizem drip for his A. fib with RVR and BiPAP for respiratory failure. Since administration of Lasix patient has had over 1700 mL of urine output. Patient's pulse rate is in the low 100s on a Cardizem drip. Patient reports improvement with diuresis. During interview patient was taken off BiPAP and placed on nasal cannula at 2 L/min which has maintained his O2 sats between 93 and 97%. Past medical history is significant for hospitalization in late December when patient presented with atrial fibrillation and hyperthyroidism. At that time patient required high doses of both metoprolol tartrate and diltiazem to keep his heart rate below 100. Patient was also started on propylthiouracil 150 mg 3 times daily at that time. Since that time patient is undergone periodic adjustments to medications to control his rate as his hyperthyroidism has become under better control. He is seeing endocrinology in [place] and current dose of propylthiouracil is 100 mg each morning, 50 mg in the afternoon, and 50 mg at night. Patient was treated with 10 days of SSKI by his ceramic sprayer. Last free T4 (performed on admission) and free T3 (from February 10) are in a normal range. Patient believes he has been told by his ceramic sprayer he will need to have thyroidectomy. Hospital Course Hospital Course: Patient was admitted and initially placed on a Cardizem drip and his rate decreased to the 90s. Patient was transitioned to his oral regimen of metoprolol ER and oral Cardizem. Metoprolol ER was increased up to 200 mg daily. He was also continued on digoxin. Repeat echocardiogram showed an ejection fraction of approximately 15%. Patient was taken to the [facility]. He did not have any obstructive coronary disease. Decision was made to proceed with cardioversion after loading with amiodarone. Patient had successful cardioversion with return of sinus rhythm. He is remained on amiodarone and will continue this at discharge. Due to patient's dilated cardiomyopathy from his thyroid disease patient will need a LifeVest. Patient has Graves' disease. Patient is on propylthiouracil and free T3 and free T4 have normalized. I did speak with the patient's ceramic sprayer while patient was hospitalized who agreed that amiodarone was an option because the patient is on PTU. Patient will continue propylthiouracil for his Graves' disease. Ultimately he needs thyroidectomy if he recovers from his cardiomyopathy. Patient has hypertension. During hospitalization his ARB was increased but patient has also been transitioned to Entresto. Entresto will be increased as tolerated Objective Vital signs: Temp Pulse Resp BP Pulse Ox 98.0 F 59 L 16 146/96 H 96 03/11/21 04:00 03/11/21 04:00 03/11/21 04:00 03/11/21 04:00 03/11/21 04:00 no acute distress - *Routine Respiratory Exam Present: CTA bilaterally - *Routine Cardiovascular Exam Present: RRR Results Labs on day of discharge: Labs from last 24 hours 03/10/21 04:00 TSH < 0.0
[2021-03-11 08:00] VITALS: BP 126/78; PULSE 60; PULSE 68; RESP 18; TEMP 36.8; O2SAT 98
[2021-03-11 08:07] LABS: Basophils # 0.1 K/mm3 (0-0.2); Eosinophils # 0.3 K/mm3 (0.0-0.4); Eosinophils % 2.7 % (0.1-12.0); Hematocrit 54.7 % (42.0-52.0); Hemoglobin 17.3 g/dL (14.1-18.0); Lymphocytes # 2.7 K/mm3 (0.7-4.5); Lymphocytes % 24.5 % (10-50); Mean Corpuscular HGB Conc 31.7 g/dL (31.8-35.4); Mean Corpuscular Hemoglobin 24.5 pg (27.0-31.2); Mean Corpuscular Volume 77.4 fl (80-94); Mean Platelet Volume 8.6 fl (7.4-10.4); Monocytes # 0.6 K/mm3 (0.1-1.0); Monocytes % 5.1 % (1.7-9.3); Neutrophils # 7.5 K/mm3 (1.8-7.8); Neutrophils % 66.7 % (37.0-80.0); Platelet Count 180 K/mm3 (142-424); Red Cell Distribution Width 16.1 % (11.5-17.5); White Blood Count 11.2 K/mm3 (4.8-10.8)
[2021-03-11 08:08] LABS: Red Blood Count 7.06 M/mm3 (4.60-6.20)
[2021-03-11 08:34] LABS: Chloride 104 mmol/L (98-107); Sodium 136 mmol/L (136-145)
[2021-03-11 08:35] LABS: Potassium 3.8 mmoL/L (3.5-5.1)
[2021-03-11 08:37] LABS: Blood Urea Nitrogen 18 mg/dl (9-20); Creatinine Clearance Estimated 86 mL/min (50-200); Estimated Glomerular Filt Rate 69 ml/min (>60); GFR (African American) 83 ML/MIN (>60)
[2021-03-11 08:38] LABS: Anion Gap 10.8 mEq/L (5-15); Calcium 8.4 mg/dl (8.4-10.2); Carbon Dioxide 25 mmol/L (22.0-30.0); Glucose 131 mg/dl (74-100)
[2021-03-11 08:43] VITALS: PULSE 68
--- NOTE | 2021-03-11 09:35 | HMH.PNCARD ---
Subjective Date: 03/11/21 Time: 09:00 Principal diagnosis: Atrial fib Interval history: 55-year-old male admitted to [facility] with atrial fibrillation RVR. Patient underwent cardioversion yesterday. Patient remains in sinus bradycardia to sinus rhythm with a heart rate of 55 to 68 bpm. Patient is on Eliquis due to atrial fibrillation. Patient denies chest pain, tightness or pressure. Patient denies shortness of breath. No swelling of the lower extremities noted. Repeated limited echocardiogram reveals EF 15 to 20% with moderate mitral and mild tricuspid regurgitation. Patient did undergo Lexiscan Myoview stress test which revealed EF 15% with severe left ventricular global hypokinesis. Patient did undergo left heart catheterization during this visit. EF 20%. LifeVest has been in process for approval due to ischemic cardiomyopathy. Still awaiting approval for LifeVest. Overall patient states he is feeling better. Denies palpitations or dizziness. Patient was switched to amiodarone 200 mg p.o. twice daily last evening. Patient is tolerating the amiodarone with no difficulty. Patient is currently on metoprolol 200 mg p.o. for heart rate control. We will continue the metoprolol at 200 mg daily until follow-up in cardiology office. We will stop digoxin. Discussed plan of care with Dr. Sarkar. Orders were noted from Dr. Sarkar. DC digoxin. Continue metoprolol 200 mg p.o. as indicated for heart rate control. Continue amiodarone 200 mg p.o. twice daily until follow-up with cardiology in 1 week. LifeVest is pending at this time for approval. Patient does have ischemic cardiomyopathy in which LifeVest is indicated. We will notify patient if LifeVest is approved by insurance. Patient to follow-up with cardiology in 1 week or sooner if signs and symptoms persist. Thank you for allowing cardiology to participate in the care of this patient. Exam Vital signs and Labs for Last 24 Hours: Temp Pulse Resp BP Pulse Ox 98.3 F 68 18 126/78 98 03/11/21 08:00 03/11/21 08:43 03/11/21 08:00 03/11/21 08:00 03/11/21 08:00 Laboratory Results - last 24 hr 03/11/21 07:46: WBC 11.2 H, RBC 7.06 H, Hgb 17.3, Hct 54.7 H, MCV 77.4 L, MCH 24.5 L, MCHC 31.7 L, RDW 16.1, Plt Count 180, MPV 8.6, Neut % (Auto) 66.7, Lymph % (Auto) 24.5, [place] % (Auto) 5.1, Eos % (Auto) 2.7, Baso % (Auto) 1.0, Neut # (Auto) 7.5, Lymph # (Auto) 2.7, [place] # (Auto) 0.6, Eos # (Auto) 0.3, Baso # (Auto) 0.1 03/11/21 07:46: Sodium 136, Potassium 3.8, Chloride 104, Carbon Dioxide 25, Anion Gap 10.8, BUN 18 D, Creatinine 1.10, Estimated Creat Clear 86, Estimated GFR 69, Est GFR ( Amer) 83, Glucose 131 H, Calcium 8.4 I & O for Last 24 hours: Intake & Output 03/08/21 03/09/21 03/10/21 03/11/21 23:59 23:59 23:59 23:59 Intake Total 1140 / 1260 476 / 476 1211 / 1211 530 / 530 Output Total 380 / 380 700 / 700 900 / 900 Balance 760 / 880 -224 / -224 1211 / 1211 -370 / -370 Weight 185 lb 181 lb 2 oz 181 lb 2 oz 181 lb 8 oz - Constitutional no acute distress, average body habitus, cooperative - *Routine HEENT Exam Head: Present: normocephalic ENT: Present: mucous membranes moist - *Routine Neck Exam Present: supple, full ROM, normal carotid upstroke. Absent: JVD, carotid bruit, lymphadenopathy - *Routine Respiratory Exam Present: accessory muscle use, CTA bilaterally. Absent: wheezes, crackles - *Routine Cardiovascular Exam Present: RRR, Normal S1, Normal S2, bradycardia. Absent: murmur - *Routine Abdominal Exam Present: soft, normoactive bowel sounds. Absent: distended, rebound, guarding - *Routine Extremities Exam Present: full ROM, pulses intact, normal capillary refill. Absent: edema - *Routine Skin Exam Present: intact, dry, warm. Absent: erythema - *Routine Neurological Exam Present: oriented X3, moving all extremities, normal speech Progress Note: A&P (1) Acute systolic (congestive) heart failure Status: Acute
[2021-03-11 11:09] VITALS: BP 157/89; PULSE 59; RESP 20; TEMP 37.1; O2SAT 96
--- NOTE | 2021-03-11 11:42 | PC.NURSE ---
Pt alert and oriented and able to make needs known. Pt is awaiting approval for life vest at this time. CB in reach.
[2021-03-11 12:03] VITALS: PULSE 50
[2021-03-21 11:59] LABS: POC Glucose,Bedside 262 (70-110)
== END 2021-03-11 14:50 | disposition home or self-care (01) | DRG 286 ==
LOC: ER 02:04 → 2ND 03:42
PROVIDERS: Internal Medicine; Physician Assistant; Admitting Provider Emergency Medicine; Emergency Provider Student in an Organized Health Care Education/Training Program; PCP Family Medicine; Visit Provider Family Medicine
PROC: 4A023N7 Measurement of Cardiac Sampling and Pressure, Left Heart, Percutaneous Approach (ICD-10-PCS; principal; 2021-03-09 12:30)
PROC: 5A2204Z Restoration of Cardiac Rhythm, Single (ICD-10-PCS; principal; 2021-03-10 11:30)
DX: I50.21 Acute systolic (congestive) heart failure (principal); J96.02 Acute respiratory failure with hypercapnia; I11.0 Hypertensive heart disease with heart failure; I48.91 Unspecified atrial fibrillation; E05.00 Thyrotoxicosis with diffuse goiter without thyrotoxic crisis or storm; G47.33 Obstructive sleep apnea (adult) (pediatric); I42.0 Dilated cardiomyopathy; I25.5 Ischemic cardiomyopathy; Z79.01 Long term (current) use of anticoagulants
CPT/HCPCS: 36415; 71045; 78452; 80048; 80053; 80162; 81001; 82803; 82962; 83605; 83880; 84439; 84443; 84481; 84484; 85007; 85025; 87040; 92960; 93005; 93017; 93306; 93308; 93458; 96365; 96366; 96367; 96375; 99152; 99284; A9502; C1725; C1769; J0282; J1644; J2405; J2785; J7060; Q9967; U0003

== ENCOUNTER → 2021-04-21 12:37 | Outpatient (CLI) | payer BC, SELFPAY ==
[2021-04-21 13:24] LABS: Chloride 103 mmol/L (98-107); Potassium 5.2 mmoL/L (3.5-5.1); Sodium 137 mmol/L (136-145)
[2021-04-21 13:26] LABS: Blood Urea Nitrogen 61 mg/dl (9-20); Estimated Glomerular Filt Rate 42 ml/min (>60); GFR (African American) 51 ML/MIN (>60)
[2021-04-21 13:27] LABS: Alanine Aminotransferase 51 U/L (12-78); Albumin Level 4.7 g/dl (3.5-5.0); Alkaline Phosphatase 71 U/L (38-126); Anion Gap 14.2 mEq/L (5-15); Aspartate Amino Transferase 39 U/L (17-59); Bilirubin,Direct 0.6 mg/dl (0.0-0.4); Bilirubin,Indirect 0.1 mg/dL (0.0-0.9); Bilirubin,Total 0.7 mg/dl (0.2-1.3); Bilirubin,Unconjugated 0.1 mg/dL (0.0-1.1); Calcium 9.4 mg/dl (8.4-10.2); Carbon Dioxide 25 mmol/L (22.0-30.0); Glucose 108 mg/dl (74-100); Total Protein,Serum 7.8 g/dl (6.3-8.2)
[2021-04-21 13:45] LABS: T4 (Thyroxine) 10.9 ug/dl (5.53-11.0); Triiodothryronine (T3) Uptake 37 % (23.5-40.5)
--- NOTE | 2021-04-21 13:50 | CA_ITS ---
APPROVED REPORT EXAM: Comprehensive 2D, Doppler, and color-flow Echocardiogram [facility] Tender: Xi Granger RT(R) Ht: 5 ft 8 in Wt: 168lbs BSA: 1.90 BP: 132/70 mmHg Indications: patient wearing lifevest currently, EF check and followup to echo 03/07/2021 EF 15-20%. CAD, bradycardia, CHF, AFIB, CM 2D Dimensions LVEF (Torres's) 57.90 % M: 52 - 72 LV Volume 99.70 mL M: 62 - 150 LV Volume Index 52.75 mL/m2 M: 34 - 74 M-Mode Dimensions RVDd 2.52 cm (0.9-2.6) LVDd 5.86 cm (3.5-5.7) LVDs 4.96 cm (3.5-5.7) IVSd 1.02 cm (0.6-1.1) PWd 0.71 cm (0.6-1.1) EF (Teich) 31.90% FS 15.40% EDV (Teich) 170.50 mL ESV (Teich) 116.10 mL Conclusion 1. Limited echocardiogram was performed to evaluate left ventricular systolic function. 2. The left ventricle is normal size, visually estimated ejection fraction 40 to 45% with no regional wall motion abnormality. 3. No significant pericardial effusion noted. Electronically signed by : Dipak Bradford, 04/21/2021 14:32:14
[2021-04-21 13:59] LABS: Thyroid Stimulating Hormone < 0.02 uIU/mL (0.465-4.68)
== END ==
PROVIDERS: PCP Family Medicine; Visit Provider Physician Assistant
DX: I50.9 Heart failure, unspecified (principal); I42.9 Cardiomyopathy, unspecified; Z79.899 Other long term (current) drug therapy
CPT/HCPCS: 36415; 80048; 80076; 84436; 84443; 84479; 93308

== ENCOUNTER → 2021-04-28 10:13 | Outpatient (CLI) | payer BC, SELFPAY ==
[2021-04-28 11:07] LABS: Anion Gap 12.9 mEq/L (5-15); Blood Urea Nitrogen 56 mg/dl (9-20); Calcium 9.5 mg/dl (8.4-10.2); Carbon Dioxide 31 mmol/L (22.0-30.0); Chloride 99 mmol/L (98-107); Estimated Glomerular Filt Rate 39 ml/min (>60); GFR (African American) 47 ML/MIN (>60); Glucose 108 mg/dl (74-100); Potassium 4.9 mmoL/L (3.5-5.1); Sodium 138 mmol/L (136-145)
== END ==
PROVIDERS: Visit Provider Internal Medicine Cardiovascular Disease
DX: I10 Essential (primary) hypertension (principal); E05.00 Thyrotoxicosis with diffuse goiter without thyrotoxic crisis or storm; I25.10 Atherosclerotic heart disease of native coronary artery without angina pectoris; I42.9 Cardiomyopathy, unspecified; I50.20 Unspecified systolic (congestive) heart failure; I51.9 Heart disease, unspecified; R00.1 Bradycardia, unspecified; R94.31 Abnormal electrocardiogram [ECG] [EKG]
CPT/HCPCS: 36415; 80048

== ENCOUNTER → 2021-05-05 12:23 | Outpatient (CLI) | payer BC, SELFPAY ==
[2021-05-05 13:07] LABS: Chloride 99 mmol/L (98-107); Sodium 141 mmol/L (136-145)
[2021-05-05 13:08] LABS: Potassium 4.6 mmoL/L (3.5-5.1)
[2021-05-05 13:10] LABS: Blood Urea Nitrogen 52 mg/dl (9-20); Estimated Glomerular Filt Rate 39 ml/min (>60); GFR (African American) 47 ML/MIN (>60)
[2021-05-05 13:11] LABS: Anion Gap 13.6 mEq/L (5-15); Calcium 9.7 mg/dl (8.4-10.2); Carbon Dioxide 33 mmol/L (22.0-30.0); Glucose 110 mg/dl (74-100)
[2021-05-05 13:26] LABS: Free T4 (Free Thyroxine) 1.63 ng/dl (0.78-2.19)
[2021-05-05 13:29] LABS: T4 (Thyroxine) 11.5 ug/dl (5.53-11.0)
[2021-05-05 13:42] LABS: Thyroid Stimulating Hormone 0.02 uIU/mL (0.465-4.68)
[2021-05-06 08:14] LABS: Triiodothyronine (T3) Free 2.7 pg/mL (2.0-4.4)
== END ==
PROVIDERS: Visit Provider Internal Medicine Cardiovascular Disease
DX: R06.00 Dyspnea, unspecified (principal); I48.91 Unspecified atrial fibrillation; I25.10 Atherosclerotic heart disease of native coronary artery without angina pectoris; I11.0 Hypertensive heart disease with heart failure; I50.20 Unspecified systolic (congestive) heart failure; I50.23 Acute on chronic systolic (congestive) heart failure; R79.89 Other specified abnormal findings of blood chemistry; R94.31 Abnormal electrocardiogram [ECG] [EKG]; J90 Pleural effusion, not elsewhere classified
CPT/HCPCS: 36415; 80048; 84436; 84439; 84443; 84481

== ENCOUNTER → 2021-05-19 10:27 | Outpatient (CLI) | payer BC, SELFPAY ==
[2021-05-19 11:07] LABS: Chloride 104 mmol/L (98-107); Sodium 141 mmol/L (136-145)
[2021-05-19 11:08] LABS: Potassium 4.4 mmoL/L (3.5-5.1)
[2021-05-19 11:10] LABS: Blood Urea Nitrogen 30 mg/dl (9-20); Estimated Glomerular Filt Rate 52 ml/min (>60); GFR (African American) 63 ML/MIN (>60)
[2021-05-19 11:11] LABS: Anion Gap 9.4 mEq/L (5-15); Carbon Dioxide 32 mmol/L (22.0-30.0); Glucose 110 mg/dl (74-100)
== END ==
PROVIDERS: Physician Assistant; Visit Provider Internal Medicine Cardiovascular Disease
DX: I11.0 Hypertensive heart disease with heart failure; I25.10 Atherosclerotic heart disease of native coronary artery without angina pectoris; I48.91 Unspecified atrial fibrillation; I50.9 Heart failure, unspecified; R94.31 Abnormal electrocardiogram [ECG] [EKG]
CPT/HCPCS: 36415; 80048

== ENCOUNTER 2021-08-05 21:07 | Emergency (ER) | payer BC, SELFPAY ==
[2021-08-05 21:08] VITALS: BP 210/98; PULSE 61; RESP 16; TEMP 36.6; O2SAT 99; BMI 26.2
--- NOTE | 2021-08-05 21:15 | ECG_ITS ---
APPROVED REPORT Exam: Resting ECG HR:58 bpm ECG Measurements Heart Rate 58 AXES ME 130 P 46 QRSd 98 QRS -8 QT 450 T 26 QTc 441 Conclusion Sinus bradycardia Old septal changes Abnormal ECG Electronically signed by : Christophe Mary MD 08/06/2021 08:20:48
[2021-08-05 21:21] VITALS: BMI 26.2
--- NOTE | 2021-08-05 21:22 | XR_ITS ---
PROCEDURE INFORMATION: Exam: XR Chest Exam date and time: 08/05/2021 9:22 PM Age: 56 years old Clinical indication: Other: Weakness; Prior surgery; Surgery date: Post-operative (0-2 days); Surgery type: Thyroid surgery for graves disease TECHNIQUE: Imaging protocol: XR of the chest. Views: 2 views. COMPARISON: CR XR CHEST PORTABLE 03/07/2021 1:59 AM FINDINGS: Lungs: Lungs are adequately inflated without focal consolidation. 8 mm nodule within the left upper lobe; unchanged. Pleural spaces: No pneumothorax or pleural effusion. Heart/Mediastinum: Cardiomegaly. Vasculature: Calcific atherosclerosis of the aorta. Bones/joints: No displaced fracture. Multilevel degenerative changes spine. Other findings: Focus of mineralized densities project over the paramidline of the cervical spine and may represent calcific over for sclerosis of the carotid arteries. IMPRESSION: 1. No acute cardiopulmonary process. 2. Other chronic findings as above.
[2021-08-05 21:30] VITALS: BP 229/114; PULSE 59; O2SAT 98
[2021-08-05 21:31] LABS: Basophils # 0.1 K/mm3 (0-0.2); Basophils % 0.6 % (0.1-2.0); Eosinophils # 0.2 K/mm3 (0.0-0.4); Eosinophils % 1.5 % (0.1-12.0); Hematocrit 48.4 % (42.0-52.0); Hemoglobin 14.8 g/dL (14.1-18.0); Lymphocytes # 2.5 K/mm3 (0.7-4.5); Lymphocytes % 22.3 % (10-50); Mean Corpuscular HGB Conc 30.5 g/dL (31.8-35.4); Mean Corpuscular Hemoglobin 27.6 pg (27.0-31.2); Mean Corpuscular Volume 90.2 fl (80-94); Mean Platelet Volume 7.8 fl (7.4-10.4); Monocytes # 0.7 K/mm3 (0.1-1.0); Monocytes % 5.9 % (1.7-9.3); Neutrophils # 7.7 K/mm3 (1.8-7.8); Neutrophils % 69.6 % (37.0-80.0); Platelet Count 268 K/mm3 (142-424); Red Blood Count 5.36 M/mm3 (4.60-6.20); Red Cell Distribution Width 14.1 % (11.5-17.5); White Blood Count 11.1 K/mm3 (4.8-10.8)
[2021-08-05 21:40] LABS: Alanine Aminotransferase 35 U/L (12-78); Albumin/Globulin Ratio 1.4 (1.1-1.8); Alkaline Phosphatase 59 U/L (38-126); Anion Gap 11.8 mEq/L (5-15); Aspartate Amino Transferase 36 U/L (17-59); Bilirubin,Total 0.3 mg/dl (0.2-1.3); Blood Urea Nitrogen 32 mg/dl (9-20); Carbon Dioxide 31 mmol/L (22.0-30.0); Chloride 105 mmol/L (98-107); Creatinine Clearance Estimated 84 mL/min (50-200); Estimated Glomerular Filt Rate 69 ml/min (>60); GFR (African American) 83 ML/MIN (>60); Globulin 2.9 g/dL (1.3-3.2); Glucose 105 mg/dl (74-100); Potassium 3.8 mmoL/L (3.5-5.1); Sodium 144 mmol/L (136-145); Total Protein,Serum 6.9 g/dl (6.3-8.2)
[2021-08-05 21:45] LABS: C-Reactive Protein 17.2 mg/L (0-4)
[2021-08-05 21:55] LABS: NT Pro Brain Natriuretic Pep. 120 pg/mL (0-125)
[2021-08-05 21:57] LABS: Erythrocyte Sedimentation Rate 2 mm/hr (0-20); Troponin I < 0.01 ng/ml (0.00-0.034)
[2021-08-05 21:59] LABS: Procalcitonin 0.265 ng/mL (0.0-2.0); T4 (Thyroxine) 11.4 ug/dl (5.53-11.0)
--- NOTE | 2021-08-05 22:11 | HMH.EDANX ---
ED Disposition Clinical Impression: Acute anxiety, Hypertensive emergency Disposition: Home, Self-Care Condition on Discharge: Good Instructions: Anxiety Disorders Additional Instructions: use meds and call pcp for follow up Referrals: Christophe Kumar MD [Primary Care Provider] - - Critical Care Critical Care Time: No Attestation: On 08/05/21, the high probability of a clinically significant, sudden or life threatening deterioration of the following system(s) required my full and direct attention, intervention and personal management. The time I documented below is in addition to time spent performing reported procedures but includes the following listed in this critical care notation. Medical Decision Making - Medical Records Medical records reviewed: Yes: I reviewed the patient's medical records. - Max Inquiry Pt receiving controlled substance: No Vital Signs: 08/05/21 21:08 08/05/21 21:30 08/05/21 23:26 Temperature 97.8 F Temperature Source Oral Pulse Rate 59 L Pulse Rate [Right] 61 Respiratory Rate 16 Blood Pressure 229/114 H 200/98 H Blood Pressure [Right Arm] 210/98 H Blood Pressure Mean [Right Arm] 135 Blood Pressure Source Manual Cuff/ Auscultation Blood Pressure Source [Right Arm] Manual Cuff/ Auscultation Blood Pressure Position Sitting 02 Sat by Pulse Oximetry 99 98 Oxygen Delivery Method Room Air 08/05/21 23:45 Temperature Temperature Source Pulse Rate 74 Pulse Rate [Right] Respiratory Rate Blood Pressure 160/82 H Blood Pressure [Right Arm] Blood Pressure Mean [Right Arm] Blood Pressure Source Manual Cuff/ Auscultation Blood Pressure Source [Right Arm] Blood Pressure Position Supine 02 Sat by Pulse Oximetry 97 Oxygen Delivery Method Room Air - Lab Data Lab results reviewed: Yes: I reviewed the patient's lab results. Lab Results 08/05/21 21:21: WBC 11.1 H, RBC 5.36, Hgb 14.8, Hct 48.4, MCV 90.2, MCH 27.6, MCHC 30.5 L, RDW 14.1, Plt Count 268, MPV 7.8, Neut % (Auto) 69.6, Lymph % (Auto) 22.3, Bryan % (Auto) 5.9, Eos % (Auto) 1.5, Baso % (Auto) 0.6, Neut # (Auto) 7.7, Lymph # (Auto) 2.5, Bryan # (Auto) 0.7, Eos # (Auto) 0.2, Baso # (Auto) 0.1, ESR 2 08/05/21 21:21: Sodium 144, Potassium 3.8, Chloride 105, Carbon Dioxide 31 H, Anion Gap 11.8, BUN 32 H, Creatinine 1.10, Estimated Creat Clear 84, Estimated GFR 69, Est GFR ( Amer) 83, Glucose 105 H, Calcium 9.0, Total Bilirubin 0.3, AST 36, ALT 35, Alkaline Phosphatase 59, Troponin I < 0.01, C-Reactive Protein 17.2 H, NT-Pro-B Natriuret Pep 120, Total Protein 6.9, Albumin 4.0, Globulin 2.9, Albumin/Globulin Ratio 1.4, Procalcitonin 0.265, TSH 0.02 L, Thyroxine (T4) 11.4 H 08/05/21 21:21: Magnesium 2.0 Result diagrams: 08/05/21 21:21 08/05/21 21:21 Orders (Tests/Meds): ED MEDICATIONS Discontinued Medications Generic Name Dose Route Start Last Admin Trade Name Ramezq PRN Reason Stop Dose Admin Clonidine HCl 0.1 mg 08/05/21 22:04 08/05/21 22:06 Clonidine 0.1mg Tablet PO 08/05/21 22:05 0.1 mg ONCE ONE Administration Hydralazine HCl 10 mg 08/05/21 23:26 08/05/21 23:30 Hydralazine 20mg/Ml Vial IV 08/05/21 23:27 10 mg ONCE ONE Administration ORDERS Category Date Time Status Troponin I Q3H Lab 08/06/21 00:30 Ordered Troponin I Q3H Lab 08/06/21 03:30 Ordered - Radiology Data #1 Image(s): Chest Image Reviewed: Yes I have reviewed radiologist's interpretation Preliminary Findings: Normal/NAD - ECG Data Tracing #1 Normal Sinus Rhythm: Yes Ischemic changes: non-specific ST-T wave changes Medical Decision Narrative: has stable exam and labs and improved bp Anxiety HPI - General Chief Complaint: Anxiety Stated Complaint: blood pressure Time Seen by Provider: 08/05/21 21:45 Mode of Arrival: Ambulatory Source of Information: Patient, Medical Record Limitations: No Limitations Description of Symptoms (Recalled from ER Triage Doc. by
[2021-08-05 22:13] LABS: Thyroid Stimulating Hormone 0.02 uIU/mL (0.465-4.68)
[2021-08-05 23:26] VITALS: BP 200/98
[2021-08-05 23:45] VITALS: BP 160/82; PULSE 74; O2SAT 97
--- NOTE | 2021-08-05 23:48 | PC.NURSE ---
Dr. Serrano s/w vrad at this time.
[2021-08-06 00:10] VITALS: BP 154/78; PULSE 67; RESP 17; TEMP 36.7; O2SAT 97
== END 2021-08-06 00:13 | disposition home or self-care (01) ==
PROVIDERS: Emergency Provider Emergency Medicine; PCP Family Medicine
DX: I16.1 Hypertensive emergency (principal); F41.9 Anxiety disorder, unspecified; I48.0 Paroxysmal atrial fibrillation; I50.9 Heart failure, unspecified; E05.90 Thyrotoxicosis, unspecified without thyrotoxic crisis or storm; Z79.899 Other long term (current) drug therapy
CPT/HCPCS: 71046; 80053; 83735; 83880; 84145; 84436; 84443; 84484; 85025; 85651; 86140; 93005; 96374; 96375; 99283

== ENCOUNTER → 2021-09-09 09:46 | Outpatient (CLI) | payer BC, SELFPAY | PROVIDERS: PCP Family Medicine; Visit Provider Internal Medicine Cardiovascular Disease | DX: I25.10 Atherosclerotic heart disease of native coronary artery without angina pectoris (principal) ==

== ENCOUNTER → 2021-09-12 11:10 | Outpatient (CLI) | payer BC, SELFPAY | PROVIDERS: PCP Family Medicine; Visit Provider Internal Medicine Cardiovascular Disease | DX: R06.00 Dyspnea, unspecified (principal); I42.0 Dilated cardiomyopathy | CPT/HCPCS: 93270 ==

== ENCOUNTER → 2021-12-07 20:50 | Outpatient (CLI) | payer BC, SELFPAY | LOC: SL 20:51 | PROVIDERS: PCP Family Medicine; Visit Provider Specialist | DX: G47.33 Obstructive sleep apnea (adult) (pediatric) (principal); R06.83 Snoring | CPT/HCPCS: 95810 ==

== ENCOUNTER → 2022-04-24 07:56 | Outpatient (CLI) | payer BC, SELFPAY ==
--- NOTE | 2022-04-24 08:02 | CA_ITS ---
FINAL REPORT TECHNIQUE: Grayscale, color Doppler and duplex Doppler ultrasound of the kidneys, aorta and renal arteries was performed. Multiple velocities were measured. CLINICAL HISTORY: HTN FINDINGS: Aorta velocity: 105 cm/sec Right kidney: 11.3 cm. No evidence of hydronephrosis or mass. Right intrarenal RI: .71 Right renal artery velocity: 187 cm/sec. Right RAR (Renal artery-Aortic Ratio): 1.78 Left Kidney: 11.5 cm. No evidence of hydronephrosis or mass. Left intrarenal RI: .69 Left renal artery velocity: 135 cm/sec. Left RAR (Renal Artery-Aortic Ratio): 1.28 IMPRESSION: No evidence of significant renal artery stenosis. CT angiogram or postcontrast MR angiogram would be more sensitive for evaluation of possible renal artery stenosis. Reviewed, Interpreted and Dictated by Gilberto Figueroa III, MD Transcribed by Kelly Meyer Authenticated and [facility]
== END ==
PROVIDERS: PCP Family Medicine; Visit Provider Internal Medicine Cardiovascular Disease
DX: I11.0 Hypertensive heart disease with heart failure (principal); I50.20 Unspecified systolic (congestive) heart failure; I50.23 Acute on chronic systolic (congestive) heart failure; I25.10 Atherosclerotic heart disease of native coronary artery without angina pectoris; I48.91 Unspecified atrial fibrillation; R94.31 Abnormal electrocardiogram [ECG] [EKG]
CPT/HCPCS: 93976

== ENCOUNTER → 2022-05-19 10:15 | Outpatient (CLI) | payer BC, SELFPAY ==
[2022-05-19 10:43] LABS: Basophils # 0.1 K/mm3 (0-0.2); Basophils % 1.3 % (0.1-2.0); Eosinophils # 0.2 K/mm3 (0.0-0.4); Eosinophils % 1.6 % (0.1-12.0); Hematocrit 50.9 % (42.0-52.0); Hemoglobin 15.4 g/dL (14.1-18.0); Lymphocytes % 20.3 % (10-50); Mean Corpuscular HGB Conc 30.3 g/dL (31.8-35.4); Mean Corpuscular Volume 85.8 fl (80-94); Mean Platelet Volume 7.9 fl (7.4-10.4); Monocytes # 0.5 K/mm3 (0.1-1.0); Monocytes % 5.2 % (1.7-9.3); Neutrophils # 7.1 K/mm3 (1.8-7.8); Neutrophils % 71.7 % (37.0-80.0); Platelet Count 280 K/mm3 (142-424); Red Blood Count 5.93 M/mm3 (4.60-6.20); Red Cell Distribution Width 14.6 % (11.5-17.5); White Blood Count 9.9 K/mm3 (4.8-10.8)
[2022-05-19 11:13] LABS: Alanine Aminotransferase 38 U/L (12-78); Albumin Level 4.5 g/dl (3.5-5.0); Alkaline Phosphatase 76 U/L (38-126); Anion Gap 11.3 mEq/L (5-15); Aspartate Amino Transferase 35 U/L (17-59); Bilirubin,Direct 0.2 mg/dl (0.0-0.4); Bilirubin,Indirect 0.4 mg/dL (0.0-0.9); Bilirubin,Total 0.6 mg/dl (0.2-1.3); Bilirubin,Unconjugated 0.4 mg/dL (0.0-1.1); Blood Urea Nitrogen 27 mg/dl (9-20); Calcium 9.6 mg/dl (8.4-10.2); Carbon Dioxide 34 mmol/L (22.0-30.0); Chloride 99 mmol/L (98-107); Chol/HDL Ratio 3.5 (1-3.5); Cholesterol 135 mg/dl (140-200); Estimated Glomerular Filt Rate 52 ml/min (>60); GFR (African American) 63 ML/MIN (>60); Glucose 142 mg/dl (74-100); HDL Cholesterol 39 mg/dl (40-60); Potassium 3.3 mmoL/L (3.5-5.1); Sodium 141 mmol/L (136-145); Total Protein,Serum 7.3 g/dl (6.3-8.2); Triglycerides 99 mg/dl (30-150); VLDL Cholesterol 20 mg/dL (0-40)
[2022-05-20 10:35] LABS: Direct LDL Cholesterol 68 mg/dL (100-129)
== END ==
LOC: LAB 10:15
PROVIDERS: PCP Family Medicine; Visit Provider Internal Medicine Cardiovascular Disease
DX: I25.10 Atherosclerotic heart disease of native coronary artery without angina pectoris (principal); I48.91 Unspecified atrial fibrillation; I11.0 Hypertensive heart disease with heart failure; I50.20 Unspecified systolic (congestive) heart failure; I50.23 Acute on chronic systolic (congestive) heart failure; R94.31 Abnormal electrocardiogram [ECG] [EKG]
CPT/HCPCS: 36415; 80048; 80061; 80076; 83735; 84439; 84443; 85025

== ENCOUNTER → 2023-03-21 11:08 | Outpatient (POV) | payer BC, SELFPAY | PROVIDERS: Visit Provider Specialist/Technologist | DX: Z00.00 Encounter for general adult medical examination without abnormal findings (principal) ==

== ENCOUNTER → 2023-04-24 15:33 | Outpatient (CLI) | payer BC, SELFPAY ==
--- NOTE | 2023-04-24 15:48 | MR_ITS ---
PROCEDURE INFORMATION: Exam: MR Head Without and With Contrast; Internal Auditory Canals Exam date and time: 04/24/2023 3:56 PM Age: 57 years old Clinical indication: Other: Hearing loss; Additional info: Unilateral hearing loss TECHNIQUE: Imaging protocol: MR of the head without and with intravenous contrast. Exam focused on the internal auditory canals. Contrast material: PROHANCE; Contrast volume: 18 ml; Contrast route: IV; COMPARISON: CT HEAD/BRAIN WO CON 02/28/2021 12:02 AM FINDINGS: Brain: No restricted diffusion within the brain to suggest an acute infarct. There are scattered nonspecific foci of FLAIR hyperintensity within the cerebral white matter. There is no mass effect or restricted diffusion associated with these foci. In a patient this age, this likely represents chronic small vessel ischemic disease. No cerebral edema. No enhancing intracranial mass is identified. Cerebral ventricles: There is mild prominence of the ventricles and sulci, compatible with atrophy. Mastoid air cells: Effusions within mastoid air cells, most significant the right side. Internal auditory canals: An anterior inferior cerebellar artery loop is identified within the left internal auditory canal. There is no enhancing lesion involving the bilateral internal auditory canals or cerebellopontine angle cisterns. The visualized portions of the proximal seventh, and eighth cranial nerves are unremarkable. Enhancing vessels are identified adjacent to the proximal bilateral 5th nerves, without compression. Paranasal sinuses: A mucous retention cyst or polyp is visualized in the right maxillary sinus. Minimal mucosal thickening of scattered ethmoid air cells. Bones/joints: A posterior disc bulge/protrusion is identified at C3-C4, with moderate spinal canal stenosis. Evaluation of the cervical spine is limited. IMPRESSION: 1. No acute infarct. 2. Mild atrophy. 3. Mild nonspecific white matter disease, likely representing chronic small vessel ischemic disease. 4. Effusions within mastoid air cells, most significant the right side. 5. An anterior inferior cerebellar artery loop is identified within the left internal auditory canal. There is no enhancing lesion involving the bilateral internal auditory canals or cerebellopontine angle cisterns. 6. Additional findings described above.
[2023-04-24 16:03] LABS: Blood Urea Nitrogen 36 mg/dl (9-20); Estimated Glomerular Filt Rate 62 ml/min (>60); GFR (African American) 75 ML/MIN (>60)
== END ==
LOC: RAD 15:35
PROVIDERS: PCP Family Medicine; Visit Provider Nurse Practitioner
DX: H91.90 Unspecified hearing loss, unspecified ear (principal)
CPT/HCPCS: 70553; 82565; 84520; A9576

== ENCOUNTER 2023-05-01 13:32 | Observation (INO) | payer BC, SELFPAY ==
[2023-05-01] VITALS (13 sets, daily range): BP systolic 131–181; BP diastolic 87–111; PULSE 84–102; RESP 16–20; TEMP 36.6–37.4; O2SAT 94–98; BMI 28.0; BMI 27.4
--- NOTE | 2023-05-01 14:02 | EXP.UTC ---
Discharge Plan Disposition Patient Disposition: Still a Patient Condition: Fair Prescriptions Prescriptions: No Action tadalafil [Cialis] 5 mg tablet 5 mg PO DAILY PRN (Reason: sexual activity) Qty: 30 2RF levothyroxine 125 mcg tablet 125 mcg PO DAILY Patient Comments: TAKE 1 TABLET BY MOUTH DAILY montelukast [Singulair] 10 mg tablet 10 mg PO DAILY Qty: 60 4RF zolpidem 10 mg tablet 10 mg PO HS PRN (Reason: Sleep) methocarbamol 500 mg tablet 500 mg PO HS Qty: 30 3RF amlodipine 5 mg tablet See Rx Instructions .ROUTE .COMPLEX Qty: 30 6RF Dose Instruction: TAKE ONE TABLET BY MOUTH DAILY Rx Instructions: TAKE ONE TABLET BY MOUTH DAILY losartan 100 mg tablet See Rx Instructions .ROUTE .COMPLEX Qty: 30 6RF Dose Instruction: TAKE ONE TABLET BY MOUTH DAILY Rx Instructions: TAKE ONE TABLET BY MOUTH DAILY furosemide 40 mg tablet 40 mg PO DAILY Qty: 30 5RF hydrochlorothiazide 12.5 mg tablet 12.5 mg PO DAILY Qty: 30 3RF clonidine HCl 0.2 mg tablet 0.2 mg PO TID PRN (Reason: hypertensive emergency) Qty: 90 2RF rosuvastatin [Crestor] 20 mg tablet 20 mg PO DAILY Qty: 90 3RF Eliquis 5 mg tablet See Rx Instructions .ROUTE .COMPLEX Qty: 180 1RF Dose Instruction: Take 1 Tablet by mouth twice daily for blood thinner. Rx Instructions: Take 1 Tablet by mouth twice daily for blood thinner. Referrals Follow up/Referrals: Anthony Dasilva MD [Primary Care Provider] - See instructions Clinical Impressions Clinical Impression: Hyperglycemia Discharge ED Provider: Benigno Gonzales [facility] [place] General Stated complaint: no appetite, urinating consistently Mode of Arrival: Ambulatory Source of Information: Patient Limitations: No Limitations Time Seen by Provider: 05/01/23 14:01 Description of Symptoms (Recalled from Triage Doc. by RN): Patient states he is not feeling right, food tasts bad, thirsty all the time and constantly having to pee for 1.5 weeks. HEENT Symptoms (Recalled from RN notes): No Resp Symptoms (Recalled from RN notes): No Skin Symptoms (Recalled from RN notes): No MS Symptoms (Recalled from RN notes): Yes Functional Status (Recalled from RN notes): wnl History of Present Illness Provider Complaint: He states that for the past 2 weeks he has had extreme thirst, very frequent urination, poor appetite and he has felt bad. He denies any history of diabetes. Related Data Home Medications Medication Instructions Recorded Confirmed zolpidem 10 mg tablet 10 mg PO HS PRN Sleep 06/09/21 05/01/23 levothyroxine 125 mcg tablet 125 mcg PO DAILY 04/02/23 05/01/23 Previous Rx's Medication Instructions Recorded tadalafil 5 mg tablet (Cialis) 5 mg PO DAILY PRN sexual activity 09/09/21 #30 tabs amlodipine 5 mg tablet See Rx Instructions .Route 09/04/22 .COMPLEX #30 tabs losartan 100 mg tablet See Rx Instructions .Route 09/04/22 .COMPLEX #30 tabs methocarbamol 500 mg tablet 500 mg PO HS #30 tabs 02/12/23 furosemide 40 mg tablet 40 mg PO DAILY Heart failure #30 02/14/23 tabs clonidine HCl 0.2 mg tablet 0.2 mg PO TID PRN hypertensive 02/27/23 emergency #90 tabs hydrochlorothiazide 12.5 mg tablet 12.5 mg PO DAILY #30 tabs 02/27/23 rosuvastatin 20 mg tablet (Crestor) 20 mg PO DAILY #90 tabs 03/22/23 apixaban 5 mg tablet (Eliquis) See Rx Instructions .Route 04/18/23 .COMPLEX #180 tabs montelukast 10 mg tablet 10 mg PO DAILY #60 tabs 05/01/23 (Singulair) Allergies Allergy/AdvReac Type Severity Reaction Status Date / Time strawberry Allergy Intermediate Rash Verified 05/01/23 13:14 Worker's Comp Is this a Worker's Comp case?: No [facility] Disclaimer: The information contained in this section may have been updated after the patient was seen, as this information can be updated by other users. Medical History Afib Anxiety CAD (coronary artery disease
[2023-05-01 14:22] LABS: Microscopic, Urine URINE MICROSCOPIC (MICROSCOPIC)
[2023-05-01 14:30] LABS: Appearance,Urine CLEAR (Clear); Bilirubin,Urine Negative (Negative); Blood, Urine TRACE-L (Negative); Color,Urine YELLOW (Yellow); Glucose,Urine (UA) 3+ (Negative); Ketones,Urine 1+ (Negative); Leukocyte Esterase,Urine Negative (Negative); Nitrate,Urine Negative (Negative); PH,Urine 5.5 (5.0-8.5); Protein,Urine Negative (Negative); Specific Gravity, Urine <= 1.005 (1.005-1.030); Urobilinogen,Urine 0.2 EU/dl (0.2)
[2023-05-01 14:42] LABS: Basophils # 0.1 K/mm3 (0-0.2); Basophils % 0.6 % (0.1-2.0); Eosinophils # 0.1 K/mm3 (0.0-0.4); Eosinophils % 0.9 % (0.1-12.0); Hemoglobin 17.4 g/dL (14.1-18.0); Lymphocytes # 1.7 K/mm3 (0.7-4.5); Mean Corpuscular HGB Conc 30.6 g/dL (31.8-35.4); Mean Corpuscular Volume 81.6 fl (80-94); Mean Platelet Volume 9.2 fl (7.4-10.4); Monocytes # 0.5 K/mm3 (0.1-1.0); Monocytes % 4.1 % (1.7-9.3); Neutrophils # 8.7 K/mm3 (1.8-7.8); Neutrophils % 79.4 % (37.0-80.0); Platelet Count 280 K/mm3 (142-424); Red Blood Count 6.98 M/mm3 (4.60-6.20); Red Cell Distribution Width 14.4 % (11.5-17.5)
[2023-05-01 15:06] LABS: Alanine Aminotransferase 42 U/L (12-78); Albumin Level 4.8 g/dl (3.5-5.0); Albumin/Globulin Ratio 1.3 (1.1-1.8); Alkaline Phosphatase 104 U/L (38-126); Anion Gap 19.5 mEq/L (5-15); Aspartate Amino Transferase 37 U/L (17-59); Bilirubin,Total 0.9 mg/dl (0.2-1.3); Blood Urea Nitrogen 39 mg/dl (9-20); Carbon Dioxide 24 mmol/L (22.0-30.0); Chloride 94 mmol/L (98-107); Creatinine Clearance Estimated 75 mL/min (50-200); Estimated Glomerular Filt Rate 57 ml/min (>60); GFR (African American) 68 ML/MIN (>60); Globulin 3.6 g/dL (1.3-3.2); Potassium 4.5 mmoL/L (3.5-5.1); Sodium 133 mmol/L (136-145); Total Protein,Serum 8.4 g/dl (6.3-8.2)
[2023-05-01 15:19] LABS: Glucose 611 mg/dl (74-100)
--- NOTE | 2023-05-01 15:19 | PC.NURSE ---
ER MD Gonzales at
[2023-05-01 15:20] LABS: Acetone, Serum (Rapid) None Detected (None Detect)
--- NOTE | 2023-05-01 15:23 | PC.NURSE ---
Dr. Gonzales notified of critical glucose of 611
--- NOTE | 2023-05-01 15:28 | PC.NURSE ---
notified lab of new orders on pt
[2023-05-01 15:36] LABS: Lipase 249 U/L (23-300)
[2023-05-01 15:39] LABS: RBC,Urine Occasional #/hpf (0-3); Squamous Epithelial Cell,Urine Occasional #/hpf (0-5)
--- NOTE | 2023-05-01 15:48 | HMH.EDGENADL ---
Discharge Plan Disposition Patient Disposition: Admitted Condition: Fair Clinical Impressions Clinical Impression: Hyperglycemia Discharge ED Provider: Benigno Gonzales General Adult HPI General Chief complaint: Hyper/Hypoglycemia Stated complaint: no appetite, urinating consistently Time Seen by Provider: 05/01/23 14:01 Mode of Arrival: Ambulatory Limitations: No Limitations Description of Symptoms (Recalled from ER Triage Doc. by RN): Pt reports frequent urination, no appetite, and takes everything he eats is nasty in taste for approx 1.5 weeks. States not known to be diabetic. [facility] reports pt fsbs over 500. Pt denies recent steriod use. History of Present Illness HPI narrative: This is a 57-year-old male with history of thyroid storm status post thyroidectomy, hypertension, hyperlipidemia, chronic hearing loss presenting with multiple complaints. Patient states that for the past few days, he has been feeling weak, tired, thirsty and peeing a lot. Denies dysuria or hematuria. Has had 10 pound weight loss in the last month. Was at his primary care doctor's office when they checked his sugar and it was over 500, so told to come to the ER for further evaluation. Patient denies any other symptoms at this time. Related Data Home Medications Medication Instructions Recorded Confirmed zolpidem 10 mg tablet 10 mg PO HS PRN Sleep 06/09/21 05/01/23 levothyroxine 125 mcg tablet 125 mcg PO DAILY thyroid 04/02/23 05/01/23 amlodipine 5 mg tablet 5 mg PO DAILY blood pressure 05/01/23 05/01/23 apixaban 5 mg tablet (Eliquis) 5 mg PO DAILY heart health 05/01/23 05/01/23 hydrochlorothiazide 12.5 mg tablet 12.5 mg PO DAILY heart health 05/01/23 05/01/23 losartan 100 mg tablet 100 mg PO DAILY heart health 05/01/23 05/01/23 montelukast 10 mg tablet 10 mg PO DAILY allergies 05/01/23 05/01/23 (Singulair) rosuvastatin 20 mg tablet (Crestor) 20 mg PO DAILY heart health 05/01/23 05/01/23 Previous Rx's Medication Instructions Recorded tadalafil 5 mg tablet (Cialis) 5 mg PO DAILY PRN sexual activity 09/09/21 #30 tabs furosemide 40 mg tablet 40 mg PO DAILY Heart failure #30 02/14/23 tabs clonidine HCl 0.2 mg tablet 0.2 mg PO TID PRN hypertensive 02/27/23 emergency #90 tabs Allergies Allergy/AdvReac Type Severity Reaction Status Date / Time strawberry Allergy Intermediate Rash Verified 05/01/23 13:14 [facility] Disclaimer: The information contained in this section may have been updated after the patient was seen, as this information can be updated by other users. Medical History Afib Anxiety CAD (coronary artery disease) Cardiomyopathy CHF (congestive heart failure) Erectile dysfunction Hearing loss HLD (hyperlipidemia) Hypertension PAF (paroxysmal atrial fibrillation) Tinnitus TMJ (dislocation of temporomandibular joint) Unilateral hearing loss Surgical History H/O hernia repair Hx of colonoscopy Family History Other Hyperlipidemia Hypertension Thyroid disorder Social History Smoking Status: Never smoker second hand exposure: No alcohol intake: never substance use type: denies use current occupational status: retired and disabled Travel in the last 8 weeks: Inside the [place] household members: spouse, family and children housing: house caffeine: Yes ROS Obtained: Yes All systems reviewed & no additional complaints except as documented Physical Exam General General appearance: alert and in no apparent distress Head Head exam: atraumatic, normocephalic and normal inspection Eye Eye exam: Present normal appearance, PERRL and EOMI ENT ENT exam: Present normal exam, normal oropharynx, mucous membranes moist, TM's normal bilaterally and normal external e
[2023-05-01 15:56] LABS: T4 (Thyroxine) 10.8 ug/dl (5.53-11.0)
[2023-05-01 16:01] LABS: Hemoglobin A1C > 14.0 % (4.0-6.0)
[2023-05-01 16:09] LABS: Thyroid Stimulating Hormone 2.95 uIU/mL (0.465-4.68)
--- NOTE | 2023-05-01 16:44 | PC.NURSE ---
repeat fsbs 439
[2023-05-01 16:50] LABS: POC Glucose,Bedside 439 (70-110)
--- NOTE | 2023-05-01 16:55 | PC.NURSE ---
lab results received from pt pcp office, given to MIA Gonzales
--- NOTE | 2023-05-01 17:32 | PC.NURSE ---
ER MD Gonzales speaking with Dr. Doss
--- NOTE | 2023-05-01 17:35 | PC.NURSE ---
notified [facility] of admission
--- NOTE | 2023-05-01 17:50 | PC.NURSE ---
report called to hedy borjas
[2023-05-01 17:53] LABS: POC Glucose,Bedside 375 (70-110)
[2023-05-01 19:41] LABS: Thyroid Stimulating Hormone 1.87 uIU/mL (0.465-4.68)
--- NOTE | 2023-05-01 19:56 | EXP.HP ---
History of Present Illness *Admission Date: 05/01/23 *Reason for visit:: Hyperglycemia *History of present illness: 57 year old male presented to the ED for c/o weakness, polydipsia, polyuria, and weight loss for the past two weeks. Prior to arriving at the ED the patient was seen by ENT for a MRI of his brain related unilateral hearing loss. PMHX of A fib, HTN, sleep apnea, hypothyroidism, CAD, and CHF. In the ED the patient's blood work revealed a sodium of 133, A1c of 14, glucose of 611, and anion gap of 19.5. No acetones detected in the blood. The ED physician spoke with the hospitalist team. The patient will be admitted for further medical management of his newly diagnosis of diabetes mellitus and hyperosmolar hyperglycemic syndrome. The patient arrives to the medical floor in no acute distress. His glucose has decreased from 611 to 375. Will continue to treat and monitor glucose as well as electrolytes. Pt denies any pain, nausea, vomiting, or diarrhea. [facility] Disclaimer: The information contained in this section may have been updated after the patient was seen, as this information can be updated by other users. Medical History Afib Anxiety CAD (coronary artery disease) Cardiomyopathy CHF (congestive heart failure) Erectile dysfunction Hearing loss HLD (hyperlipidemia) Hypertension PAF (paroxysmal atrial fibrillation) Tinnitus TMJ (dislocation of temporomandibular joint) Unilateral hearing loss Surgical History H/O hernia repair Hx of colonoscopy Family History Other Hyperlipidemia Hypertension Thyroid disorder Social History Smoking Status: Never smoker second hand exposure: No alcohol intake: never substance use type: denies use current occupational status: retired and disabled Travel in the last 8 weeks: [place] the [place] household members: spouse, family and children housing: house caffeine: Yes Review of Systems Review of Systems Review of systems:: pertinent systems reviewed and negative unless documented below Constitutional Constitutional: Reports poor appetite, Reports weight loss and Reports other (polyuria and polydipsia ) Eyes Eyes: Reports system reviewed and no additional complaints, except as documented ENT Ears, Nose, Mouth, and Throat: Reports abnormal hearing (decreased left ear hearing ) and Denies dizziness *Cardiovascular Cardiovascular: Reports system reviewed and no additional complaints, except as documented and Denies chest pain *Respiratory Respiratory: Reports system reviewed and no additional complaints, except as documented *Gastrointestinal Gastrointestinal: Reports system reviewed and no additional complaints, except as documented *Genitourinary Genitourinary: Reports system reviewed and no additional complaints, except as documented *Musculoskeletal Musculoskeletal: Reports system reviewed and no additional complaints, except as documented Integumentary/Breasts Skin/Breast: Reports system reviewed and no additional complaints, except as documented *Neurologic Neurologic: Reports abnormal hearing (decreased left ear hearing ), Denies dizziness and Denies paresthesias Psychiatric Psychiatric: Reports system reviewed and no additional complaints, except as documented Endocrine Endocrine: Reports polydipsia and Reports polyuria Meds Home Medications and Allergies Home Medications Medication Instructions Recorded Confirmed Type zolpidem 10 mg tablet 10 mg PO HS PRN Sleep 06/09/21 05/01/23 History tadalafil 5 mg tablet (Cialis) 5 mg PO DAILY PRN sexual activity 09/09/21 05/01/23 Rx #30 tabs furosemide 40 mg tablet 40 mg PO DAILY Heart failure #30 02/14/23 05/01/23 Rx tabs clonidine HCl 0.2 mg tablet 0.2 mg PO TID PRN hyp
[2023-05-01 21:07] LABS: POC Glucose,Bedside 468 (70-110)
[2023-05-01 22:53] LABS: Anion Gap 15.4 mEq/L (5-15); Blood Urea Nitrogen 34 mg/dl (9-20); Calcium 9.7 mg/dl (8.4-10.2); Carbon Dioxide 28 mmol/L (22.0-30.0); Chloride 99 mmol/L (98-107); Creatinine Clearance Estimated 79 mL/min (50-200); Estimated Glomerular Filt Rate 62 ml/min (>60); GFR (African American) 75 ML/MIN (>60); Potassium 4.4 mmoL/L (3.5-5.1); Sodium 138 mmol/L (136-145)
[2023-05-01 22:58] LABS: Glucose 412 mg/dl (74-100)
[2023-05-02] VITALS: BP 150/84
[2023-05-02 00:18] LABS: POC Glucose,Bedside 303 (70-110)
[2023-05-02 04:00] VITALS: BP 138/74; PULSE 86; RESP 18; TEMP 37; O2SAT 98; BMI 28.1
--- NOTE | 2023-05-02 05:24 | PC.NURSE ---
NO ACUTE CHANGES THIS SHIFT. NO C/O PAIN. AMBULATING INDEPENDENTLY. REMAINS ON ROM AIR. CPAP AT NIGHT. PT'S BP WAS ELEVATED AT THE BEGINNING OF THE SHIFT TREATED PER DEC. FSBS HAS BEEN ELEVATED THIS SHIFT. P HAS STATED THAT THE FREQUENT URINATION AND EXTREME THIRST IS MUCH BETTER NOW THAN WHEN HE CAME TO THE HOSPITAL.
[2023-05-02 05:55] LABS: POC Glucose,Bedside 317 (70-110)
[2023-05-02 06:43] LABS: Basophils # 0.1 K/mm3 (0-0.2); Basophils % 0.8 % (0.1-2.0); Eosinophils # 0.2 K/mm3 (0.0-0.4); Eosinophils % 1.6 % (0.1-12.0); Hematocrit 54.7 % (42.0-52.0); Hemoglobin 16.8 g/dL (14.1-18.0); Lymphocytes # 2.8 K/mm3 (0.7-4.5); Lymphocytes % 24.8 % (10-50); Mean Corpuscular HGB Conc 30.7 g/dL (31.8-35.4); Mean Corpuscular Hemoglobin 25.2 pg (27.0-31.2); Mean Corpuscular Volume 82.2 fl (80-94); Mean Platelet Volume 8.9 fl (7.4-10.4); Monocytes # 0.7 K/mm3 (0.1-1.0); Monocytes % 5.7 % (1.7-9.3); Neutrophils # 7.6 K/mm3 (1.8-7.8); Neutrophils % 67.1 % (37.0-80.0); Platelet Count 254 K/mm3 (142-424); Red Blood Count 6.66 M/mm3 (4.60-6.20); Red Cell Distribution Width 14.2 % (11.5-17.5); White Blood Count 11.3 K/mm3 (4.8-10.8)
[2023-05-02 06:53] LABS: Alanine Aminotransferase 36 U/L (12-78); Albumin Level 4.2 g/dl (3.5-5.0); Albumin/Globulin Ratio 1.4 (1.1-1.8); Alkaline Phosphatase 88 U/L (38-126); Anion Gap 12.1 mEq/L (5-15); Aspartate Amino Transferase 38 U/L (17-59); Bilirubin,Total 0.7 mg/dl (0.2-1.3); Blood Urea Nitrogen 33 mg/dl (9-20); Calcium 9.4 mg/dl (8.4-10.2); Carbon Dioxide 30 mmol/L (22.0-30.0); Chloride 98 mmol/L (98-107); Creatinine Clearance Estimated 81 mL/min (50-200); Estimated Glomerular Filt Rate 62 ml/min (>60); GFR (African American) 75 ML/MIN (>60); Globulin 3.1 g/dL (1.3-3.2); Glucose 357 mg/dl (74-100); Magnesium 2.4 mg/dl (1.6-2.3); Potassium 4.1 mmoL/L (3.5-5.1); Sodium 136 mmol/L (136-145); Total Protein,Serum 7.3 g/dl (6.3-8.2)
[2023-05-02 07:51] VITALS: BP 184/99; PULSE 105; RESP 16; TEMP 36.8; O2SAT 98
--- NOTE | 2023-05-02 08:06 | HMH.PHAINT1 ---
Pharmacy Intervention Comments: Patient's home medications reviewed and verified with external pharmacy and patient. -Nba Valdez, Pharm Student
[2023-05-02 11:16] LABS: POC Glucose,Bedside 313 (70-110)
[2023-05-02 13:17] VITALS: BMI 28.1
[2023-05-02 15:06] VITALS: BP 181/102; PULSE 118; RESP 18; TEMP 36.9; O2SAT 99
[2023-05-02 15:44] LABS: POC Glucose,Bedside 404 (70-110)
--- NOTE | 2023-05-02 16:38 | EXP.ACUTE.PN ---
Subjective *Date: 05/02/23 *Time: 16:41 Interval history: Patient states he is feeling better today. Blood sugars in the 300s overnight on morning labs. Electrolytes main stable. Not urinating as frequently. Tolerating p.o. intake. Afebrile and normotensive. Blood pressure has unfortunately increased through the course of the day. Patient takes clonidine 0.2 mg 3 times daily as needed for hypertensive emergency at home. Suspect hypertension related to holding this medication. Denies any chest pain or shortness of breath. Medical Exam Vital signs and Labs for Last 24 Hours: Vital Signs Temp Pulse Pulse Resp BP BP Pulse Ox 05/02/23 15:06 98.5 F 118 H 18 181/102 H 99 05/02/23 14:26 05/02/23 12:56 05/02/23 11:00 05/02/23 09:00 05/02/23 07:51 98.3 F 105 H 16 184/99 H 98 05/02/23 07:50 05/02/23 06:55 05/02/23 04:00 98.6 F 86 18 138/74 98 05/02/23 05:00 05/02/23 03:00 05/02/23 01:00 05/02/23 00:00 150/84 H 05/01/23 22:00 172/111 H 05/01/23 23:00 05/01/23 21:00 05/01/23 20:00 99.4 F 87 18 163/87 H 98 05/01/23 20:54 05/01/23 18:45 98 05/01/23 18:18 05/01/23 18:11 97.9 F 102 H 19 155/97 H 98 05/01/23 17:57 99.2 F 87 20 149/87 H 05/01/23 17:30 87 149/87 H 98 05/01/23 17:00 91 H 158/101 H 98 O2 Del Method 05/02/23 15:06 Room Air 05/02/23 14:26 Room Air 05/02/23 12:56 Room Air 05/02/23 11:00 Room Air 05/02/23 09:00 Room Air 05/02/23 07:51 Room Air 05/02/23 07:50 Room Air 05/02/23 06:55 Room Air 05/02/23 04:00 Room Air 05/02/23 05:00 CPAP 05/02/23 03:00 CPAP 05/02/23 01:00 CPAP 05/02/23 00:00 05/01/23 22:00 05/01/23 23:00 Room Air 05/01/23 21:00 Room Air 05/01/23 20:00 Room Air 05/01/23 20:54 Room Air 05/01/23 18:45 Room Air 05/01/23 18:18 Room Air 05/01/23 18:11 Room Air 05/01/23 17:57 Room Air 05/01/23 17:30 05/01/23 17:00 Intake and Output 05/02/23 05/02/23 05/02/23 07:59 15:59 23:59 Intake Total 240 / 840 600 / 840 Output Total 300 / 300 0 / 300 Balance -60 / 540 600 / 540 Intake: Intake, Oral Amount 240 / 840 600 / 840 Output: Output, Urine Amount 300 / 300 0 / 300 Other: Number of Unmeasured Voids 1 2 Weight 86.2 kg 86.2 kg Patient Weight 05/02/23 23:59 Weight 86.2 kg Laboratory Results - last 24 hr 05/01/23 16:43: POC Glucose 439 H* 05/01/23 17:46: POC Glucose 375 H* 05/01/23 18:05: Potassium 4.0, TSH 1.87 D 05/01/23 20:43: POC Glucose 468 H* 05/01/23 22:05: Sodium 138, Potassium 4.4, Chloride 99, Carbon Dioxide 28, Anion Gap 15.4 H, BUN 34 H, Creatinine 1.20, Estimated Creat Clear 79, Estimated GFR 62, Est GFR ( Amer) 75, Glucose 412 H* D, Calcium 9.7 05/02/23 00:11: POC Glucose 303 H* 05/02/23 05:47: POC Glucose 317 H* 05/02/23 05:57: WBC 11.3 H, RBC 6.66 H, Hgb 16.8, Hct 54.7 H, MCV 82.2, MCH 25.2 L, MCHC 30.7 L, RDW 14.2, Plt Count 254, MPV 8.9, Neut % (Auto) 67.1, Lymph % (Auto) 24.8, Starke % (Auto) 5.7, Eos % (Auto) 1.6, Baso % (Auto) 0.8, Neut # (Auto) 7.6, Lymph # (Auto) 2.8, Starke # (Auto) 0.7, Eos # (Auto) 0.2, Baso # (Auto) 0.1, Sodium 136, Potassium 4.1, Chloride 98, Carbon Dioxide 30, Anion Gap 12.1, BUN 33 H, Creatinine 1.20, Estimated Creat Clear 81, Estimated GFR 62, Est GFR ( Amer) 75, Glucose 357 H, Calcium 9.4, Magnesium 2.4 H, Total Bilirubin 0.7, AST 38, ALT 36, Alkaline Phosphatase 88, Total Protein 7.3, Albumin 4.2 D, Globulin 3.1, Albumin/Globulin Ratio 1.4 05/02/23 10:45: POC Glucose 313 H* 05/02/23 15:38: POC Glucose 404 H* I & O for Labs for Last 24 Hours: Intake & Output 04/29/23 04/30/23 05/01/23 05/02/23 23:59 23:59 23:59 23:59 Intake Total 840 / 840 Output Total 200 / 200 300 / 300 Balance -200 / -200 540 / 540 Weight 84.4 kg 86.2 kg Constitutional: Present no acute distress and average body h
[2023-05-02 20:00] VITALS: BP 148/81; PULSE 89; RESP 18; TEMP 37.2; O2SAT 98
[2023-05-02 20:11] LABS: POC Glucose,Bedside 370 (70-110)
[2023-05-03 04:00] VITALS: BP 163/100; PULSE 86; RESP 18; TEMP 37.3; O2SAT 98; BMI 27.9
[2023-05-03 06:04] LABS: POC Glucose,Bedside 266 (70-110)
[2023-05-03 06:35] LABS: Basophils # 0.1 K/mm3 (0-0.2); Basophils % 0.6 % (0.1-2.0); Eosinophils # 0.1 K/mm3 (0.0-0.4); Eosinophils % 1.1 % (0.1-12.0); Hematocrit 54.3 % (42.0-52.0); Hemoglobin 17.2 g/dL (14.1-18.0); Lymphocytes # 1.9 K/mm3 (0.7-4.5); Lymphocytes % 15.6 % (10-50); Mean Corpuscular HGB Conc 31.6 g/dL (31.8-35.4); Mean Corpuscular Hemoglobin 24.9 pg (27.0-31.2); Mean Corpuscular Volume 78.9 fl (80-94); Mean Platelet Volume 8.3 fl (7.4-10.4); Monocytes # 0.7 K/mm3 (0.1-1.0); Monocytes % 5.8 % (1.7-9.3); Neutrophils # 9.2 K/mm3 (1.8-7.8); Platelet Count 269 K/mm3 (142-424); Red Blood Count 6.89 M/mm3 (4.60-6.20); Red Cell Distribution Width 14.2 % (11.5-17.5)
[2023-05-03 06:53] LABS: Alanine Aminotransferase 32 U/L (12-78); Albumin Level 4.3 g/dl (3.5-5.0); Albumin/Globulin Ratio 1.5 (1.1-1.8); Alkaline Phosphatase 79 U/L (38-126); Anion Gap 15.7 mEq/L (5-15); Aspartate Amino Transferase 32 U/L (17-59); Bilirubin,Total 0.6 mg/dl (0.2-1.3); Blood Urea Nitrogen 33 mg/dl (9-20); Calcium 9.4 mg/dl (8.4-10.2); Carbon Dioxide 27 mmol/L (22.0-30.0); Chloride 99 mmol/L (98-107); Creatinine Clearance Estimated 80 mL/min (50-200); Estimated Glomerular Filt Rate 62 ml/min (>60); GFR (African American) 75 ML/MIN (>60); Globulin 2.9 g/dL (1.3-3.2); Glucose 298 mg/dl (74-100); Magnesium 2.3 mg/dl (1.6-2.3); Potassium 3.7 mmoL/L (3.5-5.1); Sodium 138 mmol/L (136-145); Total Protein,Serum 7.2 g/dl (6.3-8.2)
[2023-05-03 08:00] VITALS: BP 175/96; PULSE 88; RESP 18; TEMP 37; O2SAT 98
--- NOTE | 2023-05-03 08:02 | EXP.DC.SUM ---
General Admission date:: 05/01/23 Discharge date: 05/03/23 HPI HPI HPI: 57 year old male presented to the ED for c/o weakness, polydipsia, polyuria, and weight loss for the past two weeks. Prior to arriving at the ED the patient was seen by ENT for a MRI of his brain related unilateral hearing loss. PMHX of A fib, HTN, sleep apnea, hypothyroidism, CAD, and CHF. In the ED the patient's blood work revealed a sodium of 133, A1c of 14, glucose of 611, and anion gap of 19.5. No acetones detected in the blood. The ED physician spoke with the hospitalist team. The patient will be admitted for further medical management of his newly diagnosis of diabetes mellitus and hyperosmolar hyperglycemic syndrome. The patient arrives to the medical floor in no acute distress. His glucose has decreased from 611 to 375. Will continue to treat and monitor glucose as well as electrolytes. Pt denies any pain, nausea, vomiting, or diarrhea. Hospital Course Hospital Course Hospital Course: 57 year old male presented to the ED for c/o weakness, polydipsia, polyuria, and weight loss for the past two weeks. Prior to arriving at the ED the patient was seen by ENT for a MRI of his brain related unilateral hearing loss. PMHX of A fib, HTN, sleep apnea, hypothyroidism, CAD, and CHF. In the ED the patient's blood work revealed a sodium of 133, A1c of >14, glucose of 611, and anion gap of 19.5. No acetones detected in the blood. Improvement in hyperglycemia however still elevated in the 300s. Treated with DKA protocol during admission. Some improvement in glucose. Stable for discharge home to continue current regimen with close follow-up with PCP for further adjustments. Problems addressed as follows: DIABETES, new diagnosis HHS -Presented with high anion gap, pseudohyponatremia, glucose over 800. Started on DKA protocol with insulin drip and IV fluids. Responded well with improvement in glucose and closure of gap by the following day. Insulin was titrated during admission with glargine 30 given the night before discharge. Given his elevated glucose on day of discharge, increased insulin glargine to 45 units nightly. Additionally was initiated on Jardiance 10 mg daily and metformin 500 mg twice daily. Glucose between 200-350 by day of discharge. Counseled on logging insulin administration and fingerstick glucose at least twice a day until he follows up with his PCP in the coming week. Will defer further adjustment to them at that time. Of note, A1c elevated on admission at greater than 14. Diabetes is new diagnosis for this patient. Nutrition consulted and assisted with counseling on diabetic diet HTN CHF AFIB HLD CAD Variable blood pressure during hospitalization. Patient's blood pressure previously would elevate and he would take 0.2 mg clonidine at home 3 times a day as needed. Concerned that his elevated blood pressure is actually rebound hypertension secondary to the clonidine. Discontinue clonidine during admission. Increase his amlodipine to 10 mg daily. Continued home Eliquis 5 mg twice daily. Continue losartan 100 mg daily, HCTZ 12-1/2 mg daily, Lasix 40 mg daily. 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 TSH 1.87 during admission. Continued home levothyroxine 125 mcg daily SLEEP APNEA: Utilizing home CPAP Spent 30 minutes in discharge counseling and direct care with patient. Exam Data for Last 24 hours Vital signs and Labs for Last 24 Hours: Temp Pulse Resp BP Pulse Ox O2 Del Method 99.1 F 86 18 163/100 H 98 Room Air 05/03/23 04:00 05/03/23 04:00 05/03/23 04:00 05/03/23 04:00 05/03/23 04:00 05/03/23 07:32 Laboratory Results - last 24 hr 05/02/23 10:45: POC Glucose 313 H* 05/02/23 15:38: POC Glucose 404 H* 05/02/23 20:00: POC Glucose 370 H* 05/03/23 05:54: POC Glucose 266 H 05/03/23 05:55: WBC 12.0 H, RBC 6.89 H, Hgb 17.2, Hct 54.3 H, MCV 78.9 L, MCH 24.9 L, MCH
--- NOTE | 2023-05-03 08:45 | PC.NURSE ---
TECH NOTE; NOTIFIED NURSE OF BLOOD PRESSURE FOR 0800 VITAL SIGNS Bella WISE, SRNA
[2023-05-03 10:47] LABS: POC Glucose,Bedside 380 (70-110)
[2023-05-03 12:00] VITALS: BP 135/87; PULSE 83; RESP 20; TEMP 37.1; O2SAT 98
--- NOTE | 2023-05-03 13:19 | HMH.PHAINT1 ---
Pharmacy Intervention Comments: Patients discharge medications reviewed with patient and patients family. - Change Amlodipine from 5mg to 10mg - Start Insuline Glargine 45u SQ HS (change spot of injection, may cause injection site reactions, monitor for hypoglyemia) - Start Insulin glargine-yfgn 45u SQ HS (change spot of injection, may cause injection site reactions, monitor for hypoglyemia) - Start Jardiance (will increase urination) - Start metformin (may cause GI upset and diarrhea) - Stop Clonidine patient had no further questions at this time. -Nba Valdez, Pharm Student
--- NOTE | 2023-05-04 13:13 | CARE MANAGER ---
Contacted patient related to hospital discharge. Patient states he wasn't sure if he needed to take insulin in the morning and at night. Reviewed discharge instructions with him and that Lantus should be at night only. He is checking his blood sugar and has follow up appointment on Sunday. Denies any other questions at this time. BANG Choudhary
[2023-06-25 11:55] LABS: POC Glucose,Bedside 559 (70-110)
== END 2023-05-03 13:24 | disposition home or self-care (01) ==
LOC: UTC 13:35 → ER 15:07 → 2ND 17:43
PROVIDERS: Nurse Practitioner Critical Care Medicine; Nurse Practitioner Family; Admitting Provider Internal Medicine Adolescent Medicine; Emergency Provider Emergency Medicine; PCP Family Medicine; Visit Provider Internal Medicine Adolescent Medicine
DX: E11.00 Type 2 diabetes mellitus with hyperosmolarity without nonketotic hyperglycemic-hyperosmolar coma (NKHHC) (principal); I11.0 Hypertensive heart disease with heart failure; I50.20 Unspecified systolic (congestive) heart failure; I48.0 Paroxysmal atrial fibrillation; E78.5 Hyperlipidemia, unspecified; I25.10 Atherosclerotic heart disease of native coronary artery without angina pectoris; E78.2 Mixed hyperlipidemia; E89.0 Postprocedural hypothyroidism; G47.33 Obstructive sleep apnea (adult) (pediatric); Z79.899 Other long term (current) drug therapy
CPT/HCPCS: 36415; 80048; 80053; 81001; 82009; 82962; 83036; 83690; 83735; 84132; 84436; 84443; 85025; 99285; G0378

== ENCOUNTER → 2023-05-15 23:20 | Outpatient (CLI) | payer BC, SELFPAY ==
[2023-05-15 19:28] LABS: Anion Gap 15.5 mEq/L (5-15); Blood Urea Nitrogen 26 mg/dl (9-20); Carbon Dioxide 29 mmol/L (22.0-30.0); Chloride 98 mmol/L (98-107); Estimated Glomerular Filt Rate 69 ml/min (>60); GFR (African American) 83 ML/MIN (>60); Glucose 93 mg/dl (74-100); Potassium 3.5 mmoL/L (3.5-5.1); Sodium 139 mmol/L (136-145)
== END ==
PROVIDERS: PCP Nurse Practitioner; Visit Provider Nurse Practitioner
DX: E11.9 Type 2 diabetes mellitus without complications (principal); Z79.4 Long term (current) use of insulin
CPT/HCPCS: 80048

== ENCOUNTER → 2023-06-06 08:49 | Outpatient (CLI) | payer BC, SELFPAY ==
--- NOTE | 2023-06-06 | CA_ITS ---
APPROVED REPORT EXAM: Comprehensive 2D, Doppler, and color-flow Echocardiogram Car Rental Agent: Xi Granger RT(R) Ht: 5 ft 8 in Wt: 191lbs BSA: 2.00 BP: 146/90 mmHg Indications: CP, HTN, DM, SOB, hyperlipidemia, AFIB, CAD, CHF, 40-45% EF 12/30/20. 2D Dimensions LVOT 2.00 cm (M/F) 1.5-2.5 LVEF (Torres's) 57.80 % M: 52 - 72 LV Volume 102.60 mL M: 62 - 150 LV Volume Index 51.04 mL/m2 M: 34 - 74 LA Volume 41.30 mL LA Volume Index 20.55 mL/m2 (M/F) 16-34 M-Mode Dimensions RVDd 3.53 cm (0.9-2.6) LA Diam 4.09 cm (1.9-4.0) LVDd 4.57 cm (3.5-5.7) Ao Diam 2.55 cm (2.0-3.7) LVDs 3.53 cm (3.5-5.7) IVSd 0.86 cm (0.6-1.1) PWd 0.89 cm (0.6-1.1) EF (Teich) 45.90% FS 22.80% EDV (Teich) 95.90 mL ESV (Teich) 51.90 mL LV Diastology E Decel Time 203.00 (160-240 msec) E/A Ratio 0.8 MED E' 6.90 (< 7 cm/sec) E'/MED E' Ratio 11.51 (>14) LAT E' 10.40 (<10 cm/sec) E/LAT E' Ratio 7.63 (>14) Aortic Valve AoV Peak Chung. 177.00 (50-130 cm/s) AO Peak GR. 12.60 mmHg AO Mean GR. 6.20 (<5 mmHg) AO VTI 33.22 (18-25 cm) Mitral Valve MV E Max Chung. 79.00 (40-130 cm/s) MV A Velocity 104.00 (40-130 cm/s) E/A Ratio 0.77 MV Decel. Time 203.00 (160-240 ms) MV PHT 60.00 ms Left Ventricle The left ventricle is normal size. The left ventricular systolic function is normal. The left ventricular ejection fraction is within the normal range. There is increased LV wall thickness. There is normal LV segmental wall motion. The left ventricular diastolic function is normal. LVEF is 60%. Right Ventricle The right ventricle is normal size. The right ventricular systolic function is normal. Atria The left atrium size is normal. The right atrium size is normal. There is no Doppler evidence of interatrial shunt. Aortic Valve The aortic valve is mildly thickened. There is no aortic valvular stenosis. Trace aortic regurgitation. Mitral Valve The mitral valve leaflets are mildly thickened. No evidence of mitral valve stenosis. Trace mitral regurgitation. Tricuspid Valve The tricuspid valve leaflets are thin and pliable. Trace tricuspid regurgitation. There is insufficient TR jet to estimate RVSP. Pulmonic Valve The pulmonary valve is normal in structure. Trace pulmonic regurgitation. Great Vessels The aortic root is normal in size. The ascending aorta is normal in size. IVC is normal in size and collapses >50% with inspiration. Pericardium Trivial pericardial effusion. No echo indications of tamponade. Conclusion There is normal biventricular systolic function. No significant valvular disease. Trivial pericardial effusion. No echo indications of tamponade. Compared to prior study from 2020, the LVEF is now improved. Electronically signed by : Gabrielle Meza, 06/06/2023 17:44:26
== END ==
LOC: RT 08:50
PROVIDERS: PCP Nurse Practitioner; Visit Provider Nurse Practitioner
DX: R06.09 Other forms of dyspnea (principal); I42.8 Other cardiomyopathies
CPT/HCPCS: 93306

== ENCOUNTER 2024-01-01 19:05 | Outpatient (CLI) | payer BC, MEDICARE, SELFPAY ==
[2024-01-01 19:04] LABS: Basophils # 0.1 K/mm3 (0-0.2); Basophils % 0.7 % (0.1-2.0); Eosinophils # 0.2 K/mm3 (0.0-0.4); Eosinophils % 2.1 % (0.1-12.0); Hematocrit 54.8 % (42.0-52.0); Hemoglobin 17.1 g/dL (14.1-18.0); Lymphocytes % 23.1 % (10-50); Mean Corpuscular HGB Conc 31.2 g/dL (31.8-35.4); Mean Corpuscular Hemoglobin 25.3 pg (27.0-31.2); Mean Platelet Volume 9.1 fl (7.4-10.4); Monocytes # 0.5 K/mm3 (0.1-1.0); Monocytes % 5.4 % (1.7-9.3); Neutrophils # 5.8 K/mm3 (1.8-7.8); Neutrophils % 68.7 % (37.0-80.0); Platelet Count 284 K/mm3 (142-424); Red Blood Count 6.76 M/mm3 (4.60-6.20); Red Cell Distribution Width 15.5 % (11.5-17.5); White Blood Count 8.4 K/mm3 (4.8-10.8)
[2024-01-01 20:24] LABS: 25-OH Vitamin D, Total 28.2 ng/mL (30-100)
[2024-01-01 20:25] LABS: Free T4 (Free Thyroxine) 1.31 ng/dl (0.78-2.19)
[2024-01-01 20:28] LABS: Microalbumin < 6.000 mg/L (0-16.7)
[2024-01-01 20:53] LABS: Creatinine,Urine Random 18 mg/dL (Not Estab.)
[2024-01-01 21:39] LABS: Chloride 104 mmol/L (98-107); Sodium 141 mmol/L (136-145)
[2024-01-01 21:40] LABS: Potassium 3.7 mmoL/L (3.5-5.1)
[2024-01-01 21:42] LABS: Alanine Aminotransferase 34 U/L (12-78); Albumin Level 4.2 g/dl (3.5-5.0); Albumin/Globulin Ratio 1.6 (1.1-1.8); Alkaline Phosphatase 68 U/L (38-126); Anion Gap 11.7 mEq/L (5-15); Aspartate Amino Transferase 35 U/L (17-59); Bilirubin,Total 0.5 mg/dl (0.2-1.3); Blood Urea Nitrogen 28 mg/dl (9-20); Calcium 9.5 mg/dl (8.4-10.2); Carbon Dioxide 29 mmol/L (22.0-30.0); Cholesterol 144 mg/dl (140-200); Estimated Glomerular Filt Rate 56 ml/min (>60); GFR (African American) 68 ML/MIN (>60); Globulin 2.7 g/dL (1.3-3.2); Glucose 84 mg/dl (74-100); Total Protein,Serum 6.9 g/dl (6.3-8.2); Triglycerides 67 mg/dl (30-150); VLDL Cholesterol 13 mg/dL (0-40)
[2024-01-01 21:43] LABS: HDL Cholesterol 36 mg/dl (40-60); Hemoglobin A1C 5.9 % (4.0-6.0)
[2024-01-01 21:55] LABS: Direct LDL Cholesterol 82.45 mg/dL (100-129)
[2024-01-01 22:17] LABS: Thyroid Stimulating Hormone 4.16 uIU/mL (0.465-4.68)
[2024-01-01 22:36] LABS: Vitamin B12 878 pg/mL (239-931)
== END 2024-01-01 23:59 ==
LOC: LAB.DROPOF 19:05
PROVIDERS: PCP Nurse Practitioner; Visit Provider Nurse Practitioner
DX: E11.9 Type 2 diabetes mellitus without complications (principal); E78.2 Mixed hyperlipidemia; I10 Essential (primary) hypertension; Z12.5 Encounter for screening for malignant neoplasm of prostate; E55.9 Vitamin D deficiency, unspecified; Z79.4 Long term (current) use of insulin; Z79.899 Other long term (current) drug therapy
CPT/HCPCS: 80053; 80061; 82043; 82306; 82570; 82607; 83036; 84439; 84443; 85025; G0103

== ENCOUNTER 2024-07-31 20:54 | Emergency (ER) | payer BC, MEDICARE, SELFPAY ==
[2024-07-31 20:56] VITALS: BP 179/94; PULSE 80; RESP 18; TEMP 37.2; O2SAT 98; BMI 28.9
--- NOTE | 2024-07-31 21:06 | HMH.EDGENADL ---
Discharge Plan Disposition Patient Disposition: Home, Self-Care Condition: Good Prescriptions Prescriptions: New amoxicillin-pot clavulanate 875-125 mg tablet 1 tab PO BID Qty: 20 0RF No Action levothyroxine 125 mcg tablet 125 mcg PO DAILY Patient Comments: TAKE 1 TABLET BY MOUTH DAILY (DME) FreeStyle Donte 14 Day [place] [facility] [place] See Rx Instructions .Route Qty: 1 0RF Rx Instructions: As directed tadalafil [Cialis] 5 mg tablet 5 mg PO DAILY PRN (Reason: sexual activity) Qty: 30 0RF amlodipine 10 mg tablet 20 mg PO DAILY Qty: 60 5RF furosemide 40 mg tablet 20 mg PO DAILY cetirizine 10 mg tablet 10 mg PO DAILY Qty: 30 11RF Eliquis 5 mg tablet 5 mg PO BIDWMEAL Qty: 180 1RF cholecalciferol (vitamin D3) 125 mcg (5,000 unit) tablet 125 mcg PO DAILY Qty: 30 5RF (DME) pen needle, diabetic [Unifine Pentips] 32 gauge x 5/32 needle See Rx Instructions .ROUTE .COMPLEX Qty: 100 6RF Dose Instruction: USE TO INJECT SEMGLEE INSULIN ONCE DAILY Rx Instructions: USE TO INJECT SEMGLEE INSULIN ONCE DAILY montelukast [Singulair] 10 mg tablet 10 mg PO HS Qty: 90 3RF rosuvastatin 20 mg tablet 20 mg PO DAILY Qty: 90 1RF zolpidem 10 mg tablet 10 mg PO HS PRN (Reason: Sleep) Qty: 30 3RF methocarbamol 500 mg tablet See Rx Instructions .ROUTE .COMPLEX Qty: 30 3RF Dose Instruction: Take 1 Tablet by mouth nightly at bedtime. Rx Instructions: Take 1 Tablet by mouth nightly at bedtime. (DME) FreeStyle Donte 3 Sensor Device See Rx Instructions .ROUTE .COMPLEX Qty: 1 4RF Dose Instruction: USE DIRECTED TO CHECK BLOOD SUGAR. CHANGE SENSORS EVERY 14 DAYS. Rx Instructions: USE DIRECTED TO CHECK BLOOD SUGAR. CHANGE SENSORS EVERY 14 DAYS. losartan 100 mg tablet 100 mg PO DAILY Qty: 30 11RF Jardiance 10 mg tablet See Rx Instructions .ROUTE .COMPLEX Qty: 30 0RF Dose Instruction: Take 1 Tablet by mouth once daily. Rx Instructions: Take 1 Tablet by mouth once daily. metformin 500 mg tablet See Rx Instructions .ROUTE .COMPLEX Qty: 60 0RF Dose Instruction: Take 1 Tablet by mouth twice daily with meals. Rx Instructions: Take 1 Tablet by mouth twice daily with meals. hydrochlorothiazide 12.5 mg tablet See Rx Instructions .ROUTE .COMPLEX Qty: 90 3RF Dose Instruction: TAKE ONE TABLET BY MOUTH DAILY Rx Instructions: TAKE ONE TABLET BY MOUTH DAILY insulin glargine [Lantus Solostar U-100 Insulin] 100 unit/mL (3 mL) insulin pen 45 unit SQ DAILY Qty: 3 2RF (DME) blood-glucose meter [Accu-Chek Betzy Plus Meter] Misc See Rx Instructions .Route Qty: 1 0RF Rx Instructions: As directed (DME) Accu-Chek Betzy Plus test strp Strip See Rx Instructions .Route Qty: 100 0RF Rx Instructions: As directed Referrals Follow up/Referrals: Marilyn Borrero APRN [Primary Care Provider] - See instructions Activity Restrictions/Add. Instructions Additional Instructions/Restrictions: As we discussed, we have cleaned your wound and repaired it with Steri-Strips. Please take the antibiotics as directed. Please return with any new or worsening symptoms. Clinical Impressions Clinical Impression: Finger laceration Instructions Patient Instructions: DI for Laceration Repair Print Language Print Language: Amharic Discharge ED Provider: Jadon Adamson General Adult HPI General Chief complaint: Wound/Laceration Stated complaint: AO10@2000 LT index finger Time Seen by Provider: 07/31/24 21:06 History of Present Illness HPI narrative: The patient presents with a chief complaint of a finger injury sustained while handling meat. The injury appears to involve a skin flap on the finger. The patient reports experiencing pain and discomfort due to the injury. The pain has been causing difficulty sleeping. The patient is concerned about the risk of infection, as the meat was partially frozen at the time of the incident. The patient confirms that not all of the meat being handled was frozen when the injury occurred. Please note that above description of symptoms, in this electronic medical record under categorization of recalled from ER triage doctor by RN are reflective of an initial nursing assessment, however, is not reflective of my full history and physical exam that was personally taken and clarified. Consequentially, this preceding description of symptoms, which may include the patient's categorized chief complaint in the EMR, do not reflect my personal clinical impression, and the ultimate description of history of present illness and patient stated complaints should be deferred to this section of the note. Unless stated otherwise or congruent with this section of the note, additional signs, symptoms, or incongruence should be interpreted as inaccurate with my clinical impression. Related Data Home Medications ?Medication ?Instructions ?Recorded ?Confirmed levothyroxine 125 mcg tablet 125 mcg PO DAILY thyroid 04/02/23 05/14/24 furosemide 40 mg tablet 20 mg PO DAILY 01/01/24 05/14/24 Previous Rx's ?Medication ?Instructions ?Recorded blood sugar diagnostic (Accu-Chek #100 ea 05/03/23 Betzy Plus test strips) blood-glucose meter (Accu-Chek #1 ea 05/03/23 Betzy Plus Meter) flash glucose scanning reader #1 ea 05/15/23 (MindFuseStyle Donte 14 Day [place]) apixaban 5 mg tablet (Eliquis) 5 mg PO BIDWMEAL Antiplatelet/Afib 10/30/23 #180 tabs tadalafil 5 mg tablet (Cialis) 5 mg PO DAILY PRN sexual activity 11/14/23 #30 tabs cholecalciferol (vitamin D3) 125 125 mcg PO DAILY #30 tabs 01/02/24 mcg (5,000 unit) tablet montelukast 10 mg tablet 10 mg PO HS #90 tabs 02/27/24 (Singulair) pen needle, diabetic 32 gauge x #100 ea 02/27/24 (Unifine Pentips) cetirizine 10 mg tablet 10 mg PO DAILY #30 tabs 03/12/24 rosuvastatin 20 mg tablet 20 mg PO DAILY Cholesterol #90 tabs 03/27/24 amlodipine 10 mg tablet 20 mg (2 x 10 mg) PO DAILY #60 tabs 05/14/24 zolpidem 10 mg tablet 10 mg PO HS PRN Sleep #30 tabs 05/20/24 methocarbamol 500 mg tablet See Rx Instructions .Route 05/28/24 .COMPLEX #30 tabs blood-glucose sensor (FreeStyle #1 ea 06/10/24 Donte 3 Sensor device) losartan 100 mg tablet 100 mg PO DAILY Blood Pressure #30 06/26/24 tabs empagliflozin 10 mg tablet See Rx Instructions .Route 07/21/24 (Jardiance) .COMPLEX #30 tabs hydrochlorothiazide 12.5 mg tablet See Rx Instructions .Route 07/21/24 .COMPLEX #90 tabs metformin 500 mg tablet See Rx Instructions .Route 07/21/24 .COMPLEX #60 tabs insulin glargine 100 unit/mL (3 45 unit (0.45 mL) SQ DAILY #3 mL 07/23/24 mL) subcutaneous pen (Lantus Solostar U-100 Insulin) amoxicillin 875 mg-potassium 1 tab PO BID #20 tabs 07/31/24 clavulanate 125 mg tablet Allergies Allergy/AdvReac Type Severity Reaction Status Date / Time strawberry Allergy Intermediate Rash Verified 05/14/24 10:48 [facility] Disclaimer: The information contained in this section may have been updated after the patient was seen, as this information can be updated by other users. Medical History Urticaria Vitamin D deficiency Type 2 diabetes mellitus without complications Unilateral hearing loss TMJ (dislocation of temporomandibular joint) He has limitation on mobility and obvious crepitus on the right side. Tinnitus Hearing loss HLD (hyperlipidemia) Anxiety BMI 30.0-30.9,adult PAF (paroxysmal atrial fibrillation) Erectile dysfunction Hypertensive emergency Afib CAD (coronary artery disease) Cardiomyopathy CHF (congestive heart failure) Graves disease Hypertension Surgical History H/O hernia repair Hx of colonoscopy Family History Other Hyperlipidemia Hypertension Thyroid disorder Social History (Updated 05/14/24 @ 10:52 by FERNANDO Gotti) Smoking Status: Never smoker second hand exposure: No alcohol intake: never substance use type: denies use current occupational status: retired and disabled Travel in the last 8 weeks: None household members: spouse, family and children housing: house caffeine: Yes Other Medical History Have you received the Flu Vaccine for this season: No Have you received the Pneumonia Vaccine: Yes ROS Obtained: Yes other As per HPI Physical Exam General General appearance: alert and in no apparent distress Head Head exam: atraumatic and normocephalic Eye Eye exam: Present normal appearance Neck Neck exam: Present normal inspection Chest Chest inspection: Present normal inspection and symmetric chest wall rise Respiratory Respiratory exam: Present normal lung sounds bilaterally; Absent respiratory distress Cardiovascular Cardiovascular exam: Present regular rate and normal rhythm Abdominal Exam Abdominal exam: Present soft Neurological Exam Neurological exam: Present alert and oriented X3 Psychiatric Psychiatric exam: Present normal affect and normal mood Skin Skin exam: Present warm and dry Other Other exam information: Linear laceration overlying dorsum of left index finger, no involvement of joint capsule, not grossly contaminated Medical Decision Making Medical Records Medical records reviewed: Yes I reviewed the patient's medical records. Screening: Per USPSTF and CDC recommendations, given the prevalence of disease in our region, it is our hospital?s policy to screen for HIV and viral Hepatitis for all patients aged 18 and over and those with ongoing risk factors. Max Inquiry Pt receiving controlled substance: No Vital Signs: 07/31/24 20:56 07/31/24 21:30 Temperature 99.0 F 99.0 F Temperature Source Oral Oral Pulse Rate 78 Pulse Rate [Right] 80 Respiratory Rate 18 18 Blood Pressure 167/90 H Blood Pressure [Right Arm] 179/94 H Blood Pressure Mean [Right Arm] 122 Blood Pressure Source [Right Arm] Automatic Cuff 02 Sat by Pulse Oximetry 98 Oxygen Delivery Method Room Air Room Air Orders (Tests/Meds): ED MEDICATIONS Discontinued Medications Generic Name Dose Route Start Last Admin Trade Name Freq PRN Reason Stop Dose Admin Lidocaine HCl 10 ml 07/31/24 21:13 07/31/24 21:19 Lidocaine 1% 10ml Mdv SUBCUT 07/31/24 21:14 10 ml ONCE ONE Administration Tetanus/Reduced Diphtheria/Acell Pertussis 0.5 ml 07/31/24 21:06 07/31/24 21:18 Tet/Diphth/Pert-Adult 0.5ml Syringe IM 07/31/24 21:07 0.5 ml .ONCE ONE Administration Medical Decision Narrative: Patient with history and exam per above presenting for evaluation of laceration, Diagnoses considered include laceration, tetanus exposure, ED workup and treatment included: ED MEDICATIONS Discontinued Medications Generic Name Dose Route Start Last Admin Trade Name Freq PRN Reason Stop Dose Admin Lidocaine HCl 10 ml 07/31/24 21:13 07/31/24 21:19 Lidocaine 1% 10ml Mdv SUBCUT 07/31/24 21:14 10 ml ONCE ONE Administration Tetanus/Reduced Diphtheria/Acell Pertussis 0.5 ml 07/31/24 21:06 07/31/24 21:18 Tet/Diphth/Pert-Adult 0.5ml Syringe IM 07/31/24 21:07 0.5 ml .ONCE ONE Administration Laceration repair was performed with Steri-Strips. I discussed my clinical impression with patient and answered all questions. At this time, the evidence for any other entities in the differential is insufficient to warrant any further testing or ED observation. This was explained to the patient. The patient was advised that persistent or worsening symptoms require further evaluation. Procedures Laceration Laceration 1: Site: finger Side (If applicable): left Description: flap Depth: simple, single layer Local Anesthetic: lidocaine 1% Amount of anesthesia used (mL): 3 Pre-repair: wound explored and irrigated extensively Skin layer closed with: other (Steri-Strip) Critical Care Critical Care Time Critical Care Time: No
[2024-07-31] MEDS: TET/DIPHTH/PERT-ADULT 0.5ML SYRINGE 0.5 ML IM (21:18)
[2024-07-31] MEDS: LIDOCAINE 1% 10ML MDV 10 ML SUBCUT (21:19)
[2024-07-31 21:30] VITALS: BP 167/90; PULSE 78; RESP 18; TEMP 37.2; O2SAT 98
== END 2024-07-31 21:32 | disposition home or self-care (01) ==
PROVIDERS: Emergency Provider Emergency Medicine; PCP Nurse Practitioner
DX: S61.211A Laceration without foreign body of left index finger without damage to nail, initial encounter (principal); M79.642 Pain in left hand; Z23 Encounter for immunization; W26.0XXA Contact with knife, initial encounter; Y93.9 Activity, unspecified; Y92.9 Unspecified place or not applicable
CPT/HCPCS: 12001; 90471; 90715; 99282

== ENCOUNTER 2024-11-13 10:32 | Emergency (ER) | payer BC, MEDICARE, SELFPAY ==
--- NOTE | 2024-11-13 10:46 | XR_ITS ---
FINAL REPORT CLINICAL HISTORY: PAIN AND SWELLING COMPARISON: None FINDINGS: RIGHT ELBOW 3 views of the right elbow were obtained. There is no acute fracture or dislocation. There is a moderate osteophyte along the posterior olecranon with prominent overlying soft tissue edema consistent with olecranon bursitis. IMPRESSION: Findings consistent with olecranon bursitis. Reviewed, Interpreted and Dictated by Jhony Castellanos MD Transcribed by Candy Davis Authenticated and [facility]
[2024-11-13 10:58] VITALS: BP 157/96; PULSE 94; RESP 18; TEMP 37.7; O2SAT 97; BMI 30.1
--- NOTE | 2024-11-13 11:09 | ED_ITS ---
Discharge Plan Disposition Patient Disposition: Home, Self-Care Condition: Good Prescriptions Prescriptions: No Action levothyroxine 125 mcg tablet 125 mcg PO DAILY Patient Comments: TAKE 1 TABLET BY MOUTH DAILY (DME) FreeStyle Donte 14 Day [place] [facility] [place] See Rx Instructions .Route Qty: 1 0RF Rx Instructions: As directed amlodipine 10 mg tablet 20 mg PO DAILY Qty: 60 5RF furosemide 40 mg tablet 20 mg PO DAILY Rezvoglar KwikPen 100 unit/mL (3 mL) insulin pen 45 unit SQ ONCE Patient Comments: INJECT 45 UNITS (0.45 ML) SUBCUTANEOUSLY ONCE DAILY irbesartan 300 mg tablet 300 mg PO DAILY Qty: 90 3RF Eliquis 5 mg tablet 5 mg PO BIDWMEAL Qty: 180 1RF cholecalciferol (vitamin D3) 125 mcg (5,000 unit) tablet 125 mcg PO DAILY Qty: 30 5RF (DME) pen needle, diabetic [Unifine Pentips] 32 gauge x 5/32 needle See Rx Instructions .ROUTE .COMPLEX Qty: 100 6RF Dose Instruction: USE TO INJECT SEMGLEE INSULIN ONCE DAILY Rx Instructions: USE TO INJECT SEMGLEE INSULIN ONCE DAILY montelukast [Singulair] 10 mg tablet 10 mg PO HS Qty: 90 3RF hydrochlorothiazide 12.5 mg tablet See Rx Instructions .ROUTE .COMPLEX Qty: 90 3RF Dose Instruction: TAKE ONE TABLET BY MOUTH DAILY Rx Instructions: TAKE ONE TABLET BY MOUTH DAILY zolpidem 10 mg tablet 10 mg PO HS PRN (Reason: Sleep) Qty: 30 3RF insulin glargine-yfgn 100 unit/mL (3 mL) insulin pen See Rx Instructions .ROUTE .COMPLEX Qty: 15 2RF Dose Instruction: Inject 45 units under the skin once daily. *RX SHOULD LAST 33 DAYS* THROW AWAY OPENED PEN AFTER 28 DAYS Rx Instructions: Inject 45 units under the skin once daily. *RX SHOULD LAST 33 DAYS* THROW AWAY OPENED PEN AFTER 28 DAYS methocarbamol 500 mg tablet See Rx Instructions .ROUTE .COMPLEX Qty: 30 3RF Dose Instruction: Take 1 Tablet by mouth nightly at bedtime. Rx Instructions: Take 1 Tablet by mouth nightly at bedtime. rosuvastatin 20 mg tablet 20 mg PO DAILY Qty: 90 3RF Jardiance 10 mg tablet See Rx Instructions .ROUTE .COMPLEX Qty: 30 0RF Dose Instruction: Take 1 Tablet by mouth once daily. Rx Instructions: Take 1 Tablet by mouth once daily. (DME) FreeStyle Donte 3 Plus Sensor Device See Rx Instructions .ROUTE .COMPLEX Qty: 2 11RF Dose Instruction: USE DIRECTED TO CHECK BLOOD SUGAR. CHANGE SENSORS EVERY 15 DAYS. Rx Instructions: USE DIRECTED TO CHECK BLOOD SUGAR. CHANGE SENSORS EVERY 15 DAYS. metformin 500 mg tablet See Rx Instructions .ROUTE .COMPLEX Qty: 180 1RF Dose Instruction: Take 1 Tablet by mouth twice daily with meals. Rx Instructions: Take 1 Tablet by mouth twice daily with meals. (DME) blood-glucose meter [Accu-Chek Betzy Plus Meter] Misc See Rx Instructions .Route Qty: 1 0RF Rx Instructions: As directed (DME) Accu-Chek Betzy Plus test strp Strip See Rx Instructions .Route Qty: 100 0RF Rx Instructions: As directed Referrals Follow up/Referrals: Marilyn Borrero APRN [Primary Care Provider] - See instructions Juan Jose Yin DO [Staff Physician] - See instructions (call office for appointment) Activity Restrictions/Add. Instructions Additional Instructions/Restrictions: * Rest:?Avoid activities that aggravate the pain.? * Ice:?Apply ice packs to the affected area for 15-20 minutes at a time, several times a day.? * Compression:?Wear an elbow brace or sling to support the elbow and reduce pressure.? * Elevation:?Keep the elbow elevated above heart level when possible.? * Nonsteroidal anti-inflammatory drugs (NSAIDs):?Ropr-kko-gpgsosi pain relievers such as ibuprofen or naproxen can help reduce pain and inflammation.? Follow up with your Family Doctor if pain persist Follow up with Orthopedics Clinical Impressions Clinical Impression: Bursitis, olecranon Instructions Patient Instructions: DI for Elbow Bursitis, How To Perform RICE (Rest, Ice, Compress, Elevate) Print Language Print Language: Gabonese Discharge ED Provider: Zahraa Gonzalez [facility] [place] HPI General Stated complaint: AO-11/10/24, pain and swelling R elbow Mode of Arrival: Ambulatory Source of Information: Patient Limitations: No Limitations Time Seen by Provider: 11/13/24 11:10 Description of Symptoms (Recalled from Triage Doc. by RN): PAIN TO RIGHT ELBOW HEENT Symptoms (Recalled from RN notes): No Resp Symptoms (Recalled from RN notes): No Skin Symptoms (Recalled from RN notes): No MS Symptoms (Recalled from RN notes): Yes Functional Status (Recalled from RN notes): NA History of Present Illness Provider Complaint: Patient states that he fell and bumped his right elbow a couple nights ago and today he noticed it looked like a bubble on his elbow and it is sore to the touch States he was worried that he may have broke it or something when he fell so he came in to get it checked Related Data Home Medications ?Medication ?Instructions ?Recorded ?Confirmed levothyroxine 125 mcg tablet 125 mcg PO DAILY thyroid 04/02/23 11/13/24 furosemide 40 mg tablet 20 mg PO DAILY 01/01/24 11/13/24 insulin glargine-aglr 100 unit/mL 45 unit SQ ONCE 11/13/24 11/13/24 (3 mL) subcutaneous pen (Magdalene Valerio) Previous Rx's ?Medication ?Instructions ?Recorded blood sugar diagnostic (Accu-Chek #100 ea 05/03/23 Betzy Plus test strips) blood-glucose meter (Accu-Chek #1 ea 05/03/23 Betzy Plus Meter) flash glucose scanning reader #1 ea 05/15/23 (FreeStyle Donte 14 Day [place]) apixaban 5 mg tablet (Eliquis) 5 mg PO BIDWMEAL Antiplatelet/Afib 10/30/23 #180 tabs cholecalciferol (vitamin D3) 125 125 mcg PO DAILY #30 tabs 01/02/24 mcg (5,000 unit) tablet montelukast 10 mg tablet 10 mg PO HS #90 tabs 02/27/24 (Singulair) pen needle, diabetic 32 gauge x #100 ea 02/27/24 (Unifine Pentips) amlodipine 10 mg tablet 20 mg (2 x 10 mg) PO DAILY #60 tabs 05/14/24 hydrochlorothiazide 12.5 mg tablet See Rx Instructions .Route 07/21/24 .COMPLEX #90 tabs zolpidem 10 mg tablet 10 mg PO HS PRN Sleep #30 tabs 09/17/24 insulin glargine-yfgn 100 unit/mL See Rx Instructions .Route 10/09/24 (3 mL) subcutaneous pen .COMPLEX #15 mL methocarbamol 500 mg tablet See Rx Instructions .Route 10/13/24 .COMPLEX #30 tabs rosuvastatin 20 mg tablet 20 mg PO DAILY Cholesterol #90 tabs 10/14/24 empagliflozin 10 mg tablet See Rx Instructions .Route 10/16/24 (Jardiance) .COMPLEX #30 tabs blood-glucose sensor (FreeStyle #2 ea 11/12/24 Donte 3 Plus Sensor device) metformin 500 mg tablet See Rx Instructions .Route 11/12/24 .COMPLEX #180 tabs irbesartan 300 mg tablet 300 mg PO DAILY #90 tabs 11/13/24 Allergies Allergy/AdvReac Type Severity Reaction Status Date / Time strawberry Allergy Intermediate Rash Verified 11/13/24 10:13 Worker's Comp Is this a Worker's Comp case?: No [facility] Disclaimer: The information contained in this section may have been updated after the patient was seen, as this information can be updated by other users. Medical History Urticaria Vitamin D deficiency Type 2 diabetes mellitus without complications Unilateral hearing loss TMJ (dislocation of temporomandibular joint) He has limitation on mobility and obvious crepitus on the right side. Tinnitus Hearing loss HLD (hyperlipidemia) Anxiety BMI 30.0-30.9,adult PAF (paroxysmal atrial fibrillation) Erectile dysfunction Hypertensive emergency Afib CAD (coronary artery disease) Cardiomyopathy CHF (congestive heart failure) Graves disease Hypertension Surgical History H/O hernia repair Hx of colonoscopy Family History Other Hyperlipidemia Hypertension Thyroid disorder Social History Smoking Status: Never smoker second hand exposure: No alcohol intake: never substance use type: denies use current occupational status: retired and disabled Travel in the last 8 weeks: None household members: spouse, family and children housing: house caffeine: Yes Have you lived/traveled outside [place] in past 30 days?: No Contact w/someone who lives/traveled outside [place] past 30 days?: No Exposure to someone with infectious disease in past 14 days?: No Do you have a fever (greater than 100.4 F or 38 C)?: No Have you tested positive for COVID-19: No Exposed to someone with COVID-19 in past 14 days?: No Do you have a sore throat?: No Do you have a cough?: No Do you have any weakness?: No Do you have any diarrhea?: No Are you experiencing any unusual bleeding?: No Do you have any muscle aches/pain?: No Do you have any abdominal pain?: No Are you experiencing loss of taste or smell?: No ROS Obtained: Yes All systems reviewed & no additional complaints except as documented and Yes Systems reviewed as appropriate & no additional complaints except as documented Constitutional Constitutional: Reports system reviewed and no additional complaints, except as documented and Reports as per HPI ENT Ears, Nose, Mouth, and Throat: Reports system reviewed and no additional complaints, except as documented and Reports as per HPI Cardiovascular Cardiovascular: Reports system reviewed and no additional complaints, except as documented and Reports as per HPI Respiratory Respiratory: Reports system reviewed and no additional complaints, except as documented and Reports as per HPI Gastrointestinal Gastrointestingal: Reports system reviewed and no additional complaints, except as documented and as per HPI Musculoskeletal Musculoskeletal: Reports system reviewed and no additional complaints, except as documented, Reports as per HPI and Reports other Comments: pain and swelling in right elbow after falling and hitting it a couple nights ago Physical Exam General General appearance: alert and in no apparent distress ENT ENT exam: Present normal exam, normal oropharynx, mucous membranes moist and TM's normal bilaterally Respiratory Respiratory exam: Present normal lung sounds bilaterally; Absent respiratory distress or wheezes Cardiovascular Cardiovascular exam: Present regular rate, normal rhythm and normal heart sounds Expanded Upper Extremity Exam Right: Elbow exam: Present tenderness, swelling and other (appears like Olecranon bursisits); Absent abrasion, ecchymosis, deformity or erythema Forearm/Wrist exam: Present normal inspection Hand exam: Present normal inspection Neurological Exam Neurological exam: Present alert, oriented X3 and normal gait Medical Decision Making Medical Records Screening: Per USPSTF and CDC recommendations, given the prevalence of disease in our region, it is our hospital?s policy to screen for HIV and viral Hepatitis for all patients aged 18 and over and those with ongoing risk factors. Max Inquiry Pt receiving controlled substance: No Max was queried for this patient: No Vital Signs: 11/13/24 10:58 Temperature 99.8 F H Temperature Source Oral Pulse Rate [Left Radial] 94 H Respiratory Rate 18 Blood Pressure [Right Arm] 157/96 H Blood Pressure Mean [Right Arm] 116 Blood Pressure Source [Right Arm] Automatic Cuff Blood Pressure Position [Right Arm] Supine 02 Sat by Pulse Oximetry 97 Orders (Tests/Meds): ORDERS Category Date Time Status XR elbow RT min 3V Stat Exams 11/13/24 10:46 Taken Radiology Data #1: Image(s): Elbow Image Reviewed: Yes I have reviewed radiologist's interpretation Findings consistent with Olecranon bursisits
[2024-11-13 12:36] VITALS: BP 157/96; PULSE 94; RESP 18; TEMP 37.7; O2SAT 97
== END 2024-11-13 13:02 | disposition home or self-care (01) ==
PROVIDERS: Emergency Provider Nurse Practitioner; PCP Nurse Practitioner
DX: M70.21 Olecranon bursitis, right elbow (principal)
CPT/HCPCS: 73080; 99213; G0381

== ENCOUNTER 2025-03-18 08:54 | Outpatient (CLI) | payer BC, MEDICARE, SELFPAY ==
[2025-03-18 18:49] LABS: Alanine Aminotransferase 26 U/L (12-78); Albumin Level 4.7 g/dl (3.5-5.0); Alkaline Phosphatase 74 U/L (38-126); Anion Gap 12.7 mEq/L (5-15); Aspartate Amino Transferase 32 U/L (17-59); Bilirubin,Direct 0.3 mg/dl (0.0-0.4); Bilirubin,Indirect 0.5 mg/dL (0.0-0.9); Bilirubin,Total 0.8 mg/dl (0.2-1.3); Bilirubin,Unconjugated 0.6 mg/dL (0.0-1.1); Blood Urea Nitrogen 25 mg/dl (9-20); Calcium 10.5 mg/dl (8.4-10.2); Carbon Dioxide 27 mmol/L (22.0-30.0); Chloride 102 mmol/L (98-107); Chol/HDL Ratio 3.9 (1-3.5); Cholesterol 153 mg/dl (140-200); Estimated Glomerular Filt Rate 56 ml/min (>60); GFR (African American) 68 ML/MIN (>60); Glucose 105 mg/dl (74-100); HDL Cholesterol 39 mg/dl (40-60); Potassium 3.7 mmoL/L (3.5-5.1); Sodium 138 mmol/L (136-145); Triglycerides 80 mg/dl (30-150); VLDL Cholesterol 16 mg/dL (0-40)
[2025-03-18 18:59] LABS: NT Pro Brain Natriuretic Pep. < 20.0 pg/mL (0-125)
[2025-03-18 19:00] LABS: Direct LDL Cholesterol 86.68 mg/dL (100-129)
[2025-03-18 19:03] LABS: 25-OH Vitamin D, Total 29.1 ng/mL (30-100)
[2025-03-18 19:06] LABS: T4 (Thyroxine) 9.2 ug/dl (5.53-11.0)
[2025-03-18 19:15] LABS: Basophils # 0.1 K/mm3 (0-0.2); Basophils % 0.8 % (0.1-2.0); Eosinophils # 0.1 Kmm3 (0.0-0.4); Eosinophils % 1.4 % (0.1-12.0); Hemoglobin 17.1 g/dL (14.1-18.0); Immature Granulocytes # 0.03 10^3uL; Immature Granulocytes % 0.3 %; Lymphocytes # 1.9 K/mm3 (0.7-4.5); Mean Corpuscular HGB Conc 30.8 g/dL (31.8-35.4); Mean Corpuscular Hemoglobin 24.7 pg (27.0-31.2); Mean Corpuscular Volume 80.1 fl (80-94); Mean Platelet Volume 10.2 fl (7.4-10.4); Monocytes # 0.6 K/mm3 (0.1-1.0); Monocytes % 6.3 % (1.7-9.3); Neutrophils # 6.6 K/mm3 (1.8-7.8); Neutrophils % 71.2 % (37.0-80.0); Nucleated Red Blood Cells # 0 10^3/uL; Nucleated Red Blood Cells % 0 %; Platelet Count 304 K/mm3 (142-424); Red Blood Count 6.93 M/mm3 (4.60-6.20); Red Cell Distribution Width 17.9 % (11.5-17.5); Red Cell Distribution Width-SD 46.2 fL; White Blood Count 9.3 K/mm3 (4.8-10.8)
[2025-03-18 19:22] LABS: Hematocrit 55.5 % (42.0-52.0)
[2025-03-18 19:56] LABS: Hemoglobin A1C 5.8 % (4.0-6.0)
--- OUTSIDE RECORDS SUMMARY | 2025-03-19 08:59 | XMS_ITS | Clinical Summary ---
Author Organization Healthcare Address [address] [place] [address] Care Team Providers Care International Trade Analyst Name Role Phone Unavailable Primary Care Provider Unavailabl e Family History Medical History Relation Name Comments Diabetes Mother Hypertension Mother Relation Name Status Comments Mother Social History Tobacco Use Types Packs/Day Years Used Date Smoking Tobacco: Never Sex and Gender Information Value Date Recorded Sex Assigned at Not on file Legal Sex Male 8:26 PM EDT Gender Identity Not on file Sexual Orientation Not on file Last Filed Vital Signs Vital Sign Reading Time Taken Comments Blood Pressure 215/107 10/10/2017 10:25 AM EST Pulse 69 10/10/2017 10:25 AM EST Temperature - - Respiratory Rate - - Oxygen Saturation - - Inhaled Oxygen Concentration - - Weight 95.6 kg (210 lb 12.2 oz) 09/03/2017 9:15 AM EST Height 174 cm (5' 8.5 ) 09/03/2017 9:15 AM EST Body Mass Index 31.58 09/03/2017 9:15 AM EST Plan of Treatment Health Maintenance Due Date Last Done Comments [facility]-Depression Screening 1963 [facility]-Infant/Child/Adol SDOH Screenings 1965 [facility]- SDOH Screenings 1981 [facility]-Adult SDOH Screenings 1981 [facility]-DTaP,Tdap,and Td Vaccine s (1 - Tdap) 1982 CT Colonography 2008 Colonoscopy 2008 FIT-DNA 2008 FIT 2008 FOBT 2008 Sigmoidoscopy 2008 [facility]-Colorectal Cancer Screening 2008 [facility]-Pneumococcal Vaccine: 50 + Years (1 of 1 - PCV) 2013 [facility]-Zoster Vaccines (1 of 2) 2013 [id number] Vaccine (1 - 20 24-25 season) 2024 [facility]-Influenza Vaccine (Seas[place] n Ended) 2025 [facility]-RSV Vaccine: 60+ Years o r (1 - 1-dose 75+ series) 2038 HPV Vaccines Aged Out No longer eligi ble based on patient's age to complete this topic [facility]-HIB Vaccines Aged Out No longer e ligible based on patient's age to complete this topic [facility]-Hepatitis A Vaccines Aged Out No longer eligible based on patient's age to complete this topic [facility]-IPV Vaccines Aged Out No longer e ligible based on patient's age to complete this topic [facility]-Rotavirus Vaccines Aged Out No lo nger eligible based on patient's age to complete this topic
== END 2025-03-18 23:59 | disposition home or self-care (01) ==
PROVIDERS: PCP Physician Assistant; Visit Provider Physician Assistant
DX: E11.9 Type 2 diabetes mellitus without complications (principal); E55.9 Vitamin D deficiency, unspecified; E78.2 Mixed hyperlipidemia
CPT/HCPCS: 80048; 80061; 80076; 82306; 83036; 83880; 84436; 84443; 85025

== ENCOUNTER 2025-03-31 10:19 | Outpatient (CLI) | payer BC, MEDICARE, SELFPAY ==
[2025-03-31 19:57] LABS: Creatinine,Urine Random 23 mg/dL (Not Estab.); Microalbumin < 6.000 mg/L (0-16.7)
--- OUTSIDE RECORDS SUMMARY | 2025-04-01 12:42 | XMS_ITS | Clinical Summary ---
Author Organization Healthcare Address [address] [place] [address] Care Team Providers Care Janitor Head Name Role Phone Unavailable Primary Care Provider [...] 2013 [facility]-Zoster Vaccines (1 of 2) 2013 [id number] Vaccine (1 - 20 24-25 season) 2024 [...]
== END 2025-03-31 23:59 | disposition home or self-care (01) ==
LOC: LAB.DROPOF 04-01 12:40
PROVIDERS: PCP Nurse Practitioner; Visit Provider Nurse Practitioner
DX: E11.9 Type 2 diabetes mellitus without complications (principal)
CPT/HCPCS: 82043; 82570